=== PATIENT | female | born 1990 | race Caucasian/White ===

== ENCOUNTER 2021-08-13 14:04 | Outpatient (REF) | payer OTHER, SELFPAY ==
[2021-08-13 16:34] LABS: MANUAL DIFF FLAG NO
[2021-08-13 16:41] LABS: Basophils Percent Auto 0.2 % (0-2); Eosinophils Absolute Auto 0.1 X10*3/uL (0.0-0.4); Eosinophils Percent Auto 0.5 % (0-4); Hematocrit 41.7 % (37.0-47.0); Hemoglobin 13.4 g/dl (12.0-16.0); Imm Gran Abs Auto 0.04 X10*3/uL (0.00-0.03); Imm Gran Pct Auto 0.4 % (0.0-0.4); Lymphocytes Absolute Auto 2.3 X10*3/uL (1.2-4.9); Lymphocytes Percent Auto 23.2 % (20-40); Mean Corpuscular HGB Conc 32.1 g/dl (31.0-35.0); Mean Corpuscular Hemoglobin 29.1 pg (27.0-33.0); Mean Corpuscular Volume 90.5 fL (80.0-98.0); Mean Platelet Volume 11.8 fL (9.4-12.3); Monocytes Absolute Auto 0.6 X10*3/uL (0.1-1.2); Monocytes Percent Auto 5.7 % (2-11); Platelet Count 355 X10*3/uL (160-400); Red Blood Count 4.61 X10*6/uL (4.20-5.50); Red Cell Distribution Width 13.1 % (11.0-16.0)
[2021-08-13 16:47] LABS: Alanine Aminotransferase 19 U/L (0-31); Albumin Level 4.4 g/dL (3.5-5.0); Alkaline Phosphatase 66 U/L (39-117); Anion Gap 12 (12-20); Aspartate Amino Transferase 14 U/L (5-31); Bilirubin Total 0.6 mg/dL (0.0-1.0); Blood Urea Nitrogen 12 mg/dL (9-16); Calcium 9.3 mg/dL (8.4-10.2); Carbon Dioxide 24 mmol/L (22-29); Chloride 104 mmol/L (96-108); Cholesterol 176 mg/dL; Estimated Glomerular Filt Rate > 60; Glucose Fasting 87 mg/dL (60-99); HDL Cholesterol 40 mg/dL; LDL Cholesterol Calculated 109 mg/dl; Potassium 4.2 mmol/L (3.3-5.1); Sodium 136 mmol/L (135-145); Total Protein 7.6 g/dL (6.5-8.0); Triglycerides 138 mg/dL
[2021-08-13 17:08] LABS: TSH reflex Free T4 1.29 uIU/mL (0.32-4.0)
== END 2021-08-13 14:05 | disposition home or self-care (01) ==
LOC: HO.HMGCLDS 14:04
PROVIDERS: Visit Provider Internal Medicine
DX: Z00.01 Encounter for general adult medical examination with abnormal findings (principal); E66.01 Morbid (severe) obesity due to excess calories; F33.9 Major depressive disorder, recurrent, unspecified; F41.1 Generalized anxiety disorder
CPT/HCPCS: 36415; 80053; 80061; 84443; 85025

== ENCOUNTER → 2022-10-15 15:24 | Outpatient (BNVA) | payer OTHER, SELFPAY | PROVIDERS: PCP Internal Medicine; Visit Provider Physician Assistant | DX: Z13.89 Encounter for screening for other disorder (principal) ==

== ENCOUNTER → 2022-10-20 08:04 | Outpatient (BNVA) | payer OTHER, SELFPAY | PROVIDERS: PCP Internal Medicine; Visit Provider Surgery ==

== ENCOUNTER 2022-10-28 12:27 | Outpatient (REF) | payer OTHER, SELFPAY ==
--- NOTE | ~2022-10-28 | XR_ITS ---
EXAMINATION: XR CHEST CLINICAL INFORMATION: Obesity COMPARISON: None available. TECHNIQUE: 2 views of the chest were obtained. FINDINGS: No significant abnormality is noted involving the heart, lungs, mediastinum, bony thorax or soft tissues. XR/XR chest 2V IMPRESSION: Unremarkable examination.
--- NOTE | 2022-10-28 12:32 | ECG_ITS ---
Test Reason : MORBID OBESITY Blood Pressure : / mmHG Vent. Rate : 081 BPM Atrial Rate : 081 BPM P-R Int : 168 ms QRS Dur : 096 ms QT Int : 390 ms P-R-T Axes : 056 022 029 degrees QTc Int : 453 ms Normal sinus rhythm Incomplete right bundle branch block Borderline ECG No previous ECGs available Referred By: Tanner Nicholson Electronically Signed By:Chato Silva
[2022-10-28 12:47] LABS: MANUAL DIFF FLAG NO
[2022-10-28 14:30] LABS: Basophils Percent Auto 0.6 % (0-2); Eosinophils Percent Auto 0.6 % (0-4); Hematocrit 41.7 % (37.0-47.0); Hemoglobin 13.7 g/dl (12.0-16.0); Imm Gran Abs Auto 0.01 X10*3/uL (0.00-0.03); Imm Gran Pct Auto 0.1 % (0.0-0.4); Lymphocytes Absolute Auto 1.6 X10*3/uL (1.2-4.9); Mean Corpuscular HGB Conc 32.9 g/dl (31.0-35.0); Mean Corpuscular Hemoglobin 29.3 pg (27.0-33.0); Mean Corpuscular Volume 89.1 fL (80.0-98.0); Mean Platelet Volume 11.4 fL (9.4-12.3); Monocytes Absolute Auto 0.5 X10*3/uL (0.1-1.2); Monocytes Percent Auto 6.8 % (2-11); Neutrophils Absolute Auto 4.9 x10*3/uL (2.0-8.3); Neutrophils Percent Auto 68.9 % (45-73); Platelet Count 353 X10*3/uL (160-400); Red Blood Count 4.68 X10*6/uL (4.20-5.50); Red Cell Distribution Width 12.4 % (11.0-16.0)
[2022-10-28 14:55] LABS: Estimated Average Glucose 85 mg/dL; Hemoglobin A1c % 4.6 %
[2022-10-28 16:28] LABS: Ferritin 56 ng/mL (10-122); Folate 15.5 ng/mL (> or = 4.0); Insulin 14 uU/mL (2-29); TSH reflex Free T4 1.78 uIU/mL (0.32-4.0); Vitamin B12 376 pg/mL (200-900); Vitamin D 25-OH Total 7.8 ng/mL (>30)
[2022-10-28 17:10] LABS: Alanine Aminotransferase 24 U/L (0-31); Albumin Level 4.5 g/dL (3.5-5.0); Alkaline Phosphatase 70 U/L (39-117); Anion Gap 15 (12-20); Aspartate Amino Transferase 18 U/L (5-31); Bilirubin Total 0.8 mg/dL (0.0-1.0); Blood Urea Nitrogen 9 mg/dL (9-16); C Reactive Protein 0.17 mg/dL (< or = 0.50); Calcium 9.6 mg/dL (8.4-10.2); Carbon Dioxide 23 mmol/L (22-29); Chloride 107 mmol/L (96-108); Cholesterol 169 mg/dL; Estimated Glomerular Filt Rate > 60; Glucose Random 82 mg/dL (60-115); HDL Cholesterol 39 mg/dL; Iron 60 mcg/dL (30-160); LDL Cholesterol Calculated 114 mg/dl; Percent Iron Saturation 21 % (15-50); Potassium 4.3 mmol/L (3.3-5.1); Sodium 142 mmol/L (135-145); Total Iron Binding Capacity 289 mcg/dL (228-428); Total Protein 7.3 g/dL (6.5-8.0); Triglycerides 84 mg/dL; Unsaturated Iron Binding 229 ug/dL
[2022-10-29 13:14] LABS: Calcium (PTHI) 9.6 mg/dL (8.6-10.2); PTHI 115 pg/mL (16-77)
[2022-11-02 16:08] LABS: Zinc 73 mcg/dL (60-130)
[2022-11-04 03:59] LABS: Vitamin A 36 mcg/dL (38-98)
[2022-11-04 05:19] LABS: Vitamin B1 7 nmol/L (8-30)
== END 2022-10-28 12:28 | disposition home or self-care (01) ==
LOC: HO.XRAY 12:27
PROVIDERS: PCP Internal Medicine; Visit Provider Surgery
DX: Z11.2 Encounter for screening for other bacterial diseases (principal); E66.01 Morbid (severe) obesity due to excess calories
CPT/HCPCS: 36415; 71046; 80053; 80061; 82306; 82607; 82728; 82746; 83036; 83525; 83540; 83970; 84425; 84443; 84590; 84630; 85025; 86140; 93005

== ENCOUNTER 2022-10-28 19:08 | Outpatient (REF) | payer OTHER, SELFPAY ==
[2022-10-30 14:54] LABS: H Pylori Breath Test Negative (Negative)
== END 2022-10-28 19:09 | disposition home or self-care (01) ==
LOC: HO.LNP 19:08
PROVIDERS: Visit Provider Surgery
DX: E66.01 Morbid (severe) obesity due to excess calories (principal)
CPT/HCPCS: 83013

== ENCOUNTER → 2022-11-07 16:00 | Outpatient (BNVA) | payer OTHER, SELFPAY | PROVIDERS: PCP Internal Medicine; Visit Provider Counselor Mental Health ==

== ENCOUNTER → 2022-11-19 08:08 | Outpatient (BNVA) | payer OTHER, SELFPAY | PROVIDERS: PCP Internal Medicine; Visit Provider Surgery ==

== ENCOUNTER → 2022-11-26 15:47 | Outpatient (BNVA) | payer OTHER, SELFPAY | PROVIDERS: PCP Internal Medicine; Visit Provider Dietitian, Registered | DX: E66.9 Obesity, unspecified (principal); Z71.3 Dietary counseling and surveillance | CPT/HCPCS: 97802 ==

== ENCOUNTER 2022-11-27 08:13 | Outpatient (REF) | payer OTHER, SELFPAY ==
--- NOTE | ~2022-11-27 | FL_ITS ---
EXAMINATION: XR FL UPPER GI WITH AIR CLINICAL INFORMATION: Morbid/severe obesity due to excess calories. COMPARISON: None available. TECHNIQUE: Routine upper GI air-contrast study was performed in upright and lying position. FINDINGS: Following oral administration of thick barium and effervescent granules, there is normal propagation of bolus from the oral cavity through the pharynx, esophagus into stomach without any evidence of obstruction, narrowing or stricture. The course, caliber and peristalsis of the stomach, duodenal bulb and the sweep is normal. The mucosal pattern of the stomach and the duodenum is normal. FLUOROSCOPY TIME: 1.3 minutes. DOSE AREA PRODUCT: 32.225 uGy-m2 (microgray-meter squared). FL/FL upper GI w air IMPRESSION: Unremarkable upper GI air-contrast study.
== END 2022-11-27 08:14 | disposition home or self-care (01) ==
LOC: HO.XRAY 08:13
PROVIDERS: PCP Internal Medicine; Visit Provider Surgery
DX: E66.01 Morbid (severe) obesity due to excess calories (principal)
CPT/HCPCS: 74246

== ENCOUNTER 2022-11-28 13:05 | Outpatient (REF) | payer OTHER, SELFPAY ==
--- NOTE | ~2022-11-28 | US_ITS ---
EXAMINATION: US COMPLETE ABDOMEN WITH LIVER ELASTOGRAPHY CLINICAL INFORMATION: Obesity COMPARISON: None available. TECHNIQUE: Real-time imaging of the abdominal viscera. Noninvasive ultrasound liver fibrosis assessment is performed using Laura ElastPQ point quantification shear wave elastography (2D-SWE) with a C5-2 MHz transducer. Multiple elastography samples are obtained. FINDINGS: PANCREAS: Not well visualized due to bowel gas. ABDOMINAL AORTA: The proximal, middle, and distal aortic segments are normal in caliber. INFERIOR VENA CAVA: Visualized portions are normal. LIVER: Liver echotexture is slightly increased. The liver is normal in size and contour.. No focal lesion or intrahepatic biliary duct dilatation. The right lobe measures 17 cm in length. The left lobe measures 10 cm in length. Portal flow is normal/hepatopedal Shear wave liver elastography median stiffness is 1.6 m/s (reference: normal median stiffness is 1.3 m/s or less). IQR/median stiffness to assess sampling precision is 0.06 (reference: good quality data set is IQR/median stiffness of 0.15 or less). GALLBLADDER: Normal. The gallbladder is physiologically distended without evidence of stones, sludge, polyps, wall thickening or pericholecystic fluid. COMMON BILE DUCT: Normal in caliber measuring 0.4 cm in diameter. RIGHT KIDNEY: 2 echogenic foci with twinkle artifact suggestive of stones measuring 9 x 4 x 7 mm and 5 x 4 x 5 mm in the midpole. No hydronephrosis. No focal parenchymal lesions. The kidney measures 10 cm in maximum dimension. LEFT KIDNEY: 1.3 x 1 x 1.1 cm cyst in the midpole. No imaging follow-up recommended. No hydronephrosis. No renal calculi or focal parenchymal lesions. The kidney measures 11.4 cm in maximum dimension. SPLEEN: Likely enlarged The spleen measures 14 cm in maximum dimension. FREE FLUID: None. US/US abdomen comp w elastography IMPRESSION: 1. Impression echogenic liver probably representing fatty infiltration. Right renal stones. Limited visualization of the pancreas. 2. Liver elastography: Adequate liver sampling. In the absence of other known clinical signs, rules out compensated advanced chronic liver disease. REFERENCE: Society of Radiologists in Ultrasound Liver Stiffness Thresholds (2020): LIVER STIFFNESS THRESHOLDS: *Liver Stiffness equal or less than 1.3 m/s: High probability of being normal. *Liver Stiffness less than 1.7 m/s: In the absence of other known clinical signs, rules out compensated advanced chronic liver disease. *Liver Stiffness 1.7-2.1 m/s: Suggestive of compensated advanced chronic liver disease but need further test for confirmation. *Liver Stiffness over 2.1 m/s: Rules in compensated advanced chronic liver disease. *Liver Stiffness over 2.4 m/s: Suggestive of clinically significant portal hypertension. QUALITY OF DATA SET: *IQR/Median value equal or less than 0.15 implies a quality data set. *IQR/Median value over 0.15 implies a poor quality data set. SIGNIFICANT CHANGE FROM PRIOR EXAM: Significant change if liver stiffness measurement is 10% or greater from prior exam. OTHER CONSIDERATIONS: The stage of liver fibrosis may be overestimated in the setting of acute hepatitis, liver inflammation, elevated liver function tests, hepatic vascular congestion, obstructive cholestasis, non-fasting state, and infiltrative diseases such as amyloidosis and lymphoma. In some patients with NAFLD, the liver stiffness thresholds for compensated advanced chronic liver disease may be lower. In causes other than viral hepatitis and NAFLD, liver stiffness thresholds are not well established.
== END 2022-11-28 13:06 | disposition home or self-care (01) ==
LOC: HO.US 13:05
PROVIDERS: PCP Internal Medicine; Visit Provider Surgery
DX: E66.01 Morbid (severe) obesity due to excess calories (principal)
CPT/HCPCS: 76705; 76981

== ENCOUNTER → 2022-12-03 14:36 | Outpatient (BNVA) | payer OTHER, SELFPAY | PROVIDERS: PCP Internal Medicine; Visit Provider Internal Medicine ==

== ENCOUNTER → 2022-12-04 10:51 | Outpatient (BNVA) | payer OTHER, SELFPAY | PROVIDERS: PCP Internal Medicine; Visit Provider Surgery ==

== ENCOUNTER 2022-12-05 08:55 | Inpatient (IN) | payer OTHER, SELFPAY ==
[2022-12-04 11:46] LABS: MANUAL DIFF FLAG NO
[2022-12-04 11:54] VITALS: BMI 39.5
[2022-12-04 12:00] LABS: Basophils Percent Auto 0.4 % (0-2); Eosinophils Percent Auto 0.6 % (0-4); Hematocrit 41.9 % (37.0-47.0); Hemoglobin 13.9 g/dl (12.0-16.0); Imm Gran Abs Auto 0.02 X10*3/uL (0.00-0.03); Imm Gran Pct Auto 0.3 % (0.0-0.4); Lymphocytes Absolute Auto 1.7 X10*3/uL (1.2-4.9); Lymphocytes Percent Auto 25.7 % (20-40); Mean Corpuscular HGB Conc 33.2 g/dl (31.0-35.0); Mean Corpuscular Volume 87.3 fL (80.0-98.0); Mean Platelet Volume 10.9 fL (9.4-12.3); Monocytes Absolute Auto 0.5 X10*3/uL (0.1-1.2); Monocytes Percent Auto 7.3 % (2-11); Neutrophils Absolute Auto 4.4 x10*3/uL (2.0-8.3); Neutrophils Percent Auto 65.7 % (45-73); Platelet Count 319 X10*3/uL (160-400); Red Cell Distribution Width 12.5 % (11.0-16.0); White Blood Count 6.7 X10*3/uL (4.8-10.8)
[2022-12-04 12:07] LABS: Prothrombin Time 11.8 SEC (10.0-13.1)
[2022-12-04 12:43] LABS: COVID-19 Test Negative (Negative); IDNOW Serial# BCCEAD1C
[2022-12-04 12:49] LABS: Alanine Aminotransferase 17 U/L (0-31); Albumin Level 4.5 g/dL (3.5-5.0); Alkaline Phosphatase 68 U/L (39-117); Anion Gap 10 (12-20); Aspartate Amino Transferase 15 U/L (5-31); Bilirubin Total 1.3 mg/dL (0.0-1.0); Blood Urea Nitrogen 15 mg/dL (9-16); C Reactive Protein 0.74 mg/dL (< or = 0.50); Calcium 9.1 mg/dL (8.4-10.2); Carbon Dioxide 24 mmol/L (22-29); Chloride 109 mmol/L (96-108); Cholesterol 167 mg/dL; Creatinine Clr Calc Pharmacy 119.7; Estimated Glomerular Filt Rate > 60; Glucose Random 83 mg/dL (60-115); HDL Cholesterol 35 mg/dL; Insulin 11 uU/mL (2-29); LDL Cholesterol Calculated 115 mg/dl; Sodium 139 mmol/L (135-145); TSH reflex Free T4 1.96 uIU/mL (0.32-4.0); Total Protein 8.1 g/dL (6.5-8.0); Triglycerides 88 mg/dL
[2022-12-04 13:06] LABS: Estimated Average Glucose 80 mg/dL; Hemoglobin A1c % 4.4 %
--- NOTE | 2022-12-04 18:05 | P.HPSUR_ITS ---
Pre-Procedural Eval Section A Date of Service: 12/04/22 The patient is an INPATIENT: Yes Changes since office visit: Yes Patient answered all questions The History & Physical has been completed within 30 days and I have reviewed it.: Yes Section B Chief Complaint: Obesity, unspecified Relevant Family History (Specify if Yes): No Relevant Social History: None Present Medications: None Medical History: No relevant PMH History of Previous Operations: No relevant previous surgery Allergies: Allergies Allergy/AdvReac Type Severity Reaction Status Date / Time No Known Allergies Allergy Verified 12/04/22 17:45 Review of Systems Sugical H&P ROS: Negative: Constitution, Cardiovascular, Respiratory, Neurological, Psychiatric, Hem-Onc, Allergic/Immunologic, Gastrointestinal, Genitourinary, Musculoskeletal, Integumentary, Endocrine and Eyes/Ears/Nose/Throat Exam Surgical H&P Exam: Normal: HEENT, Normal: Heart, Normal: Lungs, Normal: Ext remities, Normal: Abdomen, Normal: Skin and Normal: Neurological Plan Diagnosis/Plan: Unchanged I have reviewed the history and physical and performed a pertinent physical examination on my patient. No changes have occurred unless specified. Time Spent With Patient Time: Total time managing care of this patient today ____ minutes.
[2022-12-05] VITALS (9 sets, daily range): BP systolic 114–136; BP diastolic 59–88; PULSE 76–102; RESP 12–20; TEMP 36.4–36.9; O2SAT 95–99; BMI 38.5; BMI 42.0
[2022-12-05 09:11] LABS: UPreg QC Valid YES; Urine Pregnancy NEGATIVE (NEGATIVE)
--- NOTE | 2022-12-05 09:34 | PHA.MEDREC ---
Pharmacy Consult ? Medication Reconciliation Pharmacy has reviewed the medication reconciliation completed by nursing.
[2022-12-05] MEDS: Lactated Ringers 1,000 ML 999 ML IV ×2 (09:36→10:37)
[2022-12-05] MEDS: Aprepitant 32 MG/4.4 ML VIAL IVPUSH (09:36)
--- NOTE | 2022-12-05 10:41 | PC.NURSE ---
Correction of EMar. Administered 1000ml of LR at 0930 at 999ml and 2nd bag of LR 1000ml hung upon completion at kvo.
--- NOTE | 2022-12-05 11:33 | P.CONAN_ITS ---
[facility] Active Problems Active Problems: All Active Problems (Updated 12/04/22 @ 10:43 by Tanner Nicholson MD) Morbid obesity due to excess calories (Acute) Major depression, recurrent (Acute) Anxiety, generalized (Acute) Encounter for general adult medical examination with abnormal findings (Acute) Viral illness (Acute) Vitamin D deficiency (Acute) Vitamin B12 deficiency (Acute) Vitamin A deficiency (Acute) Vitamin B1 deficiency (Acute) Obesity (Acute) BMI 39.0-39.9,adult (Acute) BMI 38.0-38.9,adult (Acute) PTSD (post-traumatic stress disorder) (Acute) Past Medical History Medical History (Updated 12/04/22 @ 10:43 by Tanner Nicholson MD) History of kidney stones Manic depression PTSD (post-traumatic stress disorder) Family History Family History Sister Substance use disorder Mental health disorder Brother Substance use disorder Mental health disorder Mother Substance use disorder Mental health disorder Father Substance use disorder Mental health disorder Other Patient unsure of family history Family history of problems with anesthesia: No Surgical History Surgical History (Updated 12/04/22 @ 11:53 by Arianna Wilkes RN) History of lithotripsy History of Problems with Anesthesia: No Social History Social History Household Members Other:: Parents Housing: Apartment Are you a primary child care nurse to a significant other at home: No Do you presently have visiting nurse or other home services: No Patient Tobacco Use Status: Never used Tobacco e-Cigarette/Vaping Use: Currently Using (less than monthly ) Use of substances other than those prescribed or required for medical reasons: Yes Substance Use Type Other:: Medically Marijuana - PTSD Have you been hit, kicked, punched, or otherwise hurt by someone within the past year? If so, by whom?: No Are you DNR?: No Advance Directives: No Advance Directives Information Provided: No Advance Directives on File: No Recently lost weight without trying: No How much weight loss: 24-33 pounds Eating poorly because of decreased appetite: No Nutrition screen score: 3 Nutrition Risks: No Nutritional Risk Patient : No FDLMP: 11/12/22 : No Poor oral hygiene: No (intact) service: No Current occupational status: employed Cognitive needs: No Hearing needs: No Vision needs: No Meds Allergies Allergy/AdvReac Type Severity Reaction Status Date / Time No Known Allergies Allergy Verified 12/04/22 17:45 Exam Exam Date and Time: December 05, 2022 1133 Height,Weight and Vital Signs: Height 5 ft 3 in Weight 98.52 kg Last Vital Signs Temp 98.1 F 12/05/22 09:09 Pulse 76 12/05/22 09:09 Resp 18 12/05/22 09:09 BP 114/72 12/05/22 09:09 Pulse Ox 97 12/05/22 09:09 O2 Del Method Room Air 12/05/22 09:09 Pertinent Lab Results Pertinent Lab Results: Laboratory Tests 12/04/22 12/04/22 12/04/22 11:35 11:35 11:35 WBC 6.7 RBC 4.80 Hgb 13.9 Hct 41.9 MCV 87.3 MCH 29.0 MCHC 33.2 RDW 12.5 Plt Count 319 MPV 10.9 Immature Gran % (Auto) 0.3 Neut % (Auto) 65.7 Lymph % (Auto) 25.7 Hood % (Auto) 7.3 Eos % (Auto) 0.6 Baso % (Auto) 0.4 Lymph # (Auto) 1.7 Hood # (Auto) 0.5 Eos # (Auto) 0.0 Baso # (Auto) 0.0 Abs Immat Gran (auto) 0.02 Absolute Neuts (auto) 4.4 Absolute Nucleated RBC 0.000 Nucleated RBC % (auto) 0.0 PT 11.8 INR 1.0 APTT 32.0 Sodium 139 Potassium 4.0 Chloride 109 H Carbon Dioxide 24 Anion Gap 10 L BUN 15 Creatinine 0.78 Estim Creat Clear Calc 119.7 Estimated GFR > 60 Random Glucose 83 Estimat Average Glucose Hemoglobin A1c % Insulin Level 11 Calcium 9.1 Total Bilirubin 1.3 H AST 15 ALT 17 Alkaline Phosphatase 68 C-Reactive Protein 0.74 H Total Protein 8.1 H Albumin 4.5 Triglycerides 88 Cholesterol 167 LDL Cholesterol, Calc 115 HDL Cholesterol 35 TSH 1.96 Urine Test COVID-19 ([facility]) COVID-19 Clin Com Blood Type Antibody Screen 12/04/22 12/04/22 12/04/22 11:35 11:35 12:10 WBC RBC Hgb Hct MCV MCH MCHC RDW Plt Count MPV Immature Gran % (Auto) Neut % (Auto) Lymph % (Auto) Hood % (Auto) Eos % (Auto) Baso % (Auto) Lymph # (Auto) Hood # (Auto) Eos # (Auto) Baso # (Auto) Abs Immat Gran (auto) Absolute Neuts (auto) Absolute Nucleated RBC Nucleated RBC % (auto) PT INR APTT Sodium Potassium Chloride Carbon Dioxide Anion Gap BUN Creatinine Estim Creat Clear Calc Estimated GFR Random Glucose Estimat Average Glucose 80 Hemoglobin A1c % 4.4 Insulin Level Calcium Total Bilirubin AST ALT Alkaline Phosphatase C-Reactive Protein Total Protein Albumin Triglycerides Cholesterol LDL Cholesterol, Calc HDL Cholesterol TSH Urine Test COVID-19 ([facility]) Negative COVID-[employer] See Note Blood Type O Positive Antibody Screen NEGATIVE 12/05/22 08:58 WBC RBC Hgb Hct MCV MCH MCHC RDW Plt Count MPV Immature Gran % (Auto) Neut % (Auto) Lymph % (Auto) Hood % (Auto) Eos % (Auto) Baso % (Auto) Lymph # (Auto) Hood # (Auto) Eos # (Auto) Baso # (Auto) Abs Immat Gran (auto) Absolute Neuts (auto) Absolute Nucleated RBC Nucleated RBC % (auto) PT INR APTT Sodium Potassium Chloride Carbon Dioxide Anion Gap BUN Creatinine Estim Creat Clear Calc Estimated GFR Random Glucose Estimat Average Glucose Hemoglobin A1c % Insulin Level Calcium Total Bilirubin AST ALT Alkaline Phosphatase C-Reactive Protein Total Protein Albumin Triglycerides Cholesterol LDL Cholesterol, Calc HDL Cholesterol TSH Urine Test NEGATIVE COVID-19 ([facility]) [employer] Blood Type Antibody Screen Airway Mallampati Class: II TM Dist: >3cm Neck ROM: Full Heart: rrr Lungs: cta Assessment and Plan Assessment Anesthesia Assessment: Anesthesia Plan Discussed and Chart Reviewed Final Anesthetic Review Family History of Problems with Anesthesia: No History of Problems with Anesthesia: No NPO: Yes ASA Class: III Final Preanesthetic Review: No Changes in Pt Med Stat, Meds/Allgs Chart Reviewed and Consent Obtained/Reviewed Patient Risk: Intermediate Procedure Risk: Intermediate Anesthetic Plan Anesthetic Plan: GA Disposition: Standard PACU
--- NOTE | 2022-12-05 13:56 | PM.DS ---
DS: Providers Provider Date of Service: 12/06/22 Date of admission: 12/05/22 08:55 Primary care physician: Dorothy Batista MD DS: Summary Hospital Course Hospital Course: ADMITTING DIAGNOSIS: morbid obesity, anxiety, PTSD ? DISCHARGE DIAGNOSIS: same, s/p laparoscopic sleeve gastrectomy ? PAST SURGICAL HISTORY: lithotripsy ? PROCEDURE: upper endoscopy, laparoscopic sleeve gastrectomy ? DISCHARGE SUMMARY: ? History of Present Illness: ? The patient is a?32 year-old woman with a BMI of?42.2 kg/m2 and associated co-morbidities as described above. The patient had extensive work-up,lost?19.8 lbs preoperatively and was electively scheduled for laparoscopic, possible open sleeve gastrectomy and gastropexy. Risks and complications of the surgery were discussed with the patient in advance, particularly the possibility of , pulmonary embolism, anastomotic leak, bleeding, bowel injury, GERD, cardiac, renal or pulmonary complications. The patient understood all the risks and was in agreement with the surgical plan. ? Hospital Course: ? The patient underwent an uneventful laparoscopic sleeve gastrectomy with gastropexy on the day of admission. Postoperatively, the patient was transferred to the surgical floor. The patient received IV Acetaminophen and IV dilaudid for pain control. Patient was started on bariatric phase 1 diet POD #0. On postoperative day one, the patient was feeling well without nausea, vomiting, fevers, or tachycardia. The patient had some mild incisional pain and the abdomen was soft. ? On the morning of postoperative day one, the patient was continued on 1 ounce of water or ice every half hour. During the day, the patient did fairly well, having some incisional pain, but able to ambulate adequately and to tolerate liquids well. ? Since the patient is doing well, we decided that the patient was ready to be discharged. The patient was given instructions to follow-up with me next week and to call my office for any fever over 101, persistent abdominal pain, nausea, vomiting, GERD, symptoms of DVT such as calf tenderness, or leg swelling, or pulmonary embolism such as chest pain or shortness of breath. The patient was also instructed to drink 40-60 ounces of liquids per day using the 1-ounce cups. The patient had been given prescriptions for Tylenol for pain, Zofran prn for nausea, and pantoprazole and carafate previously. The patient was encouraged to ambulate and use the incentive spirometer. The patient was allowed to shower, but no baths, and encouraged to stay active at home. All of these instructions were given to the patient personally. All questions were answered and the patient understood all instructions, the instructions were also given to the patient in print. Time Spent with Patient Time attestation: Total time managing care of this patient today ____ minutes. Discharge coordination time: Less than 30 minutes Quality: Safe Use of Opioids Does Pt have an Active Cancer Diagnosis on the Problem List?: No Quality: Stroke Does the patient have a stroke diagnosis?: No Physical Exam Vital Signs: Vital Signs: Last Vital Signs Temp 98.1 F 12/05/22 09:09 Pulse 76 12/05/22 09:09 Resp 18 12/05/22 09:09 BP 114/72 12/05/22 09:09 Pulse Ox 97 12/05/22 09:09 O2 Del Method Room Air 12/05/22 09:09 BMI result Body Mass Index 38.5 DS: Data Data Completed and Pending Pending studies at discharge: Pending at discharge 12/05/22 13:11 Surgical [PTH] Routine Labs on day of discharge: Laboratory Results - last 24 hr 12/05/22 08:58 Urine Test NEGATIVE Discharge Plan Discharge Anticipated Discharge Date/Time: 12/06/22 13:58 Patient Disposition: Home, Self-Care Discharge Diagnosis: s/p laparoscopic sleeve gastrectomy Referrals: Dorothy Batista MD [Primary Care Provider] - 1 Week Discharge Medications: Continued pantoprazole 40 mg tablet,delayed release (DR/EC) 40 mg PO DAILY Qty: 90 2RF sucralfate 100 mg/mL suspension 10 ml PO BID Qty: 400 2RF ondansetron 4 mg tablet,disintegrating 4 mg PO Q12H Qty: 20 0RF Rx Instructions: ONLY use if you have nausea as needed Discontinued cholecalciferol (vitamin D3) 125 mcg (5,000 unit) capsule 125 mcg PO DAILY Qty: 30 2RF mecobalamin (vitamin B12) 1,000 mcg tablet,disintegrating 1,000 mcg sublingual DAILY Qty: 30 2RF Rx Instructions: place tablet under tongue and allow to dissolve for at least30 secs before swallowing polyethylene glycol 3350 [Miralax] 17 gram powder in packet 17 g PO DAILY Qty: 14 0RF Rx Instructions: Mix each packet with 8oz of water, Crystal light, or Gatorade zero, or Propel and do 14 packets today vitamin A palmitate 3,000 mcg (10,000 unit) capsule 10,000 unit PO DAILY Qty: 30 1RF thiamine HCl (vitamin B1) 100 mg tablet 100 mg PO DAILY Qty: 30 2RF Discharge Orders: Discharge Order (Routine); Ordered 12/06/22 Ordered By: Sincere Landa Activity on Discharge: No heavy lifting Stand Alone Forms: Patient Portal Discharge page Care Plan Goals: weight loss Health Concerns: obesity Plan of Treatment: No tub baths, sex or returning to work until discussed at first post op appointment. No exercise, alcohol, tobacco or illegal drug use. Continue to use incentive spirometer hourly while awake. Walk in home for 5- 10 minutes every 2 hours during the first week. Follow all instructions in the bariatric handbook and call with any questions.Discharge Instructions 1. Please call your doctor or come back to the emergency room should any new symptoms arise. 2. You will receive a courtesy call from [facility] 24-48 hours after discharge. 3. Activity: abstain from alcohol, practice limited stair climbing, no bending, no driving, no exercise, no illicit substances, no lifting, no sex, no tub bath, no work. 4. Diet: continue as discussed with Dr. Nicholson. 5. Dressing Change/Wound Care: Your incision is covered by clear bandages and guaze underneath. If the area is tender, you may apply an ice pack for short intervals (no more than 20 minutes on, followed by at least 20 minutes off). Do not apply heat. Do not use creams, lotions, or topical antibiotics unless instructed to do so by your surgeon. These can cause infection or allergic reaction. 6. Call your doctor if: - Your temperature exceeds 101.5 F - You experience excessive pain or swelling - You have an unexpected reaction to medication - You have excessive bleeding - You experience continued vomiting/nausea - Your incision begins to separate - Your incision shows signs of infection such as increased redness, swelling, excessive pain, heat, or drainage (light blood or clear fluid is normal) 7. General instructions: No lifting greater than 5 lbs for the next 4 weeks[address] within 24 hours of taking narcotic pain medications. If you do not move your bowels in the next 2 days, please take milk of magnesia over the counter. Please follow the post op diet and do not advance your diet until you are seen in the office in about 2 weeks. Please walk around your home every hour or two to prevent blood clots from forming in your legs. You do not need to wake from sleeping to walk. Please sleep in a bed or couch to prevent kinking at the hips and knees. Please take your incentive spirometer (your lung marine mammal trainer) home with you and use it for the next few days to prevent pneumonias. You may shower, no hot tubs, baths or swimming pools. Please call the office with any questions or concerns such as increasing abdominal pain, fever, chills, shortness of breath, chest pain, leg pain or swelling, or redness or drainage from your incisions. Please stay on stage 3 diet which includes sugar free clear liquids such as ice pops and jello and broth and crystal light. Avoid all carbonation. Please drink 3 protein shakes with at least 25-30 grams of protein daily or 3 of the Celebrate 4:1 shakes which can be purchased in our office. The Celebrate shakes have all of the bariatric vitamins you need if you consume these shakes. If you are drinking other protein shakes, you will need to purchase the Celebrate multivitamins and calcium that we provide in the office (they will provide all the vitamins you need). Please make sure you are consuming at least 40-60 ounces of water in addition to your 3 protein shakes daily. Do not hesitate to contact the office with any questions at . The patient's medical history has been reviewed and they are considered low risk for post op DVT and therefore DVT prophylaxis is not considered necessary. Travel after surgery was reviewed. The patient has not disclosed any travel plans during the first 30 days after surgery and they have been advised that within the first 30 days after surgery any bus, plane, train or car travel over 2 hours in duration is contraindicated due to the possibility of developing blood clots from immobility. Any travel, needs to include periods of ambulation of 10 minutes in duration every 2 hours.? The patient was instructed to discuss any plans for travel during this period with their bariatric surgeon. Assessment: stable s/p laparoscopic sleeve gastrectomy
[2022-12-05 14:24] LABS: Hematocrit 40.2 % (37.0-47.0); Hemoglobin 13.4 g/dl (12.0-16.0)
[2022-12-05 14:42] LABS: Anion Gap 13 (12-20); Blood Urea Nitrogen 10 mg/dL (9-16); Calcium 9.1 mg/dL (8.4-10.2); Carbon Dioxide 21 mmol/L (22-29); Chloride 107 mmol/L (96-108); Creatinine Clr Calc Pharmacy 124.3; Estimated Glomerular Filt Rate > 60; Glucose Random 92 mg/dL (60-115); Potassium 4.2 mmol/L (3.3-5.1); Sodium 137 mmol/L (135-145)
[2022-12-05] MEDS: Lactated Ringers 1,000 ML 100 ML IVCONT (14:48)
[2022-12-05] MEDS: ceFAZolin Sodium/Dextrose,Iso 2 GM/50 ML PIGGYBACK IV (17:44)
[2022-12-05] MEDS: Famotidine/PF 20 MG/2 ML VIAL IVPUSH (20:51)
[2022-12-05] MEDS: Acetaminophen 1,000 MG/100 ML PIGGYBACK 400 MG IV (23:00)
--- NOTE | 2022-12-05 23:48 | P.BOP_ITS ---
Brief Operative Note Date of Service: 12/05/22 Pre-op diagnosis: Severe obesity with comorbidities (see below) Post-op diagnosis: same Procedure: INITIAL PATIENT BMI ON PRESENTATION AT OUR OFFICE: 42.2 kg/m2 LAST BMI BEFORE SURGERY: 38.7 kg/m2 COMORBIDITIES: Depression, anxiety, nephrolithiasis, liver steatosis, liver fibrosis ?The patient presented to the Weight Management Program with significant obesity that was negatively impacting the patient's comorbidities as listed above.? The program is a phased program with a special focus on preoperative medical weight management to promote substantial weight loss and prepare the patients for the second phase of the program: bariatric surgery. The patient participated in an intensive weekly lifestyle ?intervention and exercise program during which the patient ?has lost between the initial office visit and the last preoperative visit 19.8lbs, or 8.32% of initial actual body weight. It was deemed appropriate for the patient to now have bariatric surgery. In light of the current Covid-19 pandemic and the well documented strong association of obesity and increased risk of worse outcomes if infected with Covid-19 (REFERENCES: https://pubmed.ncbi.nlm.nih.gov/17869415/ ,? https://pubmed.ncbi.nlm.nih.gov/37925968/ ), any delay in undergoing bariatric surgery may lead to the patient's worsening health condition and increased?risk of more severe Covid-19 disease if infected. In addition a recent?study from [facility] published in [facility] on 06/10/2021 ([email or web address]) found that, among patients with obesity, substantial weight loss achieved with surgery was associated with improved outcomes of COVID-19 infection. The findings suggest that obesity can be a modifiable risk factor for the severity of COVID-19 infection. In addition, the patient met the BMI-criteria for bariatric surgery based on the BMI on initial presentation. The patient should not be penalized for achieving such weight loss because ?it is not sustainable long-term without surgical intervention and it was achieved in preparation for bariatric surgery ?under my direction and based on my published research ([email or web address]).[email or web address] and? https://www.soard.org/article/[email or web address])46483-X/pdf ) ?that a 10% preopera tive weight loss improves long-term weight loss after surgery and reduces perioperative complications.? Insurance carriers such as [facility] have endorsed my recommendations ?and have included in their policies criteria to include a 10% preoperative weight loss requirement. PROCEDURE: Esophago-gastroscopy, laparoscopic repair of incarcerated diaphragmatic hernia, laparoscopic lysis of adhesions, laparoscopic sleeve gastrectomy and laparoscopic gastropexy INDICATIONS: This is a 53 year-old female who was electively scheduled for laparoscopic, possibly open sleeve gastrectomy. The risks and complications of the procedure were discussed with the patient in advance, particularly the possibility of ; pulmonary embolism; staple line leak; bleeding; GERD; cardiac, pulmonary, or renal complications; as well as long-term problems such as insufficient weight loss, vitamin deficiency, strictures, or ulcers. The patient understood all the risks, and was in agreement to proceed with surgery. DESCRIPTION OF PROCEDURE: After informed consent was obtained from the patient, the patient was given preoperative antibiotics, and was transferred to the operating room. After successful induction of general anesthesia, pneumatic compression devices were placed on both lower extremities. An upper endoscopy was performed next. The oropharynx and esophagus appeared to be within normal limits. There was no diaphragmatic hernia present consistent with the findings of the preoperative upper GI. The stomach was entered. Then after all fluid and air were suctioned and the stomach was fully decompressed, the scope was withdrawn and secured in the mid esophagus. The patient was then prepped and draped in the usual sterile manner, and abdominal access was established at the right upper quadrant with the Chris technique. A 12 mm blunt port was inserted, and the abdomen was insufflated with CO2 to a pressure of 15 mmHg. Under direct visualization, additional ports were placed, specifically two 5 mm Versi-step ports to the left upper quadrant, and a 5 mm Versi-Step port to the right upper quadrant. 1% lidocaine plain was used to infiltrate all port sites as well as all fascia defects. Following that, the patient was placed in a steep reverse Trendelenburg position. An additional 5 mm port was placed to the right flank for the Mediflex retractor that was used to retract the left lobe of the liver. The gastro-esophageal fat pad was opened with the ultrasonic device (Thunderbeat, Olympus) and the anterior esophagus and hiatus were exposed. The angle of His was opened with the ultrasonic device the fundus of the stomach from any diaphragmatic and splenic attachments. I then opened the gastrocolic ligament between the transverse colon and the greater curvature of the stomach with the ultrasonic device to enter the lesser sac and facilitate the ligation of the short gastric vessels. I started at a mid-point along the greater curvature and using the Thunderbeat, all short gastric vessels were divided all the way to the angle of His until the left fina was completely dissected at its entirety. I then divided the gastro-colic ligament distally to a distance of about 3-4 cm proximal to the pylorus. The stomach was then divided transversely with one Endo CINDY-45 purple and four CINDY-60 articulating purple loads using the Therio stapler and loads. Every effort was made that the gastric sleeve had a tubular shape and an even caliber throughout. Once the sleeve resection was completed, the staple line of the gastric sleeve was reinforced with Hemoclips. The resected stomach was retrieved without difficulty from the Chris port. A gastropexy was then performed in order to prevent postoperative GERD and partial gastric volvulus. Several interrupted 2.0 Surgidac sutures were placed between the sleeve's staple line and the previously divided greater omentum and gastro-colic ligament using the Endo-Stitch device. ?An upper endoscopy was performed. There was no narrowing at the GE junction. The scope was easily advanced all the way to the pylorus which was clearly visualized. There was no narrowing anywhere and the sleeve's caliber was even throughout. The sleeve's staple line was inspected and there was no evidence of ischemia, bleeding or dehiscence. At that point the gastroscope was withdrawn from the patient?s mouth while we were decompressing the bowel and the stomach from any remaining air. I looked into the lesser sac to see how the sleeve was situating and it was situating well. There was no bleeding from the staple line, spleen, or short gas tric vessels. The Mediflex retractor was removed, and the undersurface of the liver was inspected and there was no bleeding. The patient was placed in supine position. I closed the fascial defect of the 12 mm port site with a figure of eight #1 Polysorb suture. Then 30 cc Ropivacaine plain with 10 mg of Dexamethasone were used to infiltrate the fascial closure as well as all skin incisions. At this point, the abdomen was deflated, all ports were removed under direct vision, and no bleeding was noted from any of the port sites. The skin incisions were irrigated with saline and were closed with 4-0 absorbable monofilament sutures. Steri-Strips and OpSites were used to cover all incisions. The patient was extubated and was transferred in stable condition to the recovery room for further care. I was present and performed all lima parts of the procedure. Mr Landa was the first breaker feeder. There were no residents to assist with this case. Dioni Nicholson MD, PhD, FACS Surgeon: Tanner Nicholson MD Anesthesia: GETA, local and other (TAP block) Was an Manager Cancer used for this Procedure?: Yes Manager Cancer: Sincere Landa Estimated blood loss (mL): 10 IV fluids (mL): 2,600 Urine output (mL): 0 (No Gary to record output) Pathology: other (Stomach) Condition: stable Disposition: PACU
[2022-12-06] MEDS: Lactated Ringers 1,000 ML 100 ML IVCONT (00:47)
[2022-12-06 03:03] VITALS: BP 132/75; PULSE 73; RESP 18; TEMP 36.2; O2SAT 97
[2022-12-06] MEDS: HYDROmorphone HCl 0.5 MG/0.5 ML SYRINGE 0.25 MG IVPUSH (03:26)
[2022-12-06 06:15] LABS: MANUAL DIFF FLAG NO
[2022-12-06 06:19] LABS: Basophils Percent Auto 0.2 % (0-2); Hematocrit 37.1 % (37.0-47.0); Hemoglobin 12.6 g/dl (12.0-16.0); Imm Gran Abs Auto 0.03 X10*3/uL (0.00-0.03); Imm Gran Pct Auto 0.3 % (0.0-0.4); Lymphocytes Percent Auto 10.4 % (20-40); Mean Corpuscular Hemoglobin 29.9 pg (27.0-33.0); Mean Corpuscular Volume 87.9 fL (80.0-98.0); Mean Platelet Volume 11.8 fL (9.4-12.3); Monocytes Absolute Auto 0.5 X10*3/uL (0.1-1.2); Monocytes Percent Auto 5.2 % (2-11); Neutrophils Absolute Auto 7.7 x10*3/uL (2.0-8.3); Neutrophils Percent Auto 83.9 % (45-73); Platelet Count 300 X10*3/uL (160-400); Red Blood Count 4.22 X10*6/uL (4.20-5.50); Red Cell Distribution Width 12.5 % (11.0-16.0); White Blood Count 9.2 X10*3/uL (4.8-10.8)
[2022-12-06 06:32] LABS: Anion Gap 14 (12-20); Blood Urea Nitrogen 8 mg/dL (9-16); Calcium 9.2 mg/dL (8.4-10.2); Carbon Dioxide 20 mmol/L (22-29); Chloride 106 mmol/L (96-108); Creatinine Clr Calc Pharmacy 146.5; Estimated Glomerular Filt Rate > 60; Glucose Random 108 mg/dL (60-115); Potassium 4.3 mmol/L (3.3-5.1); Sodium 136 mmol/L (135-145)
[2022-12-06 08:00] VITALS: BP 122/67; PULSE 72; RESP 18; TEMP 36.6; O2SAT 96
[2022-12-06] MEDS: Acetaminophen 1,000 MG/100 ML PIGGYBACK 400 MG IV (08:56)
[2022-12-06] MEDS: Famotidine/PF 20 MG/2 ML VIAL IVPUSH (08:56)
--- NOTE | 2022-12-06 13:45 | HO.POSTANES ---
Post Anesthesia Evaluation Post Anesthesia Evaluation Date of Service: 12/06/22 Vital Signs: Vital Signs Temp Pulse Resp BP Pulse Ox O2 Del Method 12/06/22 08:00 97.9 F 72 18 122/67 96 Room Air 12/06/22 03:03 97.2 F 73 18 132/75 97 Room Air Anesthesia: General Endotracheal-GETA Mental Status: Awake Pain Control: Satisfactory Nausea/Vomiting: None Hydration: Adequate Anesthesia-Related Issues: No Anes. Related Issues
== END 2022-12-06 12:20 | disposition home or self-care (01) | DRG 621 ==
LOC: HO.SSSA 13:58 → HO.S3 14:03
PROVIDERS: Nurse Practitioner; Physician Assistant Surgical; Admitting Provider Surgery; PCP Internal Medicine; Visit Provider Surgery
PROC: 0DB64Z3 Excision of Stomach, Percutaneous Endoscopic Approach, Vertical (ICD-10-PCS; CPT 43845; principal; 2022-12-05 11:00)
DX: E66.01 Morbid (severe) obesity due to excess calories (principal); K76.0 Fatty (change of) liver, not elsewhere classified; K74.00 Hepatic fibrosis, unspecified; Z20.822 Contact with and (suspected) exposure to COVID-19; Z68.38 Body mass index [BMI] 38.0-38.9, adult; Z87.442 Personal history of urinary calculi; Z79.899 Other long term (current) drug therapy
CPT/HCPCS: 36415; 80048; 80053; 80061; 81025; 83036; 83525; 84443; 85014; 85018; 85025; 85610; 85730; 86140; 86850; 86900; 86901; 87635; 88304; 88305; 88307; 88342; A4649; C9088; C9145; J0131; J0690; J1100; J1170; J2250; J2405; J2795; J3010

== ENCOUNTER → 2022-12-11 13:31 | Outpatient (BNVA) | payer OTHER, SELFPAY | PROVIDERS: PCP Internal Medicine; Visit Provider Physician Assistant Surgical ==

== ENCOUNTER → 2022-12-17 09:26 | Outpatient (BNVA) | payer OTHER, SELFPAY | PROVIDERS: PCP Internal Medicine; Visit Provider Physician Assistant Surgical ==

== ENCOUNTER 2022-12-30 09:53 | Outpatient (AMB) | payer OTHER, SELFPAY ==
--- NOTE | 2022-12-30 09:57 | A.OFFVIS_ITS ---
Intake VS Expanded 12/30/22 10:00 Height 5 ft 3 in Weight 199 lb 3.2 oz BMI 35.3 BP 117/55 L Blood Pressure Location Rt brachial Blood Pressure Position Sitting Pulse 93 Pulse Source Pulse Oximeter Temp 97.8 F Temperature Source Temporal Artery Scan Pulse Oximetry 97 Oxygen Delivery Method Room Air Body Fat 90.6 Body Fat Percentage 45.5 Free Fat Mass 108.4 Muscle Mass 103.0 Visceral Mass 9.0 Water Mass 78.0 BMR 1,563 Intake Visit Reasons: (OV) PO LSG 12/05/22 Variety Saw Operator Required: No Allergies No Known Allergies Allergy (Verified 12/30/22 09:59) Medication List - Last Reconciled 12/30/22 by J CARLOS Elkins pantoprazole 40 mg PO DAILY sucralfate 10 mL PO BID HPI HPI Comments History of Present Illness Details This?a?32?yo female who is s/p LSG without hiatal hernia repair on?12/02/22. Presents for 1 month post op visit. Weight today is 199.2 pounds, with a BMI of 35.3. There has been a 38.8 pound weight loss,(initial weight 238 pounds) since starting the program on 10/20/22 reflecting a 16.3% total body weight loss and a weight loss of 17.5 pounds since surgery (operative weight 216.7 pounds) reflecting a 8% TBWL since surgery. Complaints of nausea and vomiting with MVI that she was taking on an empty stomach. Reports infrequent but normal bowel movements every 1-2 days and uses stool softeners regularly. She developed a post op rash from the abdominal binder requiring a visit to [facility] and topical benadryl with resolution. She states she could no longer tolerate Celebrate shakes and was changed to Orgain which she is tolerating better, taking celebrate MVI Present meal plan includes: Orgain shakes 8-1030 2 scoops 1140-2 2 scoops ZP bar 4-7, 7-10 Drinking 24 oz water daily ? Exercise routine includes: walking daily, 30 min 200 calories per her watch, [facility] Medical History BMI 38.0-38.9,adult BMI 39.0-39.9,adult Encounter for general adult medical examination with abnormal findings History of kidney stones Manic depression Morbid obesity due to excess calories PTSD (post-traumatic stress disorder) Viral illness Surgical History History of lithotripsy S/P laparoscopic sleeve gastrectomy Family History Sister Substance use disorder Mental health disorder Brother Substance use disorder Mental health disorder Mother Substance use disorder Mental health disorder Father Substance use disorder Mental health disorder Other Patient unsure of family history Social History Household Members: None Household Members Other:: Parents Housing: Apartment Are you a primary congregational care pastor to a significant other at home: No Do you presently have visiting nurse or other home services: No Patient Tobacco Use Status: Never used Tobacco e-Cigarette/Vaping Use: Currently Using (less than monthly ) Substance Use Type: Marijuana service: No Current occupational status: employed Cognitive needs: No Hearing needs: No Vision needs: No Physical Exam Vital Signs: Last Vital Signs Temp 97.8 F 12/30/22 10:00 Pulse 93 12/30/22 10:00 BP 117/55 L 12/30/22 10:00 Pulse Ox 97 12/30/22 10:00 Oxygen Delivery Method Room Air 12/30/22 10:00 BMI result Body Mass Index 35.3 GI Inspection: Yes incision (c/d/i) Skin Other: rtesolved dermatitis Assessment & Plan Assessment & Plan (1) S/P laparoscopic sleeve gastrectomy: Code(s): Z98.84 - Bariatric surgery status Plan: Continue shakes/bars Try to increase free water MVI w shake or sprinkled into shake rtc 1 month increase exercise Coding Level of Care Code Global (53510) Diagnoses S/P laparoscopic sleeve gastrectomy Z98.84
[2022-12-30 10:00] VITALS: BP 117/55; PULSE 93; TEMP 36.6; O2SAT 97; BMI 35.3
== END 2022-12-30 10:35 | disposition home or self-care (01) ==
PROVIDERS: PCP Internal Medicine; Visit Provider Physician Assistant Surgical
DX: Z98.84 Bariatric surgery status (principal)
CPT/HCPCS: 99024

== ENCOUNTER → 2022-12-30 09:53 | Outpatient (BNVA) | payer OTHER, SELFPAY | PROVIDERS: PCP Internal Medicine; Visit Provider Physician Assistant Surgical ==

== ENCOUNTER 2023-01-28 09:59 | Outpatient (AMB) | payer OTHER, SELFPAY ==
[2023-01-28 10:04] VITALS: BP 120/62; PULSE 90; O2SAT 99; BMI 33.9
--- NOTE | 2023-01-28 10:04 | A.OFFPC_ITS ---
Vital Signs 01/28/23 10:04 Height 5 ft 3 in Weight 191 lb 4 oz BMI 33.9 BP 120/62 Blood Pressure Location Rt brachial Position Sitting Pulse 90 Pulse Source Pulse Oximeter Pulse Oximetry (%) 99 Oxygen Delivery Method Room Air Intake Visit Reasons: f/u after weight loss surgery Allergies No Known Allergies Allergy (Verified 01/28/23 10:05) Tobacco use date assessed: 01/28/23 Dental Screening Dental Screen Date: 01/28/23 Did you have a dental visit in the last 12 months?: Yes Did you have a dental problem in the last 6 months where you did not have access to dental care?: No Was dental information given to patient?: No HPI f/u after weight loss surgery HPI Details Patient had bariatric surgery few weeks ago she has already losing weight her weight was 199 last month and it is 191 now She is doing well has tolerated surgery Has no complications so far. Patient was complaining of sleep point of sutures taking out of 1 of her incisions Side Even though incision sites are healed well. With the help of forceps and scissor small piece of suture was removed that was taking out. Without any complications or bleeding [facility] Medical History BMI 38.0-38.9,adult BMI 39.0-39.9,adult Encounter for general adult medical examination with abnormal findings History of kidney stones Manic depression Morbid obesity due to excess calories PTSD (post-traumatic stress disorder) Viral illness Surgical History History of lithotripsy S/P laparoscopic sleeve gastrectomy Family History Sister Substance use disorder Mental health disorder Brother Substance use disorder Mental health disorder Mother Substance use disorder Mental health disorder Father Substance use disorder Mental health disorder Other Patient unsure of family history Social History Household Members: None Household Members Other:: Parents Housing: Apartment Are you a primary healthcare applications analyst to a significant other at home: No Do you presently have visiting nurse or other home services: No Patient Tobacco Use Status: Never used Tobacco e-Cigarette/Vaping Use: Currently Using (less than monthly ) Substance Use Type: Marijuana service: No Current occupational status: employed Cognitive needs: No Hearing needs: No Vision needs: Yes Questionnaire PHQ-9 Over the last 2 weeks, how often have you been bothered by any of the following problems? 1. Little interest or pleasure in doing things: not at all 2. Feeling down, depressed, or hopeless: several days 3. Trouble falling or staying asleep, or sleeping too much: several days 4. Feeling tired or having little energy: several days 5. Poor appetite or overeating: not at all 6. Feeling bad about yourself - or that you are a failure or have let yourself or your family down: not at all 7. Trouble concentrating on things, such as reading the newspaper or watching television: not at all 8. Moving or speaking so slowly that other people could have noticed. Or the opposite - being so fidgety or restless that you have been moving around a lot more than usual: not at all 9. Thoughts that you would be better off or of hurting yourself in some way: not at all Total score: 3 Depression Screening Interpretation: Negative 80547 - PHQ-9 Billing: Yes Source: Developed by Drs. Nilesh Lea, Miladis Vazquez, Junior Garcia and colleagues, with an educational roderick from [employer]. Thrive Questionnaire Date Thrive assessed: 01/28/23 I am a: Patient What is your living situation today?: I have a steady place to live Within the past 12 months, did the food you bought not last and you didn't have the money to get more?: Never true Within the past 12 months, did you worry whether your food would run out before you got money to buy more?: Never true Do you have trouble paying for medicines?: No Do you have trouble getting transportation to medical appointments?: No Do you have trouble paying your heating and electricity bill?: Yes Do you have trouble taking care of your child, family member or friend?: No Do you have trouble with day-to-day activities such as bathing, preparing meals, shopping, managing finances, etc.?: No Are you currently unemployed and looking for a job?: No Are you interested in more education?: No AUDIT C Alcohol Use Questionnaire (AUDIT-C) 1. How often do you have a drink containing alcohol?: Never 3. How often do you have six or more drinks on one occasion?: Never Total Score: 0 Score Reviewed/Action Taken: Yes MARCY-7 AMB Questionnaire MARCY-7 Date MARCY - 7 assessed: 01/28/23 Feeling nervous, anxious, or on edge: 2 = More than half the days Not being able to stop or control worryin = More than half the days Worrying too much about different things: 2 = More than half the days Trouble relaxin = More than half the days Being so restless that it is hard to sit still: 1 = Several days Becoming easily annoyed or irritable: 1 = Several days Feeling afraid as if something awful might happen: 2 = More than half the days Total MARCY-7 score (0-4 normal; 5-9 mild; 10-14 moderate; 15-21 severe): 12 Source: Developed by Drs. Nilesh Lea, Miladis Vazquez, Junior Garcia and colleagues, with an educational roderick from [employer]. MARCY-7 Assessment Billing MARCY-7 Assessment Tool: MARCY-7 Assessment 02640 Review of Systems Const Denies chills and Denies fever(s) ENT Denies epistaxis and Denies nasal discharge Card Denies chest pain Resp Denies chest congestion, Denies cough and Denies hemoptysis GI Denies diarrhea and Denies nausea Skin/Breast Denies rash Neuro Reports no additional complaints Psych Reports no additional complaints Endo Reports no additional complaints Physical exam (Primary Care) Vital Signs: Last Vital Signs Pulse 90 01/28/23 10:04 BP 120/62 01/28/23 10:04 Pulse Ox 99 01/28/23 10:04 Oxygen Delivery Method Room Air 01/28/23 10:04 BMI result Body Mass Index 33.9 Tobacco/Smoking Status: Tobacco use Status Tobacco use date assessed 01/28/23 01/28/23 10:06 Patient Tobacco Use Status Never used Tobacco 01/28/23 10:06 e-Cigarette/Vaping Use Currently Using (less than 01/28/23 10:06 monthly ) PHQ-9: PHQ-9 Score PHQ-9: Total score 3 01/28/23 10:21 Depression Screening Interpretation: Negative Thrive Assessment: Date of Thrive Assessment Date Thrive assessed 01/28/23 01/28/23 10:21 Const General: cooperative, comfortable and no acute distress Orientation/consciousness: patient oriented x3 HENMT Head: Yes normocephalic Eyes General: appearance normal, both eyes and all related structures Neck Neck: Yes supple Resp Effort & Inspection: normal respiratory effort, no cough and no stridor Cardio Rhythm: regular rhythm Heart sounds: S1 normal heart sound present and S2 normal heart sound present GI Abdomen image: 1. Healed incision site 2. Small amount of suture and removed Skin General skin exam: turgor normal Neuro General: patient oriented x3, tone normal and moves all extremities Extrem Right lower extremity: no edema Left lower extremity: no edema Assessment and Plan Assessment & Plan (1) S/P laparoscopic sleeve gastrectomy: Code(s): Z98.84 - Bariatric surgery status (2) Encounter for removal of sutures: Code(s): Z48.02 - Encounter for removal of sutures Plan Patient had bariatric surgery few weeks ago she has already losing weight her weight was 199 last month and it is 191 now She is doing well has tolerated surgery Has no complications so far. Patient was complaining of sleep point of sutures taking out of 1 of her incisions Side Even though incision sites are healed well. With the help of forceps and scissor small piece of suture was removed that was taking out. Without any complications or bleeding Coding Level of Care Code Est Pt Level 3 (87565) Diagnoses S/P laparoscopic sleeve gastrectomy Z98.84 Encounter for removal of sutures Z48.02 Additional Codes MARCY-7 Assessment Billing - MARCY-7 Assessment Tool: MARCY-7 Assessment [id number] ([id number])
== END 2023-01-28 10:19 | disposition home or self-care (01) ==
PROVIDERS: PCP Internal Medicine; Visit Provider Internal Medicine
DX: Z98.84 Bariatric surgery status (principal); Z48.02 Encounter for removal of sutures
CPT/HCPCS: 99213

== ENCOUNTER 2023-02-03 08:58 | Outpatient (AMB) | payer OTHER, SELFPAY ==
--- NOTE | 2023-02-03 09:03 | A.OFFVIS_ITS ---
Intake VS Expanded 02/03/23 09:06 Height 5 ft 3 in Weight 185 lb 6.4 oz BMI 32.8 BP 113/59 L Blood Pressure Location Rt brachial Blood Pressure Position Sitting Pulse 74 Pulse Source Pulse Oximeter Temp 98.7 F Temperature Source Temporal Artery Scan Pulse Oximetry 95 Oxygen Delivery Method Room Air Body Fat 79.2 Body Fat Percentage 42.7 Free Fat Mass 106.0 Muscle Mass 100.8 Visceral Mass 8.0 Water Mass 76.2 BMR 1,514 Intake Visit Reasons: (OV) PO LSG 12/05/22 [employer] Tube Bender Required: No Allergies No Known Allergies Allergy (Verified 02/03/23 09:05) Medication List - Last Reconciled 02/03/23 by J CARLOS Elkins [celebrate MVI PO DAILY] pantoprazole 40 mg PO DAILY sucralfate 10 mL PO BID HPI HPI Comments History of Present Illness Details This?a?32?yo female who is s/p LSG without hiatal hernia repair on?12/02/22. Presents for 2 month post op visit. Weight today is 185.4 pounds, with a BMI of 32.8.? There has been a 52.6 pound weight loss,(initial weight 238 pounds) since starting the program on 10/20/22 reflecting a 22.1% total body weight loss and a weight loss of 31.3 pounds since surgery (operative weight 216.7 pounds) reflecting a 14.4% TBWL since surgery.? Complaints of nausea and vomiting with MVI that she was taking on an empty stomach. Reports infrequent but normal bowel movements every 1-2 days and uses stool softeners regularly.? She states she is doing very well and tolerating Orgain shakes, taking celebrate MVI. Overall satisfied with meal plan Present meal plan includes: Orgain shakes 8-1030 1 scoop 630 pm meal 4 forks protein 4 forks veg ZP bar 10-12, 130-330 Drinking 40 oz water daily ? Exercise routine includes: walking daily, 1 hour, 2 miles, 250 calories, then gym 1/2 hour treadmill speed 3 incline 10, 425-450 dulce 3 days per week. yoga 2-3 times per week PFSH Medical History BMI 38.0-38.9,adult BMI 39.0-39.9,adult Encounter for general adult medical examination with abnormal findings History of kidney stones Manic depression Morbid obesity due to excess calories PTSD (post-traumatic stress disorder) Viral illness Surgical History History of lithotripsy S/P laparoscopic sleeve gastrectomy Family History Sister Substance use disorder Mental health disorder Brother Substance use disorder Mental health disorder Mother Substance use disorder Mental health disorder Father Substance use disorder Mental health disorder Other Patient unsure of family history Social History Household Members: None Household Members Other:: Parents Housing: Apartment Are you a primary palliative care specialist to a significant other at home: No Do you presently have visiting nurse or other home services: No Patient Tobacco Use Status: Never used Tobacco e-Cigarette/Vaping Use: Currently Using (less than monthly ) Substance Use Type: Marijuana service: No Current occupational status: employed Cognitive needs: No Hearing needs: No Vision needs: Yes Physical Exam Vital Signs: Last Vital Signs Temp 98.7 F 02/03/23 09:06 Pulse 74 02/03/23 09:06 BP 113/59 L 02/03/23 09:06 Pulse Ox 95 02/03/23 09:06 Oxygen Delivery Method Room Air 02/03/23 09:06 BMI result Body Mass Index 32.8 Const General: healthy appearing and no acute distress Resp Effort & Inspection: normal respiratory effort Auscultation: clear to auscultation bilaterally Cardio Rate: regular rate Rhythm: regular rhythm GI Auscultation: normal bowel sounds Extrem General: Yes normal to inspection Assessment & Plan Assessment & Plan (1) Obesity: Code(s): E66.9 - Obesity, unspecified Plan: Making great progress and doesn't want to change anything at this time. Continue to track calories Try to increase water to 48 oz daily Continue MVI and rtc month Coding Level of Care Code Global (58217) Diagnoses Obesity E66.9
[2023-02-03 09:06] VITALS: BP 113/59; PULSE 74; TEMP 37.1; O2SAT 95; BMI 32.8
== END 2023-02-03 09:31 | disposition home or self-care (01) ==
PROVIDERS: PCP Internal Medicine; Visit Provider Physician Assistant Surgical
DX: E66.9 Obesity, unspecified (principal)
CPT/HCPCS: 99024

== ENCOUNTER → 2023-02-03 08:58 | Outpatient (BNVA) | payer OTHER, SELFPAY | PROVIDERS: PCP Internal Medicine; Visit Provider Physician Assistant Surgical ==

== ENCOUNTER 2023-03-09 09:24 | Outpatient (AMB) | payer OTHER, SELFPAY ==
--- NOTE | 2023-03-09 09:34 | MHC.OFFVISWM ---
Intake VS Expanded 03/09/23 09:37 Height 5 ft 3 in Weight 172 lb 12.8 oz BMI 30.6 BP 111/61 Blood Pressure Location Rt brachial Blood Pressure Position Sitting Pulse 74 Pulse Source Pulse Oximeter Temp 97.8 F Temperature Source Temporal Artery Scan Pulse Oximetry 97 Oxygen Delivery Method Room Air Body Fat 69.0 Body Fat Percentage 40.0 Free Fat Mass 103.6 Muscle Mass 98.4 Visceral Mass 7.0 Water Mass 74.6 BMR 1,468 Intake Visit Reasons: (OV) PO LSG 12/05/22 Allergies No Known Allergies Allergy (Verified 03/09/23 09:40) HPI HPI Comments History of Present Illness Details This?a?32?yo female who is s/p LSG without hiatal hernia repair on?12/02/22. Presents for 3 month post op visit. Weight today is 172.8 pounds, with a BMI of 30.6.? There has been a 65.2 pound weight loss,(initial weight 238 pounds) since starting the program on 10/20/22 reflecting a 27.3% total body weight loss and a weight loss of 43.9 pounds since surgery (operative weight 216.7 pounds) reflecting a 20.2% TBWL since surgery.? Reports infrequent but normal bowel movements every 1-2 days and uses stool softeners regularly.? She states she is doing very well and tolerating Orgain shakes, taking celebrate MVI and dulce + D. MVI at night. Reports easy bruisability and feeling cold. Requests labs Present meal plan includes: Orgain shakes 8-1030 1 scoop 630 pm meal 4 forks protein 4 forks veg ZP bar 10-12, 130-330 protein chips Drinking 40 oz water daily ? Exercise routine includes: walking daily, 1 hour, 2 miles, 250 calories, then gym 1/2 hour treadmill speed 3 incline 10, 425-450 dulce 3 days per week. yoga 2-3 times per week [facility] Medical History BMI 38.0-38.9,adult BMI 39.0-39.9,adult Viral illness Encounter for general adult medical examination with abnormal findings Morbid obesity due to excess calories PTSD (post-traumatic stress disorder) Manic depression History of kidney stones Surgical History S/P laparoscopic sleeve gastrectomy History of lithotripsy Family History Sister Substance use disorder Mental health disorder Brother Substance use disorder Mental health disorder Mother Substance use disorder Mental health disorder Father Substance use disorder Mental health disorder Other Patient unsure of family history Social History Household Members: None Household Members Other:: Parents Housing: Apartment Are you a primary long term care administrator to a significant other at home: No Do you presently have visiting nurse or other home services: No Patient Tobacco Use Status: Never used Tobacco e-Cigarette/Vaping Use: Currently Using (less than monthly ) Substance Use Type: Marijuana service: No Current occupational status: employed Cognitive needs: No Hearing needs: No Vision needs: Yes Physical Exam Const General: healthy appearing and no acute distress Resp Effort & Inspection: normal respiratory effort Auscultation: clear to auscultation bilaterally Cardio Rate: regular rate Rhythm: regular rhythm GI Auscultation: normal bowel sounds Extrem General: Yes normal to inspection Assessment & Plan Assessment & Plan (1) Obesity: Code(s): E66.9 - Obesity, unspecified Qualifiers: Obesity classification: adult class 1 (BMI 30 - 34.9) Serious obesity comorbidity presence: without serious comorbidity Body mass index: BMI 30.0-30.9 Plan: wants to possibly incorporate ghost whey protein powder (25 gm/2 scoops). October sub 1 scoop in AM Continue other aspects of meal plan Continue exercise, making great progress rtc 6 weeks (2) Easy bruisability: Code(s): R23.3 - Spontaneous ecchymoses Plan: check cbc, vitamin levels and iron Orders: Orders Complete Blood Count Auto Diff Today E50.9 - Vitamin A deficiency, unspecified, E51.9 - Thiamine deficiency, unspecified, E53.8 - Deficiency of other specified B group vitamins, E55.9 - Vitamin D deficiency, unspecified, E66.9 - Obesity, unspecified, Z98.84 - Bariatric surgery status Zinc Today E50.9 - Vitamin A deficiency, unspecified, E51.9 - Thiamine deficiency, unspecified, E53.8 - Deficiency of other specified B group vitamins, E55.9 - Vitamin D deficiency, unspecified, E66.9 - Obesity, unspecified, Z98.84 - Bariatric surgery status Vitamin B1 Today E50.9 - Vitamin A deficiency, unspecified, E51.9 - Thiamine deficiency, unspecified, E53.8 - Deficiency of other specified B group vitamins, E55.9 - Vitamin D deficiency, unspecified, E66.9 - Obesity, unspecified, Z98.84 - Bariatric surgery status PTHI Today E50.9 - Vitamin A deficiency, unspecified, E51.9 - Thiamine deficiency, unspecified, E53.8 - Deficiency of other specified B group vitamins, E55.9 - Vitamin D deficiency, unspecified, E66.9 - Obesity, unspecified, Z98.84 - Bariatric surgery status TSH reflex Free T4 Today E50.9 - Vitamin A deficiency, unspecified, E51.9 - Thiamine deficiency, unspecified, E53.8 - Deficiency of other specified B group vitamins, E55.9 - Vitamin D deficiency, unspecified, E66.9 - Obesity, unspecified, Z98.84 - Bariatric surgery status IRON PROFILE Today E50.9 - Vitamin A deficiency, unspecified, E51.9 - Thiamine deficiency, unspecified, E53.8 - Deficiency of other specified B group vitamins, E55.9 - Vitamin D deficiency, unspecified, E66.9 - Obesity, unspecified, Z98.84 - Bariatric surgery status Vitamin B12 and Folate Today E50.9 - Vitamin A deficiency, unspecified, E51.9 - Thiamine deficiency, unspecified, E53.8 - Deficiency of other specified B group vitamins, E55.9 - Vitamin D deficiency, unspecified, E66.9 - Obesity, unspecified, Z98.84 - Bariatric surgery status Vitamin A Today E50.9 - Vitamin A deficiency, unspecified, E51.9 - Thiamine deficiency, unspecified, E53.8 - Deficiency of other specified B group vitamins, E55.9 - Vitamin D deficiency, unspecified, E66.9 - Obesity, unspecified, Z98.84 - Bariatric surgery status Ferritin Today E50.9 - Vitamin A deficiency, unspecified, E51.9 - Thiamine deficiency, unspecified, E53.8 - Deficiency of other specified B group vitamins, E55.9 - Vitamin D deficiency, unspecified, E66.9 - Obesity, unspecified, Z98.84 - Bariatric surgery status Vitamin D 25-OH Total Today E50.9 - Vitamin A deficiency, unspecified, E51.9 - Thiamine deficiency, unspecified, E53.8 - Deficiency of other specified B group vitamins, E55.9 - Vitamin D deficiency, unspecified, E66.9 - Obesity, unspecified, Z98.84 - Bariatric surgery status Basic Metabolic Panel Today E50.9 - Vitamin A deficiency, unspecified, E51.9 - Thiamine deficiency, unspecified, E53.8 - Deficiency of other specified B group vitamins, E55.9 - Vitamin D deficiency, unspecified, E66.9 - Obesity, unspecified, Z98.84 - Bariatric surgery status Coding Level of Care Code Est Pt Level 4 (15038) Diagnoses Obesity E66.9 Obesity classification: adult class 1 (BMI 30 - 34.9) Serious obesity comorbidity presence: without serious comorbidity Body mass index: BMI 30.0-30.9 Easy bruisability R23.3 Time Spent (min) 40
[2023-03-09 09:37] VITALS: BP 111/61; PULSE 74; TEMP 36.6; O2SAT 97; BMI 30.6
== END 2023-03-09 10:07 | disposition home or self-care (01) ==
PROVIDERS: PCP Internal Medicine; Visit Provider Physician Assistant Surgical
DX: E66.9 Obesity, unspecified (principal); R23.3 Spontaneous ecchymoses
CPT/HCPCS: 99214

== ENCOUNTER 2023-03-09 09:24 | Outpatient (REF) | payer OTHER, SELFPAY ==
[2023-03-09 10:35] LABS: MANUAL DIFF FLAG NO
[2023-03-09 11:07] LABS: Basophils Percent Auto 0.4 % (0-2); Eosinophils Absolute Auto 0.1 X10*3/uL (0.0-0.4); Eosinophils Percent Auto 1.1 % (0-4); Hematocrit 40.3 % (37.0-47.0); Hemoglobin 12.9 g/dl (12.0-16.0); Imm Gran Abs Auto 0.01 X10*3/uL (0.00-0.03); Imm Gran Pct Auto 0.2 % (0.0-0.4); Lymphocytes Absolute Auto 1.3 X10*3/uL (1.2-4.9); Mean Corpuscular Hemoglobin 29.6 pg (27.0-33.0); Mean Corpuscular Volume 92.4 fL (80.0-98.0); Mean Platelet Volume 12.5 fL (9.4-12.3); Monocytes Absolute Auto 0.4 X10*3/uL (0.1-1.2); Monocytes Percent Auto 7.5 % (2-11); Neutrophils Absolute Auto 3.7 x10*3/uL (2.0-8.3); Neutrophils Percent Auto 66.8 % (45-73); Platelet Count 275 X10*3/uL (160-400); Red Blood Count 4.36 X10*6/uL (4.20-5.50); White Blood Count 5.5 X10*3/uL (4.8-10.8)
[2023-03-09 11:36] LABS: Anion Gap 17 (12-20); Blood Urea Nitrogen 12 mg/dL (9-16); Calcium 9.8 mg/dL (8.4-10.2); Carbon Dioxide 23 mmol/L (22-29); Chloride 106 mmol/L (96-108); Estimated Glomerular Filt Rate > 60; Glucose Random 82 mg/dL (60-115); Iron 47 mcg/dL (30-160); Percent Iron Saturation 21 % (15-50); Sodium 142 mmol/L (135-145); Total Iron Binding Capacity 226 mcg/dL (228-428); Unsaturated Iron Binding 179 ug/dL
[2023-03-09 11:55] LABS: Ferritin 135 ng/mL (10-122); TSH reflex Free T4 1.32 uIU/mL (0.32-4.0)
[2023-03-09 12:03] LABS: Folate 16.7 ng/mL (> or = 4.0); Vitamin B12 1333 pg/mL (200-900)
[2023-03-10 15:18] LABS: Calcium (PTHI) 9.7 mg/dL (8.6-10.2); PTHI 34 pg/mL (16-77)
[2023-03-12 22:22] LABS: Zinc 81 mcg/dL (60-130)
[2023-03-13 17:23] LABS: Vitamin B1 14 nmol/L (8-30)
[2023-03-14 17:38] LABS: Vitamin A 26 mcg/dL (38-98)
== END 2023-03-09 09:25 | disposition home or self-care (01) ==
LOC: HO.LAB 09:24
PROVIDERS: PCP Internal Medicine; Visit Provider Physician Assistant Surgical
DX: Z98.84 Bariatric surgery status (principal); E66.9 Obesity, unspecified; E51.9 Thiamine deficiency, unspecified; E50.9 Vitamin A deficiency, unspecified; E53.8 Deficiency of other specified B group vitamins; E55.9 Vitamin D deficiency, unspecified
CPT/HCPCS: 36415; 80048; 82306; 82607; 82728; 82746; 83540; 83970; 84425; 84443; 84590; 84630; 85025

== ENCOUNTER 2023-07-20 08:54 | Outpatient (AMB) | payer OTHER, SELFPAY ==
--- NOTE | 2023-07-20 09:00 | MHC.OFFVISWM ---
Intake VS Expanded 07/20/23 09:10 BP 115/72 Blood Pressure Location Rt brachial Blood Pressure Position Sitting Pulse 61 Pulse Source Pulse Oximeter Temp 96.3 F L Temperature Source Temporal Artery Scan Pulse Oximetry 98 Oxygen Delivery Method Room Air Height 5 ft 3 in Weight 136 lb 12.8 oz BMI 24.2 Body Fat % 27.6 Body Fat Mass 37.6 Fat Free Mass 99.0 Visceral Fat Rating 3.0 Body Water % 51.9 Body Water Mass 71.0 Muscle Mass/Score 94.0 Basal Metabolic Rate/Score 1,360 Intake Visit Reasons: (OV) PO LSG 12/05/22 Program Architect Required: No Allergies No Known Allergies Allergy (Verified 07/20/23 09:13) Medication List - Last Reconciled 07/20/23 by J CARLOS Elkins [celebrate MVI PO DAILY] HPI HPI Comments History of Present Illness Details This?a?32?yo femal e who is s/p LSG w ithout hiatal soledad ia repair on?. Presents for 7 month post op vis it. Weight today i s 136.8 pounds, wi th a BMI of 24.2.? There has been a 101.2 pound weight loss,(initial maribell ght 238 pounds) si nce starting the p rogram on 10/20/22 r eflecting a 42.5% total body weight loss and a weight loss of 79.9 pound s since surgery (o perative weight 21 6.7 pounds) reflec ting a 36.8% TBWL since surgery.? Re ports infrequent b ut normal bowel mo vements every 1-2 days and uses stoo l softeners regula rly.? She states she is doing very well and toleratin g Orgain shakes, t aking celebrate MV I and dulce + D. MV I at night. Repor ts continued inter mittent easy bruis ability. She is f requently cold and denies any trauma or change in her menstrual cycle, n o fam hx of bruisi ng. She also repo rts a significant breast asymmetry. Since surgery, sh e has lost 101.2 l b and has since no ticed a significan t breast asymmetry with the right br east being a cup s ize or more differ ent than the left. The left is sign ificantly smaller than the right sushant ast. She states t hat prior to her s ignificant weight loss, her breasts were symmetrical. Present meal p kostas includes: Org ain shakes 8-1030 1 scoop ZP bar 10 -12, 130-330 630 pm meal 4 forks pr otein 4 forks veg protein chips Dri nking 64 oz water daily ? Exercise routine includes: walking daily, 1 hour, 2 miles, 250 calories, then gy m 1/2 hour treadmi ll speed 3 incline 10, 425-450 dulce 2 days per week. yoga 2-3 times per week Any pos t op complications : none ROME: never DM: never HTN: nev er Hyperlipidemia: never GERD:?0-5 scale ??0 = no symptoms ??1 = symptoms noticea ble but not bother some 2 =symptoms bothersome but not daily ? 3 = sympt oms bothersome and daily 4 = symp toms affect daily activities 5 = sy mptoms are incapac itating, unable to do daily activiti es ? How bad is the heartburn: 0 ? Heartburn while l elsie down: 0 ? Hea rtburn when standi ng up: 0 ? Heartbu rn after meals: 0 ? Does heartburn c hange your diet: 0 ? Does heartburn wake you up from s leep: 0 ? Do you h ave difficulty swa llowin ? Do yo u have pain with s wallowin ? If you take medicine for your reflux, d oes this affect yo ur daily life: 0 Satisfaction with present condition - satisfied or not satisfied: carlie waddell [facility] Medical History BMI 38.0-38.9,adult BMI 39.0-39.9,adult Viral illness Encounter for general adult medical examination with abnormal findings Morbid obesity due to excess calories PTSD (post-traumatic stress disorder) Manic depression History of kidney stones Surgical History S/P laparoscopic sleeve gastrectomy History of lithotripsy Family History Sister Substance use disorder Mental health disorder Brother Substance use disorder Mental health disorder Mother Substance use disorder Mental health disorder Father Substance use disorder Mental health disorder Other Patient unsure of family history Social History Household Members: None Household Members Other:: Parents Housing: Apartment Are you a primary pharmacy care coordinator to a significant other at home: No Do you presently have visiting nurse or other home services: No Patient Tobacco Use Status: Never used Tobacco e-Cigarette/Vaping Use: Currently Using (less than monthly ) Substance Use Type: Marijuana service: No Current occupational status: employed Cognitive needs: No Hearing needs: No Vision needs: Yes Physical Exam Chest Other: Breast/axilla inspection: abnormal inspection of the breast (Significant asymmetry, right larger than left by almost 2.) and Other Assessment & Plan Assessment & Plan (1) S/P laparoscopic sleeve gastrectomy: Code(s): Z98.84 - Bariatric surgery status Plan: Check six-month labs. Continue current meal plan per her request. Continue exercise routine. Regarding the easy bruisability, unclear etiology. TSH, CBC and standard six-month postop labs will be ordered. She may need a referral to hematology. (2) Breast asymmetry: Code(s): N64.89 - Other specified disorders of breast Plan: Will discuss with Dr. Nicholson regarding possible breast surgery. It was discussed with the patient that if he is unable to provide this service, we will refer her to another area surgeon. Pictures were taken for medical documentation. Orders: Orders Insulin Today E50.9 - Vitamin A deficiency, unspecified, E51.9 - Thiamine deficiency, unspecified, E53.8 - Deficiency of other specified B group vitamins, E55.9 - Vitamin D deficiency, unspecified, R23.3 - Spontaneous ecchymoses, Z98.84 - Bariatric surgery status Hemoglobin A1c Today E50.9 - Vitamin A deficiency, unspecified, E51.9 - Thiamine deficiency, unspecified, E53.8 - Deficiency of other specified B group vitamins, E55.9 - Vitamin D deficiency, unspecified, R23.3 - Spontaneous ecchymoses, Z98.84 - Bariatric surgery status Complete Blood Count Auto Diff Today E50.9 - Vitamin A deficiency, unspecified, E51.9 - Thiamine deficiency, unspecified, E53.8 - Deficiency of other specified B group vitamins, E55.9 - Vitamin D deficiency, unspecified, R23.3 - Spontaneous ecchymoses, Z98.84 - Bariatric surgery status Lipid Panel Today E50.9 - Vitamin A deficiency, unspecified, E51.9 - Thiamine deficiency, unspecified, E53.8 - Deficiency of other specified B group vitamins, E55.9 - Vitamin D deficiency, unspecified, R23.3 - Spontaneous ecchymoses, Z98.84 - Bariatric surgery status IRON PROFILE Today E50.9 - Vitamin A deficiency, unspecified, E51.9 - Thiamine deficiency, unspecified, E53.8 - Deficiency of other specified B group vitamins, E55.9 - Vitamin D deficiency, unspecified, R23.3 - Spontaneous ecchymoses, Z98.84 - Bariatric surgery status Zinc Today E50.9 - Vitamin A deficiency, unspecified, E51.9 - Thiamine deficiency, unspecified, E53.8 - Deficiency of other specified B group vitamins, E55.9 - Vitamin D deficiency, unspecified, R23.3 - Spontaneous ecchymoses, Z98.84 - Bariatric surgery status TSH reflex Free T4 Today E50.9 - Vitamin A deficiency, unspecified, E51.9 - Thiamine deficiency, unspecified, E53.8 - Deficiency of other specified B group vitamins, E55.9 - Vitamin D deficiency, unspecified, R23.3 - Spontaneous ecchymoses, Z98.84 - Bariatric surgery status Basic Metabolic Panel Today E50.9 - Vitamin A deficiency, unspecified, E51.9 - Thiamine deficiency, unspecified, E53.8 - Deficiency of other specified B group vitamins, E55.9 - Vitamin D deficiency, unspecified, R23.3 - Spontaneous ecchymoses, Z98.84 - Bariatric surgery status Vitamin B12 and Folate Today E50.9 - Vitamin A deficiency, unspecified, E51.9 - Thiamine deficiency, unspecified, E53.8 - Deficiency of other specified B group vitamins, E55.9 - Vitamin D deficiency, unspecified, R23.3 - Spontaneous ecchymoses, Z98.84 - Bariatric surgery status C Reactive Protein Today E50.9 - Vitamin A deficiency, unspecified, E51.9 - Thiamine deficiency, unspecified, E53.8 - Deficiency of other specified B group vitamins, E55.9 - Vitamin D deficiency, unspecified, R23.3 - Spontaneous ecchymoses, Z98.84 - Bariatric surgery status Vitamin B1 Today E50.9 - Vitamin A deficiency, unspecified, E51.9 - Thiamine deficiency, unspecified, E53.8 - Deficiency of other specified B group vitamins, E55.9 - Vitamin D deficiency, unspecified, R23.3 - Spontaneous ecchymoses, Z98.84 - Bariatric surgery status Vitamin A Today E50.9 - Vitamin A deficiency, unspecified, E51.9 - Thiamine deficiency, unspecified, E53.8 - Deficiency of other specified B group vitamins, E55.9 - Vitamin D deficiency, unspecified, R23.3 - Spontaneous ecchymoses, Z98.84 - Bariatric surgery status Ferritin Today E50.9 - Vitamin A deficiency, unspecified, E51.9 - Thiamine deficiency, unspecified, E53.8 - Deficiency of other specified B group vitamins, E55.9 - Vitamin D deficiency, unspecified, R23.3 - Spontaneous ecchymoses, Z98.84 - Bariatric surgery status Vitamin D 25-OH Total Today E50.9 - Vitamin A deficiency, unspecified, E51.9 - Thiamine deficiency, unspecified, E53.8 - Deficiency of other specified B group vitamins, E55.9 - Vitamin D deficiency, unspecified, R23.3 - Spontaneous ecchymoses, Z98.84 - Bariatric surgery status Coding Level of Care Code Est Pt Level 4 (91254) Diagnoses S/P laparoscopic sleeve gastrectomy Z98.84 Breast asymmetry N64.89 Time Spent (min) 45
[2023-07-20 09:10] VITALS: BP 115/72; PULSE 61; TEMP 35.7; O2SAT 98; BMI 24.2
== END 2023-07-20 09:47 | disposition home or self-care (01) ==
PROVIDERS: PCP Internal Medicine; Visit Provider Physician Assistant Surgical
DX: Z71.3 Dietary counseling and surveillance (principal); Z98.84 Bariatric surgery status; Z90.3 Acquired absence of stomach [part of]; N64.89 Other specified disorders of breast
CPT/HCPCS: 99214

== ENCOUNTER → 2023-07-20 08:54 | Outpatient (BNVA) | payer OTHER, SELFPAY | PROVIDERS: PCP Internal Medicine; Visit Provider Physician Assistant Surgical ==

== ENCOUNTER 2024-01-13 11:17 | Outpatient (AMB) | payer OTHER, SELFPAY ==
--- NOTE | 2024-01-13 11:26 | MHC.OFFVISWM ---
VS Expanded 01/13/24 11:31 BP 108/62 Blood Pressure Location Rt brachial Blood Pressure Position Sitting Pulse 68 Pulse Source Pulse Oximeter Temp 97.3 F Temperature Source Temporal Artery Scan Pulse Oximetry 97 Oxygen Delivery Method Room Air Height 5 ft 3 in Weight 135 lb BMI 23.9 Body Fat % 24.8 Body Fat Mass 33.6 Fat Free Mass 101.4 Visceral Fat Rating 2.0 Body Water % 53.9 Body Water Mass 72.8 Muscle Mass/Score 96.4 Basal Metabolic Rate/Score 1,379 Intake Visit Reasons: (OV) LSG 12/05/22 *See Comments* Allergies No Known Allergies Allergy (Verified 01/13/24 11:34) Medication List - Last Reconciled 01/13/24 by J CARLOS Beasley clotrimazole 1% 1 appl topical BID HPI Comments Details: This?is a?33?yo female who is s/p LSG 12/05/2022. Weight at last visit on 07/20/2023 was 136.8 pounds with a BMI of 24.2, weight today is 135 pounds, representing a 1.8 pound weight loss with a BMI today of 23.9.? TBWL 43.2%, has lost 103lbs. No complaints of nausea, emesis, abdominal pain or reflux, or constipation. Present meal plan includes: Orgain shakes 8-1030 1 scoop ZP bar 10-12, 130-330 630 pm meal 4 forks protein 4 forks veg protein chips Pt reports she is doing one Zone protein bar per day, does not have protein shakes often, pea crisps (8g protein), 1 meal a day (meat/veg in small portions) taking MVI Drinking 64 oz water daily Exercise routine includes: walking daily, 1 hour, 2 miles, 250 calories, then gym 1/2 hour treadmill speed 3 incline 10, 425-450 dulce 2 days per week. yoga 2-3 times per week Pt is having issues of excess skin of abdomen. Gets painful itchy rashes of skin folds and notices moisture collecting in the area which has unpleasant odor. Has to wash frequently and keep very dry. The heaviness of the excess skin is very uncomfortable, notices it when she bends over or is more active. The skin moves around and she experiences discomfort during walking and other activites of daily living. She has to wear compressive waistband or compressive undergarments to hold skin in place to prevent it from moving around. [facility] Medical History BMI 38.0-38.9,adult BMI 39.0-39.9,adult Viral illness Encounter for general adult medical examination with abnormal findings Morbid obesity due to excess calories PTSD (post-traumatic stress disorder) Manic depression History of kidney stones Surgical History S/P laparoscopic sleeve gastrectomy History of lithotripsy Family History Sister Substance use disorder Mental health disorder Brother Substance use disorder Mental health disorder Mother Substance use disorder Mental health disorder Father Substance use disorder Mental health disorder Other Patient unsure of family history Social History Household Members: None Household Members Other:: Parents Housing: Apartment Are you a primary point of care specialist to a significant other at home: No Do you presently have visiting nurse or other home services: No Patient Tobacco Use Status: Never used Tobacco e-Cigarette/Vaping Use: Currently Using (less than monthly ) Substance Use Type: Marijuana service: No Current occupational status: employed Cognitive needs: No Hearing needs: No Vision needs: Yes Physical Exam Const General: cooperative, comfortable and no acute distress Orientation/consciousness: patient oriented x3 GI Other: soft, nontender, nondistended, incisions well healed, no hernia, no masses Grade II pannus Neuro General: patient oriented x3 Assessment & Plan Assessment & Plan (1) S/P laparoscopic sleeve gastrectomy: Code(s): Z98.84 - Bariatric surgery status Category: Surgical (2) Excess skin: Code(s): L98.7 - Excessive and redundant skin and subcutaneous tissue Category: Medical Plan Pt is doing well maintaining a healthy BMI. Discussed that she appears low in overall protein intake, could incorporate an additional protein bar to get closer to goal. Continues to exercise adequately. She would like a referral to a plastic surgeon to evaluate ongoing issues with her breast asymmetry/painful rashes. Will place a referral to Dr. Serrano. Pt is also experiencing frequent painful rashes of excess skin of abdomen as well as limitation of activities of daily living due to discomfort from excess skin. Clotrimazole ointment ordered. Labs ordered. RTC 3 months to monitor ongoing issues of excess skin. Medications: New clotrimazole 1% 1 appl topical BID 45 grams 3RF
[2024-01-13 11:31] VITALS: BP 108/62; PULSE 68; TEMP 36.3; O2SAT 97; BMI 23.9
== END 2024-01-13 12:00 | disposition home or self-care (01) ==
PROVIDERS: PCP Internal Medicine; Visit Provider Physician Assistant Surgical
DX: L98.7 Excessive and redundant skin and subcutaneous tissue (principal); Z98.84 Bariatric surgery status
CPT/HCPCS: 99214

== ENCOUNTER → 2024-01-13 11:17 | Outpatient (BNVA) | payer OTHER, SELFPAY | PROVIDERS: PCP Internal Medicine; Visit Provider Physician Assistant Surgical ==

== ENCOUNTER 2024-09-08 08:50 | Outpatient (AMB) | payer OTHER, SELFPAY ==
--- NOTE | 2024-09-08 08:54 | A.OFFVIS_ITS ---
VS Expanded 09/08/24 09:00 BP 108/57 L Blood Pressure Location Lt brachial Blood Pressure Position Sitting Pulse 80 Height 5 ft 3 in Weight 127 lb 12.8 oz BMI 22.6 Body Fat % 25.9 Body Fat Mass 0 Fat Free Mass 94.6 Visceral Fat Rating 2.0 Body Water % 53.2 Body Water Mass 8.0 Muscle Mass/Score 89.8 Basal Metabolic Rate/Score 1,298 Intake Visit Reasons: (OV) PO LSG 12/05/22 *See Comment* Corrections Caseworker Required: No Allergies No Known Allergies Allergy (Verified 09/08/24 08:59) Medication List - Last Reconciled 09/08/24 by J CARLOS Beasley No Known Home Meds HPI Comments Details: This?is a?33?yo female who is s/p LSG 12/05/2022. Weight at last visit on 07/20/2023 was 135 pounds with a BMI of 23.9, weight today is 127.8 pounds, representing a 7.2 pound weight loss with a BMI today of 22.6.? TBWL 43.2%, has lost 103lbs. No complaints of nausea, emesis, abdominal pain or reflux, or constipation. Present meal plan includes: Orgain shakes 8-1030 1 scoop ZP bar 10-12, 130-330 meal 4 forks protein 4 forks veg protein chips or pea crisps taking MVI Drinking 64 oz water daily Exercise routine includes: walking daily, 1 hour, 2 miles, 250 calories, then gym 1/2 hour treadmill speed 3 incline 10, 425-450 dulce 2 days per week. yoga 2-3 times per week Pt is having issues of excess skin of abdomen. Gets painful itchy rashes of skin folds and notices moisture collecting in the area which has unpleasant odor. Has to wash frequently and keep very dry, however showering sometimes will actually make the skin more itchy. The heaviness of the excess skin is very uncomfortable, notices it when she bends over or is more active. She also notices it during sleep; when she sleeps on her side, the skin pulls on her sides and causes discomfort/pinching. She has previously tried clotrimazole ointment without resolution of these issues. The skin moves around and she experiences discomfort during walking and other activites of daily living. She has to wear compressive waistband or compressive undergarments to hold skin in place to prevent it from moving around. [facility] Medical History BMI 38.0-38.9,adult BMI 39.0-39.9,adult Viral illness Encounter for general adult medical examination with abnormal findings Morbid obesity due to excess calories PTSD (post-traumatic stress disorder) Manic depression History of kidney stones Surgical History S/P laparoscopic sleeve gastrectomy History of lithotripsy Family History Sister Substance use disorder Mental health disorder Brother Substance use disorder Mental health disorder Mother Substance use disorder Mental health disorder Father Substance use disorder Mental health disorder Other Patient unsure of family history Social History Household Members: None Household Members Other:: Parents Housing: Apartment Are you a primary emergency care attendant to a significant other at home: No Do you presently have visiting nurse or other home services: No Patient Tobacco Use Status: Never used Tobacco e-Cigarette/Vaping Use: Currently Using (less than monthly ) Substance Use Type: Marijuana service: No Current occupational status: employed Cognitive needs: No Hearing needs: No Vision needs: Yes Physical Exam Vital Signs: Last Vital Signs Pulse 80 09/08/24 09:00 BP 108/57 L 09/08/24 09:00 BMI result Body Mass Index 22.6 Const General: cooperative, comfortable and no acute distress Orientation/consciousness: patient oriented x3 GI Other: soft, nontender, nondistended, incisions well healed Grade II pannus Neuro General: patient oriented x3 Assessment & Plan Assessment & Plan (1) Excess skin: Code(s): L98.7 - Excessive and redundant skin and subcutaneous tissue Category: Medical (2) S/P laparoscopic sleeve gastrectomy: Code(s): Z98.84 - Bariatric surgery status Category: Surgical Plan Pt has done very well maintaining a healthy weight 21 months s/p LSG. She has achieved weight stability for more than 1 month as evidenced by measurements on her home scale that she texted to me (Jun 17 2024- 128.4, Jul 12 2024- 127.2) She is experiencing issues of excess skin of abdomen resulting in frequent painful, itchy, malodorous rashes which are unrelieved by topical antifungals. In addition she is experiencing limitations/discomfort in activities of daily living, including walking, bending, and even sleeping. She requires the use of special clothing at all times to try to prevent discomfort but her issues have not been completely relieved by conservative measures. She would benefit from definitive treatment of panniculectomy. Photos taken today, can submit to insurance. Orders: Orders Hemoglobin A1c Today Z98.84 - Bariatric surgery status Lipid Panel Today Z98.84 - Bariatric surgery status IRON PROFILE Today Z98.84 - Bariatric surgery status Comprehensive Met. Panel Today Z98.84 - Bariatric surgery status Vitamin B12 and Folate Today Z98.84 - Bariatric surgery status C Reactive Protein Today Z98.84 - Bariatric surgery status Vitamin B1 Today Z98.84 - Bariatric surgery status Insulin Today Z98.84 - Bariatric surgery status Complete Blood Count Auto Diff Today Z98.84 - Bariatric surgery status Zinc Today Z98.84 - Bariatric surgery status Vitamin A Today Z98.84 - Bariatric surgery status TSH reflex Free T4 Today Z98.84 - Bariatric surgery status Ferritin Today Z98.84 - Bariatric surgery status Vitamin D 25-OH Total Today Z98.84 - Bariatric surgery status Medications: New clotrimazole 1% 1 appl topical BID 45 grams 3RF
[2024-09-08 09:00] VITALS: BP 108/57; PULSE 80; BMI 22.6
--- OUTSIDE RECORDS SUMMARY | 2024-09-08 09:42 | XMS_ITS | Data Portability ---
Author Organization [place] - [facility], [facility] Address [address] [place] [id number] Assessment Encounter Date Assessment Date Assessment LastModified by Organization Details LastModified Time 10/10/2009 10/10/2009 SAMLL GANGLION CYST [id number] Not available 01/13/2011 02:10:01 02/24/2011 02/24/2011 20 yo female with CP assoc with URI/fever - suboptimal exam of lungs due to pt discomfort, CXR ordered - Mom to go to [facility] and await call from me with results, if neg would have pt seen in ED to determine cause, if + pneumonia will Rx with abx kcamera Not available 02/24/2011 17:56:50 Plan of Treatment Reminders Order Date Submit Date Provider Last Modified By Organization Details Last Modified Time Details Appointments None recorded. Lab pulse oximetry lab 2010 011 [facility], [address] [place] [address], [id number], 3 03:09:40 Referral None recorded. Procedures None recorded. Surgeries None recorded. Imaging x-ray, chest - CP with deep inspiration - rule out pneumonia or other pathology 2010 011 [facility] Not available 3 03:09:40 Medication Orders None recorded. Patient TargetsNo targets recorded. Patient Instructions Encounter Date Encounter Id Patient Instructions Last Modified By Organization Details Last Modified Time 10/10/2009 [id number] Rx: NONE AT PRESENT --- WILL CALL AREA BECOMES TENDER OR LARGER IN SIZE -> THEN TO HAND SURGEON [email or web address] Not available 01/13/2011 02:08:16 10/31/2009 [id number] cont diet and exercise; weight goal for next year 160's; gardasil info given [id number] Not available 01/13/2011 02:08:55 Reason for Referral None Reported. Results Created Date Observation Date Name Description Value Unit Range Abnormal Flag Note LastModifiedBy Organization Detail LastModifiedTime 02/25/20 11 02/24/2011 pulse oxime try lab O2 Saturation 98 Not Available [facility] [address] [place] [address], [phone], 02/24/2011 17:32:10 02/25/20 11 02/24/2011 x-ray , chest No observ ation record ed. [address] [place], [place], [id number], 01/07/2013 03:09:40 Result Notes None recorded. Problems Name Problem SNOMED Code Status Onset Date Resolution Date Notes Provider Name and Address Organization Details Recorded Time Acute conjunctivi tis 17440640 Active 2008 Not Available [facility] 3 03:01:06 Abnormal weight gain 768742284 Active 2006 Not Available [facility] 3 03:01:06 Parent-chil d problem 69993118 Active adopted Not Available [facility] 3 03:01:06 Open wound 591420169 Active 2008 Not Available [facility] 3 03:01:06 Ganglion cyst of tendon sheath 87060483 Active Not Available [facility] 3 03:01:06 Chest pain 17017401 Active Not Available [facility] 3 03:01:06 Problem Notes None recorded. Procedures Surgical History Date Name Laterality Status Provider Name and Address Organization Details Recorded Time 06/15/2011 Urologic completed Jonathon Bradley MA - [facility] 07/28/2011 14:24:27 Imaging Results Imaging Date Name Status LastModified by Organiz ation Details LastModified Time 02/24/2011 x-ray, chest completed [address] [place], [place], [id number], 01/07/2013 03:09:40 Procedure Notes None recorded. Medical Equipment None Reported. Allergies No known drug allergies Medications Name Sig Start Date Stop Date Status Note LastModified by Organization Details LastModified Time Kariva (28) 0.15 mg-0.02 mg (21)/0.01 mg (5) tablet active Not Available Not Available Not Available Vitals Date Recorded Body height Body weight Body mass index (BMI) Systolic blood pressure Diastolic blood pressure Provider Name and Address Organization Details Last Updated DateTime 10/31/2009 162.56 cm 71541.81 134 g 31.2 kg/m2 114 mm[Hg] 62 mm[Hg] Mariely ware M.A. [facility] 0 14:17:59 Social History Question Answer Notes LastModified by Organizat ion Details LastModified Time Parent's Marital Status Information not available 04/19/2011 Home Situation Adoptive Parents Information not available 04/19/2011 Siblings Benjamin12/08/98, Rodney 10/14/05 Information not available 04/19/2011 Parent's Name Abi Information not available 04/19/2011 Parent's Name Camilo Information not available 04/19/2011 Sex: Unknown Functional Status None recorded. Mental Status None recorded. Family History Nothing Reported. Medical History Condition Response CARDIAC PROBLEMS N ALLERGIC AND IMMUNOLOGIC PROBLEMS Y DEVELOPMENTAL/ BEHAVIORAL PROBLEMS N MUSCLE/ JOINT/ BONE PROBLEMS N DERMATOLOGIC PROBLEMS/ECZEMA N HOSPITALIZATIONS N ENT PROBLEMS/OTITIS MEDIA/ CHRONIC N RENAL PROBLEMS Y HEMATOLOGIC /ONCOLOGIC PROBLEMS N ACCIDENTS INJURIES N NEUROLOGIC/ SEIZURES OR CONVULSIONS N ADHD N ENDOCRINE PROBLEMS/DIABETES N HEADACHES/MIGRAINES/DIZZINESS N GI PROBLEMS/CONSTIPATION N CONGENITAL AND GENETIC PROBLEMS N ORTHOPEDIC PROBLEMS N CHICKEN POX / VARICELLA HISTORY or POSIT NELDA TITER N PUMONARY PROBLEMS/ ASTHMA N PSYCH PROBLEMS Y Gynecological HistoryNo gynecological history recorded. Obstetrics History GPAL:G 0 P 0 0 0 0 Immunizations Vaccine Type Date Status Note Provider Nam e and Address Organization Details Recorded Time Influenza, split virus, trivalent, preservative 1 completed Not Available [facility] 07/02/2019 02:35:17 Novel [id number], nasal 9 completed Not Available [facility] 07/02/2019 02:34:48 varicella 11/04/200 8 completed Not Available [facility] 04/19/2011 03:16:44 influenza, unspecified formulation 8 completed Not Available [facility] 04/19/2011 03:19:09 Influenza, split virus, trivalent, preservative 0 completed Not Available [facility] 07/02/2019 02:34:45 Tdap 0 completed Not Available [facility] 07/02/2019 02:33:40 meningococcal ACWY, unspecified formulation 6 completed Not Available [facility] 04/19/2011 03:17:38 varicella 6 completed Not Available [facility] 04/19/2011 03:17:38 Td(adult) unspecified formulation 4 completed Not Available [facility] 04/19/2011 03:19:09 Influenza, split virus, trivalent, preservative 0 completed Not Available [facility] 07/02/2019 02:35:07 Past Encounters Encounter ID Performer Location Encounter Start Date Encounter Closed Date Diagnosis/Indication Diagnosis SNOMED-CT Code Diagnosis ICD10 Code Diagnosis Note [id number] [facility] [address] [place] [address] [place] [id number] 12/30/2006 16:17:00 12/30/2006 16:51:47 [id number] [facility] [address] [place] [address] [place] [id number] 03/03/2007 15:38:38 03/03/2007 16:25:03 [id number] [facility] [address] [place] [address] [place] [id number] 04/18/2008 11:05:40 04/18/2008 11:51:40 [id number] [facility] [address] [place] [address] [place] [id number] 06/12/2008 14:43:53 06/12/2008 15:00:56 [id number] [facility] [address] [place] [address] [place] [id number] 07/07/2008 13:56:01 07/07/2008 14:19:32 [id number] [facility] [address] [place] [address] [place] [id number] 08/13/2008 11:22:10 08/13/2008 12:03:42 [id number] [facility] [address] [place] [id number] 08/15/2008 16:52:40 02/22/2009 01:23:50 [id number] [facility] [address] [place] [id number] 10/10/2009 15:30:20 10/10/2009 16:29:57 [id number] [facility] [address] [place], [place] [id number] 10/31/2009 14:12:30 10/31/2009 16:01:33 [id number] [facility] [address] [place] [id number] 02/24/2011 16:59:51 02/24/2011 17:43:05 Health Concerns Section Related Observation LastModified by Organization Detai ls LastModified Time None Recorded Concern Status LastModified by Organization Details LastModified Time None Recorded Advance Directives Directive None Recorded Payers Encounter Date Sequence Insurance Name Policy Number Policy Jackman Covered Member ID Jackman Member ID Guarantor Name 08/13/2008 1 *SELF PAY* Sarahy Schwartz 08/15/2008 1 *SELF PAY* Sarahy Schwartz 10/10/2009 1 [employer] [id number] Abi Walkerel [id number] Abi Walkerel 10/31/2009 1 [employer] [id number] Abi Walkerel [id number] Abi Schwartz 02/24/2011 1 [employer] [id number] Abi Gilboa [id number] Abi Schwartz Notes Date Note Type Note Provider Name and Address Organization Details Recorded Time 10/31/2009 text/html ROS neg; LMP 1 month ago, regular, pos cramps (midol); neg VSD Jonathon flores MA - [facility] 10/31/2009 15:46:05 OBGyn Episode No OBEpisode recorded.
== END 2024-09-08 10:13 | disposition home or self-care (01) ==
LOC: HO.HBS 08:51
PROVIDERS: PCP Internal Medicine; Visit Provider Physician Assistant Surgical
DX: L98.7 Excessive and redundant skin and subcutaneous tissue (principal); Z98.84 Bariatric surgery status
CPT/HCPCS: 99214; G2211

== ENCOUNTER 2024-09-23 08:45 | Outpatient (AMB) | payer OTHER, SELFPAY ==
[2024-09-23 08:52] VITALS: BP 100/72; PULSE 68; O2SAT 100; BMI 23.9
--- NOTE | 2024-09-23 08:52 | A.OFFPC_ITS ---
Vital Signs 09/23/24 08:52 Height 5 ft 3 in Weight 135 lb 2 oz BMI 23.9 BP 100/72 Blood Pressure Location Rt brachial Position Sitting Pulse 68 Pulse Source Pulse Oximeter Pulse Oximetry (%) 100 Intake Visit Reasons: PE Allergies No Known Allergies Allergy (Verified 09/23/24 08:54) Medication List - Last Reconciled 09/23/24 by Dorothy Batista MD No Known Home Meds Tobacco use date assessed: 09/23/24 Dental Screening Dental Screen Date: 09/23/24 Did you have a dental visit in the last 12 months?: Yes Did you have a dental problem in the last 6 months where you did not have access to dental care?: No Was dental information given to patient?: Patient has dentist HPI PE HPI Details History of Present Illness - The patient is a 33-year-old female pr esenting for physical exam and follow- up. - The patient has a history of significa nt weight loss following bariatric surgery, leading to skin redundancy that requires surgical intervention. - followsup with an OBGYN, and she is d ue for a Pap smear. - Labs were conducted several months lola or, with new tests necessary for upcoming surgery prep. - No abdominal discomfort or issues rela rhoda to past surgical interventions are reported. Health Maintenance - Tdap (Tetanus, diphtheria, and pertuss is) vaccination administered. - Routine Pap smear scheduled in two mon ths. 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 - Not engaged in a daytime job as per pr evious work arrangements. Patient Instructions - Conduct preoperative lab tests for ski n removal surgery. - Return for Pap smear as scheduled. - Follow up in one year for routine exam . Review of Systems - General: No fever no chills - Neurological: No headaches no dizzin ess - Ear nose throat: No sore throat no hearing difficulty no ear pain - Cardiovascular: No syncope, no chest pain, no palpitations - Gastrointestinal: No nausea vomiting or diarrhea - Endocrine: No polyuria polydipsia no heat intolerance - Genitourinary: No dysuria - Skin: No new complaints Physical Exam General: Cooperative, healthy appearing, comfortable, no acute distress Orientation: Patient oriented x3 Limitations: none Head: Normal to inspection Ears: Within normal limit visually Nose: Normal external nose present Face and sinus: Normal facial exam Eyes: Appearance normal, extraocular movement intact pupils reactive Neck: Normal visual inspection and supple Respiratory: Normal respiratory effort and able to speak in complete sentences. Clear to auscultation, no stridor Cardiovascular: S1 and S2 RRR Breast exam thru Obgyn GI: Normal to inspection. Soft to palpation and nontender Skin: Turgor normal, excessuve abd skin noted Neuro: Patient oriented x3, motor sensory intact, balance intact, tandem pass Extremities: Normal to inspection [facility] Medical History BMI 38.0-38.9,adult BMI 39.0-39.9,adult Viral illness Encounter for general adult medical examination with abnormal findings Morbid obesity due to excess calories PTSD (post-traumatic stress disorder) Manic depression History of kidney stones Surgical History S/P laparoscopic sleeve gastrectomy History of lithotripsy Family History Sister Substance use disorder Mental health disorder Brother Substance use disorder Mental health disorder Mother Substance use disorder Mental health disorder Father Substance use disorder Mental health disorder Other Patient unsure of family history Social History Household Members: None Household Members Other:: Parents Housing: Apartment Are you a primary child care attendant to a significant other at home: No Do you presently have visiting nurse or other home services: No Patient Tobacco Use Status: Never used Tobacco e-Cigarette/Vaping Use: Currently Using Substance Use Type: Marijuana service: No Current occupational status: employed Cognitive needs: No Hearing needs: No Vision needs: Yes Questionnaire PHQ-9 Over the last 2 weeks, how often have you been bothered by any of the following problems? 1. Little interest or pleasure in doing things: several days 2. Feeling down, depressed, or hopeless: several days 3. Trouble falling or staying asleep, or sleeping too much: more than half the days 4. Feeling tired or having little energy: several days 5. Poor appetite or overeating: not at all 6. Feeling bad about yourself - or that you are a failure or have let yourself or your family down: not at all 7. Trouble concentrating on things, such as reading the newspaper or watching television: several days 8. Moving or speaking so slowly that other people could have noticed. Or the opposite - being so fidgety or restless that you have been moving around a lot more than usual: not at all 9. Thoughts that you would be better off or of hurting yourself in some way: not at all Total score: 6 Depression Screening Interpretation: Negative Depression Screening Done: Yes 65755 - PHQ-9 Billing: Yes Source: Developed by Drs. Nilesh Lea, Miladis Vazquez, Junior Garcia and colleagues, with an educational roderick from [employer]. Thrive Questionnaire Date Thrive assessed: 09/23/24 I am a: Patient What is your living situation today?: I have a steady place to live Within the past 12 months, did the food you bought not last and you didn't have the money to get more?: I choose not to answer this question Within the past 12 months, did you worry whether your food would run out before you got money to buy more?: I choose not to answer this question Do you have trouble paying for medicines?: I choose not to answer this question Do you have trouble getting transportation to medical appointments?: No Do you have trouble paying your heating and electricity bill?: I choose not to answer this question Do you have trouble taking care of your child, family member or friend?: No Do you have trouble with day-to-day activities such as bathing, preparing meals, shopping, managing finances, etc.?: No Are you currently unemployed and looking for a job?: Yes Are you interested in more education?: No Please select the resources that you would like help with: None Currently or been in a relationship where the following occur: No concerns reported THRIVE Score: 0 AUDIT C Alcohol Use Questionnaire (AUDIT-C) 1. How often do you have a drink containing alcohol?: Monthly or less 2. How many drinks containing alcohol do you have on a typical day when you are drinking?: 1 or 2 3. How often do you have six or more drinks on one occasion?: Never Total Score: 1 Score Reviewed/Action Taken: Yes MARCY-7 AMB Questionnaire MARCY-7 Date MARCY - 7 assessed: 09/23/24 Feeling nervous, anxious, or on edge: 2 = More than half the days Not being able to stop or control worryin = More than half the days Worrying too much about different things: 2 = More than half the days Trouble relaxin = More than half the days Being so restless that it is hard to sit still: 2 = More than half the days Becoming easily annoyed or irritable: 2 = More than half the days Feeling afraid as if something awful might happen: 2 = More than half the days Total MARCY-7 score (0-4 normal; 5-9 mild; 10-14 moderate; 15-21 severe): 14 Source: Developed by Drs. Nilesh Lea, Miladis Vazquez, Junior Garcia and colleagues, with an educational roderick from [employer]. MARCY-7 Assessment Billing MARCY-7 Assessment Tool: MARCY-7 Assessment 84712 Physical exam (Primary Care) Vital Signs: Last Vital Signs Pulse 68 09/23/24 08:52 BP 100/72 09/23/24 08:52 Pulse Ox 100 09/23/24 08:52 BMI result Body Mass Index 23.9 Tobacco/Smoking Status: Tobacco use Status Tobacco use date assessed 09/23/24 09/23/24 08:55 Patient Tobacco Use Status Never used Tobacco 09/23/24 08:55 e-Cigarette/Vaping Use Currently Using 09/23/24 08:55 PHQ-9: PHQ-9 Score PHQ-9: Total score 6 09/23/24 09:33 Depression Screening Interpretation: Negative Thrive Assessment: Date of Thrive Assessment Date Thrive assessed 09/23/24 09/23/24 08:55 Currently or been in a relationship where the following occur: No concerns reported Immunizations Boostrix Tdap 2.5 Lf unit-8 mcg-5 Lf/0.5 mL intramuscular syringe Performing Provider: Dorothy Batista MD Performing Location: [facility] Administered by: Myrtle Schaffer RN on 09/23/24 09:33 Dose Route Admin Location Dispensed Lot Number Expiration Date [facility] Screen [employer] Operator 0.5 mL IM Right Deltoid 0.5 mL [id number] 10/01/26 16905-908-68 [employer] VIS Given Date VIS Provided VIS Publication Date 09/23/24 Single Vaccine 24 Eligibility Eligibility Date Funding Source Not [facility] Eligible 04/11/25 Private Coding Level of Care Code Est Pt Prev Care 18-39y(40542) Diagnoses Adult wellness visit Z00.00 Additional Codes MARCY-7 Assessment Billing - MARCY-7 Assessment Tool: MARCY-7 Assessment 80960 ([id number]) PHQ-9 - 38560 - PHQ-9 Billing: Yes ([id number]) Assessment & Plan Assessment & Plan (1) Adult wellness visit: Code(s): Z00.00 - Encounter for general adult medical examination without abnormal findings Category: Medical Plan History of Present Illness - The patient is a 33-year-old female presenting for physical exam and follow- up. - The patient has a history of significant weight loss following bariatric surgery, leading to skin redundancy that requires surgical intervention. - followsup with an OBGYN, and she is due for a Pap smear. - Labs were conducted several months prior, with new tests necessary for upcoming surgery prep. - No abdominal discomfort or issues related to past surgical interventions are reported. Health Maintenance - Tdap (Tetanus, diphtheria, and pertussis) vaccination administered. - Routine Pap smear scheduled in two months. 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 Patient Instructions - Conduct preoperative lab tests for skin removal surgery. - Return for Pap smear as scheduled. - Follow up in one year for routine exam. Orders: Orders TDaP Immunization Today Z23 - Encounter for immunization
--- OUTSIDE RECORDS SUMMARY | 2024-09-23 08:55 | XMS_ITS | Data Portability ---
Author Organization [place] - [facility] Address [address] [place] [address] Assessment Encounter Date Assessment Date Assessment LastModified by Organization Details LastModified Time 10/10/2009 10/10/2009 SAMLL GANGLION CYST DBA_PATCH_ [id number] Not available 01/13/2011 02:10:01 02/24/2011 02/24/2011 20 yo female with CP assoc with URI/fever - suboptimal exam of lungs due to pt discomfort, CXR ordered - Mom to go to [facility] and await call from me with results, if neg would have pt seen in ED to determine cause, if + pneumonia will Rx with abx kcamera Not available 02/24/2011 17:56:50 Plan of Treatment Reminders Order Date Submit Date Provider Last Modified By Organization Details Last Modified Time Details Appointments None recorded. Lab pulse oximetry lab 2010 011 [facility], [address] [place] [address], [phone], 3 03:09:40 Referral None recorded. Procedures None recorded. Surgeries None recorded. Imaging x-ray, chest - CP with deep inspiration - rule out pneumonia or other pathology 2010 011 [facility] Not available 3 03:09:40 Medication Orders None recorded. Patient TargetsNo targets recorded. Patient Instructions Encounter Date Encounter Id Patient Instructions Last Modified By Organization Details Last Modified Time 10/10/2009 [id number] Rx: NONE AT PRESENT --- WILL CALL AREA BECOMES TENDER OR LARGER IN SIZE -> THEN TO HAND SURGEON DBA_PATCH_ Not available 01/13/2011 02:08:16 10/31/2009 [id number] cont diet and exercise; weight goal for next year 160's; gardasil info given [id number] Not available 01/13/2011 02:08:55 Reason for Referral None Reported. Results Created Date Observation Date Name Description Value Unit Range Abnormal Flag Note LastModifiedBy Organization Detail LastModifiedTime 02/25/20 11 02/24/2011 pulse oxime try lab O2 Saturation 98 Not Available [facility] [address] [place] [address], [phone], 02/24/2011 17:32:10 02/25/20 11 02/24/2011 x-ray , chest No observ ation record ed. [address] [place], [place], [address], 01/07/2013 03:09:40 Result Notes None recorded. Problems Name Problem SNOMED Code Status Onset Date Resolution Date Notes Provider Name and Address Organization Details Recorded Time Acute conjunctivi tis 01187320 Active 2008 Not Available [facility] 3 03:01:06 Abnormal weight gain 939801404 Active 2006 Not Available [facility] 3 03:01:06 Parent-chil d problem 83794911 Active adopted Not Available [facility] 3 03:01:06 Open wound 311663626 Active 2008 Not Available [facility] 3 03:01:06 Ganglion cyst of tendon sheath 33435906 Active Not Available [facility] 3 03:01:06 Chest pain 87527059 Active Not Available [facility] 3 03:01:06 Problem Notes None recorded. Procedures Surgical History Date Name Laterality Status Provider Name and Address Organization Details Recorded Time 06/15/2011 Urologic completed Jonathon Bradley [place] - [facility] 07/28/2011 14:24:27 Imaging Results Imaging Date Name Status LastModified by Organiz ation Details LastModified Time 02/24/2011 x-ray, chest completed [address] [place], [place], [address], 01/07/2013 03:09:40 Procedure Notes None recorded. Medical [...] Details Last Updated DateTime 10/31/2009 162.56 cm 07164.81 134 g 31.2 kg/m2 114 mm[Hg] 62 mm[Hg] Mariely ware M.A. [facility] 0 14:17:59 Social History Question [...] virus, trivalent, preservative 1 completed Not Available [facility] 07/02/2019 02:35:17 Novel Oelnmniqa-X7A4-90, nasal 9 completed Not Available [facility] 07/02/2019 02:34:48 varicella 11/04/200 8 completed Not Available [facility] 04/19/2011 03:16:44 influenza, unspecified formulation 8 completed Not Available [facility] 04/19/2011 03:19:09 Influenza, split virus, trivalent, preservative 0 completed Not Available [facility] 07/02/2019 02:34:45 Tdap 0 completed Not Available [facility] 07/02/2019 02:33:40 meningococcal ACWY, unspecified formulation 6 completed Not Available [facility] 04/19/2011 03:17:38 varicella 6 completed Not Available [facility] 04/19/2011 03:17:38 Td(adult) unspecified formulation 4 completed Not Available [facility] 04/19/2011 03:19:09 Influenza, split virus, trivalent, preservative 0 completed Not Available [facility] 07/02/2019 02:35:07 Past Encounters Encounter ID Performer Location Encounter Start Date Encounter Closed Date Diagnosis/Indication Diagnosis SNOMED-CT Code Diagnosis ICD10 Code Diagnosis Note [id number] [facility] [address] [place] [address] [place] [address] 12/30/2006 16:17:00 12/30/2006 16:51:47 [id number] [facility] [address] [place] [address] [place] [address] 03/03/2007 15:38:38 03/03/2007 16:25:03 [id number] [facility] [address] [place] [address] [place] [address] 04/18/2008 11:05:40 04/18/2008 11:51:40 [id number] [facility] [address] [place] [address] [place] [address] 06/12/2008 14:43:53 06/12/2008 15:00:56 [id number] [facility] [address] [place] [address] [place] [address] 07/07/2008 13:56:01 07/07/2008 14:19:32 [id number] [facility] [address] [place] [address] [place] [address] 08/13/2008 11:22:10 08/13/2008 12:03:42 [id number] [facility] [address] [place] [address] 08/15/2008 16:52:40 02/22/2009 01:23:50 [id number] [facility] [address] [place] [address] 10/10/2009 15:30:20 10/10/2009 16:29:57 [id number] [facility] [address] [place], [place] [address] 10/31/2009 14:12:30 10/31/2009 16:01:33 [id number] [facility] [address] [place] [address] 02/24/2011 16:59:51 02/24/2011 17:43:05 Health Concerns [...] *SELF PAY* Sarahy Schwartz 10/10/2009 1 [employer] [id number] Abi Walkerel [id number] Abi Walkerel 10/31/2009 1 [employer] [id number] Abi Walkerel [id number] Abi Schwartz 02/24/2011 1 [employer] [id number] Abi Philo [id number] Abi Schwartz Notes Date Note Type Note Provider Name and Address Organization Details Recorded Time 10/31/2009 text/html ROS neg; LMP 1 month ago, regular, pos cramps (midol); neg VSD Jonathon flores MA - [facility] 10/31/2009 15:46:05 OBGyn Episode No OBEpisode recorded.
--- OUTSIDE RECORDS SUMMARY | 2024-09-23 08:55 | XMS_ITS ---
Author Organization [facility] Address [address] [place] [address] [address] [place] [address] Care Team Providers Care Cdl Program Coordinator Name Role Phone SHERRILL JAMISON Primary Care Provider Cher Velasquez Unavailable [phone] REASON FOR VISIT Urine Order Encounters Encounter Location Date Provider Diagnosis [facility] [employer] [address] [address] 06/02/2024 Cher Anderson Urgency of urination R39.15 Assessments Encounter Date Diagnosis (ICD Code) Assessment Notes Treatment Notes Treatment Clinical Notes Section Notes 06/02/2024 Urgency of urination (ICD-10 - R39.15) Plan Of Treatment Pending Test Test Name Order Date Urinalysis, Complete-[id number] 06/02/2024 Urine Culture, Routine-[id number] 06/02/2024 Next Appt Details Provider Name:Cher pascual, 03/06/2025 09:00:00 AM, [address] [place] [address], [address], [place], [address], Progress Notes * EILEEN PILLAIDOB:1990 (33 yo F)Acc No.[id number]:06/02/2024 Patient:?ROSASCLIVEYN :1990???Age:33 Y???Sex:Female Phone: Address:[address] [place] [address], [address] Subjective: * Chief Complaints: * ???Urine Order * Medical History:? * Surgical History:? * Hospitalization/Major Diagno stic Procedure:? * Medications:? Objective: * Vitals:? * Physical Examination:? Assessment: * Assessment: 1.?Urgency of urination - R3 9.15??? Plan: * Treatment: * Procedure Codes:? * true * Date:? Generated for Miguel jordan/Sergey/Gayle on:?09/23/2024 08:55 AM EDT
--- OUTSIDE RECORDS SUMMARY | 2024-09-23 08:55 | XMS_ITS ---
Author Organization [facility] Address [address] [place] [address] Care Team Providers Care Collar Closer Lockstitch Name Role Phone SHERRILL JAMISON Primary Care Provider Cher Velasquez [phone] Medications Medication SIG (Take, Route, Fr equency, Duration) Notes Start Date End Date Status Augmentin 500-125 MG 1 tablet Orally Twi ce a day for 7 days 05/11/2024 Active Encounters Encounter Location Date Provider Diagnosis [facility] [address] [address] 05/11/2024 Cher Anderson Plan Of Treatment Medication Medication Name Sig Start Date Stop Date Notes Augmentin 500-125 MG 1 tablet Orally Twi ce a day for 7 days 05/11/2024 Next Appt Details Provider Name:Cher pascual, 03/06/2025 09:00:00 AM, [address] [place] [address], [address], [place], [address], Progress Notes * ROSAS EILEENDOB:1990 (33 yo F)Acc No.[id number]:05/11/2024 Patient:?EILEEN PILLAI :1990???Age:33 Y???Sex:Female Address:[address] [place] [address], [place], [address] * Refills? Start Augmentin Tablet, 500-125 MG, Orally, 14 Tablet, 1 tablet, Twice a day, 7 days, Refills=0 * true * Date:? Generated for Miguel jordan/Sergey/Gayle on:?09/23/2024 08:55 AM EDT
--- OUTSIDE RECORDS SUMMARY | 2024-09-23 08:55 | XMS_ITS | Patient Health Record ---
Author Organization [facility] Address [address] [facility] [address] [place] [address] Care Team Providers Care Refrigerating Engineer Head Name Role Phone SHAHEEN ROSHNIHafsa Primary Care Provider UnavailCher Jarrett Unavailable [phone] Allergies No Known Allergies Results Component Value Reference Range Notes Urinalysis, Complete-[id number] Reviewed date:06/02/2024 08:03:26 AM Interpretation: Performing Lab:[facility], [address] [facility], Phone - [phone], Director - Amos Notes/Report: Clinical Information:LEONARDO UTI SRC:UC Clinical Information:LEONARDO UTI SRC:UC Specific [place] 1.020 1.005-1.030 pH 6.5 5.0-7.5 Urine-Color Yellow Yellow Appearance Clear Clear WBC Esterase Negative Negative Protein Negative Negative/Trace Glucose Negative Negative Ketones Negative Negative Occult Blood Negative Negative Bilirubin Negative Negative Urobilinogen,Semi-Qn 1.0 0.2-1.0 mg/dL Nitrite, Urine Positive Negative Microscopic Examination See below: Micr oscopic was indicated and was performed. WBC 6-10 0 - 5 /hpf RBC 0-2 0 - 2 /hpf Epithelial Cells (non renal) >10 0 - 10 /hpf Casts None seen None seen /lpf Crystals Present N/A Crystal Type Calcium Oxalate N/A Bacteria Many None seen/Few Urine Culture, Routine-[id number] Reviewed date:06/02/2024 02:20:45 PM Interpretation: Performing Lab:[facility] [place], [address] [facility], [place], Phone - [phone], Director - Amos Notes/Report: Clinical Information:LEONARDO UTI SRC:UC Clinical Information:LEONARDO UTI SRC:UC Urine Culture, Routine Final report Result 1 Mixed urogenital karyna 50,000-100,000 colony forming units per mL PDF Report Reviewed date:06/02/2024 08:01:52 AM Interpretation: Performing Lab:[facility], [facility] [place], Phone - [phone], Director - Amos Notes/Report: Clinical Information:LEONARDO UTI SRC:UC PDF Report Reviewed date:05/10/2024 08:02:58 AM Interpretation: Performing Lab:[facility], [address] [place] [address], Phone - [phone], Director - Alexander Notes/Report: PDF Report Reviewed date:05/10/2024 08:02:50 AM Interpretation: Performing Lab:[facility], [facility], [place], Phone - [phone], Director - Amos Notes/Report: PDF Report Reviewed date:05/11/2024 12:33:09 PM Interpretation: Performing Lab:[facility] [place], [facility], Phone - [phone], Director - Amos Notes/Report: Urine Culture, Routine-[id number] Reviewed date:05/11/2024 12:38:46 PM Interpretation: Performing Lab:[facility] Boswell, [facility], Phone - [phone], Director - Amos Notes/Report: Urine Culture, Routine Final report Result 1 Escherichia coli Greater than 100,000 colony forming units per mL Cefazolin <=4 ug/mL Cefazolin with an JOSE <=16 predicts susceptibility to the oral agents cefaclor, cefdinir, cefpodoxime, cefprozil, cefuroxime, cephalexin, and loracarbef when used for therapy of uncomplicated urinary tract infections due to E. coli, Klebsiella pneumoniae, and Proteus mirabilis. Antimicrobial Susceptibility S = Susceptible; I = Intermediate; R = Resistant P = Positive; N = Negative MICS are expressed in micrograms per mL Antibiotic RSLT#1 RSLT#2 RSLT#3 RSLT#4 Amoxicillin/Clavulanic Acid S Ampicillin R Cefepime S Ceftriaxone S Cefuroxime S Ciprofloxacin S Ertapenem S Gentamicin S Imipenem S Levofloxacin S Meropenem S Nitrofurantoin S Piperacillin/Tazobactam S Tetracycline S Tobramycin S Trimethoprim/Sulfa R CBC With Differential/Platel et-[id number] Reviewed date:05/10/2024 08:03:15 AM Interpretation: Performing Lab:[facility] Boswell, [address] [place] [address], Phone - [phone], Director - Amos Notes/Report: WBC 9.2 3.4-10.8 x10E3/uL Effective May 16, 2024 profile [id number] WBC will be made non-orderable as a stand-alone order code. RBC 4.43 3.77-5.28 x10E6/uL Hemoglobin 14.3 11.1-15.9 g/dL Hematocrit 42.5 34.0-46.6 % MCV 96 79-97 fL MCH 32.3 26.6-33.0 pg MCHC 33.6 31.5-35.7 g/dL RDW 12.0 11.7-15.4 % Platelets 246 150-450 x10E3/uL Neutrophils 79 Not Estab. % Lymphs 10 Not Estab. % Monocytes 10 Not Estab. % Eos 0 Not Estab. % Basos 0 Not Estab. % Neutrophils (Absolute) 7.3 1.4-7.0 x10E3/uL Lymphs (Absolute) 1.0 0.7-3.1 x10E3/uL Monocytes(Absolute) 0.9 0.1-0.9 x10E3/uL Eos (Absolute) 0.0 0.0-0.4 x10E3/uL Baso (Absolute) 0.0 0.0-0.2 x10E3/uL Immature Granulocytes 1 Not Estab. % Immature Grans (Abs) 0.1 0.0-0.1 x10E3/uL hCG,Beta Subunit, Qnt-[id number] Reviewed date:05/10/2024 08:10:04 AM Interpretation: Performing Lab:[facility], [address] [place] [address], Phone - [phone], Director - [facility] Notes/Report: hCG,Beta Subunit,Qnt,Serum <1 <5 MIU/ML Males and non- females: <5 mIU/mL Female (weeks of gestation): 4 weeks 5-100 mIU/mL 5 weeks 200-3000 mIU/mL 6 weeks 10,000-80,000 mIU/mL 7-14 weeks 90,000-500,000 mIU/mL 15-26 weeks 5,000-80,000 mIU/mL Peak: Late 1st Trimester 300,000 mIU/mL Interpretation: hCG levels increase exponentially during very early , after reaching a plateau during the late first trimester. hCG levels steadily decline until a steady state which is seen throughout the second and third trimesters. Although the main clinical utility of hCG levels lies within early , these findings underline the importance of hCG throughout gestational physiology and suggest that variations in hCG levels may be associated with adverse clinical outcomes such as loss, preeclampsia, delivery and growth restriction. Urinalysis, Complete-[id number] Reviewed date:05/11/2024 12:39:20 PM Interpretation: Performing Lab:Co[facility] Boswell, [address] [place] [address], Phone - [phone], Director - Amos Notes/Report: Specific [place] 1.020 1.005-1.030 pH 6.0 5.0-7.5 Urine-Color Yellow Yellow Appearance Cloudy Clear WBC Esterase 2+ Negative Protein 1+ Negative/Trace Glucose Negative Negative Ketones 1+ Negative Occult Blood 1+ Negative Bilirubin Negative Negative Urobilinogen,Semi-Qn 1.0 0.2-1.0 mg/dL Nitrite, Urine Positive Negative Microscopic Examination See below: Micr oscopic was indicated and was performed. WBC >30 0 - 5 /hpf RBC 0-2 0 - 2 /hpf Epithelial Cells (non renal) 0-10 0 - 10 /hpf Casts None seen None seen /lpf Bacteria Many None seen/Few Urinalysis Reviewed date:05/09/2024 12:05:02 PM Interpretation: Performing Lab: Notes/Report: NITRITE Positive PH 5.0 PROTEIN Moderate S.G 1.015 WBC Large GLUCOSE Neg KETONES Moderate UROBILINOGEN Moderate BILIRUBIN Moderate BLOOD Moderate Test, Urine Reviewed date:05/09/2024 12:04:52 PM Interpretation: Performing Lab: Notes/Report: Test, Urine Negative PDF Report Reviewed date:03/08/2024 07:53:52 AM Interpretation: Performing Lab:Colette Mcneal, [address], [address], [place], Phone - [phone], [facility]/Report: Clinical Information:[id number] LMP / Prev Treat...ZXG=[id number] Dates / Results....11/28/20 NIL No. of containers..01 ThinPrep Vial [id number] IGP, CtNg Culture 30 Plus Reviewed date:03/08/2024 07:54:10 AM Interpretation: Performing Lab:[facility] [place], [address], [address], [place], Phone - [phone], Director - [facility] Notes/Report: Clinical Information:[id number] LMP / Prev Treat...BAQ=[id number] Dates / Results....11/28/20 NIL No. of containers..01 ThinPrep Vial DIAGNOSIS: NEGATIVE FOR INTRAEPITHELIAL LESION OR MALIGNANCY. Specimen adequacy: Satisfactory for evaluation. Endocervical and/or squamous metaplastic cells (endocervical component) are present. Clinician provided ICD10: Z01.419 Z72.51 Performed by: Evelyne hodges, Director Of Procurement (ASCP) . . Note: The Pap smear is a screening test designed to aid in the detection of premalignant and malignant conditions of the uterine cervix. It is not a diagnostic procedure and should not be used as the sole means of detecting cervical cancer. Both false-positive and false-negative reports do occur. . Test Methodology: This liquid based ThinPrep(R) pap test was screened with the use of an image guided system. HPV Aptima Negative Negative This nucleic acid amplification test detects fourteen high-risk HPV types (16,18,31,33,35,39,45,51, 52,56,58,59,66,68) without differentiation. HPV Genotype Reflex Criteria not met, HPV Genotype not performed. Chlamydia, Nuc. Acid Amp Negative Negative Gonococcus, Nuc. Acid Amp Negative Negative Urinalysis Reviewed date:03/02/2024 01:03:49 PM Interpretation: Performing Lab: Notes/Report: PH 5.0 PROTEIN Neg GLUCOSE Neg BLOOD Neg Test, Urine Reviewed date:10/05/2023 11:42:20 AM Interpretation: Performing Lab: Notes/Report: Test, Urine Negative Reason For Referral No Information Medications Medication SIG (Take, Route, Frequency, Duration) Notes Start Date End Date Status Norethindrone Acetate 5 MG 1 tablet Oral ly EVERY 6 HRS D1, Q 6 HRS D2, TWICE DAILY FOR 14 DAYS for 30 days 05/09/2024 Active Bactrim DS 800-160 MG 1 tablet Orally TW ICE A DAY for 7 days 05/09/2024 Active Augmentin 500-125 MG 1 tablet Orally Twi ce a day for 7 days 05/11/2024 Active Multi-Vitamin - 1 tablet Orally Once a day for 30 day(s) Active miSOPROStol 200 MCG 2 Orally night befor e procedure for 1 days 05/10/2024 Active Immunizations Vaccine Route Administration Date Status Comme nts HPV (human papillomavirus), quadrivalent, 3 dose schedule Intramuscular 12/24/2013 Pending HPV (human papillomavirus), quadrivalent, 3 dose schedule Intramuscular 02/24/2014 Pending HPV (human papillomavirus), quadrivalent, 3 dose schedule Intramuscular 06/26/2014 Pending Social History Tobacco Use: Social History Observation Description Date Details (start date - stop date) Never Smoker NA - NA AUDIT-C (Standard) Question Answer Notes Did you have a drink contain ing alcohol in the past year? Yes How often did you have six o r more drinks on one occasion in the past year? Never (0 point) How many drinks did you have on a typical day when you were drinking in the past year? 1 or 2 drinks (0 point) How often did you have a dri nk containing alcohol in the past year? Monthly or less (1 point) Points 1 Interpretation Negative Tobacco Control (Standard) Question Answer Notes Tobacco use: Nonsmoker Problems Problem Type SNOMED Code ICD Code Onset Dates Problem Status W/U Status Risk Notes Problem Contraception care education (037562561) Encounter for other general counseling and advice on contraception (Z30.09) Active confirmed Problem Morbid obesity (disorder) (009115114) Morbid (severe) obesity due to excess calories (E66.01) Active confirmed Problem Amenorrhea (46940975) Amenorrhea, unspecified (N91.2) Active confirmed Problem Irregular Menstruation (22965360) Other specified irregular menstruation (N92.5) Active confirmed Problem Abnormal vaginal bleeding (404063891) Other specified abnormal uterine and vaginal bleeding (N93.8) Active confirmed Problem Calculus of kidney (34288874) Calculus of kidney (592.0) Active confirmed Major Problem Gynecological examination normal (343439665940074) Routine gynecological examination (V72.31) Active confirmed Major Vital Signs Temperature 98.1 degrees Fahrenheit 05/09/2024 Blood pressure diastolic 68 mm Hg 05/09/2024 Height 63.5 in 05/09/2024 Blood pressure systolic 108 mm Hg 05/09/2024 Weight 132 lbs 05/09/2024 BMI 23.01 kg/m2 05/09/2024 Encounters Encounter Location Date Provider Diagnosis [facility] [address] [facility] [address] [place] [address] 10/05/2023 Cher Anderson Encounter for insertion of intrauterine contraceptive device Z30.430 [facility] [address] [facility] [address] [place] [address] 03/02/2024 Cher Anderson Encounter for gynecological examination (general) (routine) without abnormal findings Z01.419 ; High risk heterosexual behavior Z72.51 ; Encounter for surveillance of contraceptives, unspecified Z30.40 and Other specified counseling Z71.89 [facility] [place] [address] [place] [address] 05/09/2024 Cher Anderson Other specified abnormal uterine and vaginal bleeding N93.8 and Urinary tract infection, site not specified N39.0 [facility] [address] [address] [place] [address] 05/10/2024 [facility] [address] [facility] [address] [place] [address] 10/05/2023 Cher Emanuelva [facility] [address] [place] [address] 03/02/2024 Cher Gonzalezueva [facility] [address] [place] [address] 05/09/2024 Cher Gonzalezueva [facility] [address] [facility] [address] [place] [address] 05/11/2024 Cher Anderson [facility] [address] [facility] [address] [place] [address] 05/30/2024 Cheremani Anderson Urinary tract infection, site not specified N39.[address] [place] [address] 06/02/2024 Cher Anderson Urgency of urination R39.15 Assessments Encounter Date Diagnosis (ICD Code) Assessment Notes Treatment Notes Treatment Clinical Notes Section Notes 10/05/2023 Encounter for insertion of intrauterine contraceptive device (ICD-10 - Z30.430) DISCUSSED DIFFICULTY IN INSERTING CERVICAL DILATORS INTO THE ENDOMETRIAL CAVITY. THE INTERNAL CERVICAL OS WAS STENOTIC. ADVISED PAT TO HAVE IUD INSERTION DONE UNDER ANESTHESIA IN THE DAY STAY UNIT. THIS WILL BE A LOT SAFER AND LESS PAINFUL AND TRAUMATIC. WILL REFER HER TO DR KELLEY. 03/02/2024 Encounter for gynecological examination (general) (routine) without abnormal findings (ICD-10 - Z01.419) PAP TEST WITH HPV TYPING WAS OBTAINED. 05/09/2024 Other specified abnormal uterine and vaginal bleeding (ICD-10 - N93.8) DISCUSSED COMMON CAUSES OF PROLONGED MENSTRUAL BLEEDING INCLUDING CHRONIC ANOVULATION. SERUM PREG TEST WAS ORDERED. IF NEGATIVE, START AYGESTIN TAPER AND DETAILED INSTRUCTIONS WERE GIVEN. WARNED HER ABOUT HEAVY BLEEDING AFTER STOPPING THE MEDICATION START OC'S THE THURSDAY AFTER SHE STARTS TO BLEED. DETAILED INSTRUCTIONS WERE GIVEN PAT WILL CALL US WITH THE OCP SHE WANTS TO TRY. 05/30/2024 Urinary tract infection, site not specified (ICD-10 - N39.0) 06/02/2024 Urgency of urination (ICD-10 - R39.15) 03/02/2024 High risk heterosexual behavior (ICD-10 - Z72.51) GC & CHLAMYDIA TESTS WITH PAP SMEAR. OFFERED SERUM STD TESTS, PAT REFUSED. 05/09/2024 Urinary tract infection, site not specified (ICD-10 - N39.0) OFFICIAL UA AND URINE C/S INCREASE FLUID INTAKE. RX AND INSTRUCTIONS FOR BACTRIM DS WERE GIVEN. 03/02/2024 Encounter for surveillance of contraceptives, unspecified (ICD-10 - Z30.40) DISCUSSED NEED FOR EFFICIENT CONTRACEPTION. DISCUSSED NEXPLANON. 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 ADVISED THE PAT TO SHOW THEM THE NEXPLANON BOOKLET SHE WAS GIVEN. THE DOSE OF PROGESTIN IS VERY SMALL AND PAT SHOULD NOT GAIN WEIGHT WITH THIS CONTRACEPTIVE OPTION. IF THIS IS APPROVED, PAT WILL CALL US AND WE WILL SCHEDULE A CONSULTATION APPT WITH DR SALMON. 03/02/2024 Other specified counseling (ICD-10 - Z71.89) SAFE SEX AND CAREFUL PARTNER SELECTION WERE DISCUSSED. Plan Of Treatment Pending Test Test Name Order Date Urinalysis 12/31/2017 Urinalysis 02/26/2022 Ultrasound : Pelvic 10/13/2016 THIN PREP,HPV IF ASCUS, CT/GC (21-29YR) 12/31/2017 Urinalysis, Complete-[id number] 06/02/2024 Urine Culture, Routine-[id number] 06/02/2024 Next Appt Details Provider Name:Cher Gonzalez michellelinwood, 03/06/2025 09:00:00 AM, [address] [facility], [address], [place], [address], Insurance Providers Payer Name Payer Address Payer Phone Subscriber Number Group Number Insured Name Patient Relationship to Insured Coverage Start Date Coverage End Date [facility] [address] [place] [address] [id number] EILEEN PILLAI Self - patient is the insured Medical (General) History Medical History History ICD Code Calculus of kidney N20.0 Amenorrhea, unspecified N91.2 Other specified irregular menstruation N 92.5 Morbid (severe) obesity due to excess ca lories E66.01 Superficial mycosis, unspecified B36.9 Abscess of the breast and nipple N61.1 Surgical History Surgery Date(Month/Year) Kidney Stone Extraction LT Breast Abcess 10/2017 Bariatric Surgery 12/2022 Hospitalization History Reason Date(Month/Year) See Surgical Hx
--- OUTSIDE RECORDS SUMMARY | 2024-09-23 08:55 | XMS_ITS | Clinical Summary ---
Author Organization [employer] Address [address] [place] [address] Care Team Providers Care Spanish Speaking Babysitter Name Role Phone Unavailable Primary Care Provider Unavailabl e Immunizations Name Administration Dates Next Due Influenza, Quad Single Dose PF 0.5mL 6+Mo 2021 Social History Tobacco Use Types Packs/Day Years Used Date Smoking Tobacco: Never Assessed Comments Unknown Sex and Gender Information Value Date Recorded Sex Assigned at Not on file Legal Sex Female 3:37 AM MST Gender Identity Not on file Sexual Orientation Not on file Plan of Treatment Health Maintenance Due Date Last Done Comments Hepatitis C Screening 1992 PHQ-9 Depression Screen 2004 Annual Preventive Exam 2010 MARCY-7 Anxiety Screen 2010 DTaP,Tdap,and Td Vaccines (1 - Tdap) 10/28/2011 Cervical Cancer Screening (Pap/HPV) 2013 COVID-19 Vaccine ( season) 2024 Influenza Vaccine (Season Ended) 2025 03/31/20 RSV Vaccine (SCDM) (1 - 1-dose 75+ series) 10/28/[address] [place] [id number] [employer]
--- OUTSIDE RECORDS SUMMARY | 2024-09-23 08:55 | XMS_ITS ---
Author Organization [facility] Address [address] [facility] [address] [place] [address] Care Team Providers Care Head Of Research & Insights Name Role Phone SHERRILL JAMISON Primary Care Provider UnavailCher Jarrett Unavailable [phone] Results Component Value Reference Range Notes Urinalysis, Complete-[id number] Reviewed date:06/02/2024 08:03:26 AM Interpretation: Performing Lab:[facility] [place], [facility], Phone - [phone], Director - Amos Notes/Report: Clinical Information:LEONARDO UTI SRC:UC Clinical Information:LEONARDO UTI SRC:UC Specific [place] 1.020 1.005-1.030 pH 6.5 5.0-7.5 Urine-Color Yellow [...] N/A Bacteria Many None seen/Few Urine Culture, Routine-[id number] Reviewed date:06/02/2024 02:20:45 PM Interpretation: Performing Lab:[facility], [address] [facility], [place], Phone - [phone], Director - Amos Notes/Report: Clinical Information:LEONARDO UTI SRC:UC Clinical Information:LEONARDO UTI SRC:UC Urine Culture, Routine Final report Result 1 Mixed urogenital karyna 50,000-100,000 colony forming units per mL PDF Report Reviewed date:06/02/2024 08:01:52 AM Interpretation: Performing Lab:Co[facility] Boswell, [address] [facility], [place], Phone - [phone], Director - Amos Notes/Report: Clinical Information:LEONARDO UTI SRC:UC REASON FOR VISIT STILL FEELS LIKE UTI Encounters Encounter Location Date Provider Diagnosis [facility] [employer] [facility] [address] [place] [address] 05/30/2024 Cher Anderson Urinary tract infection, site not specified N39.0 Assessments Encounter Date Diagnosis (ICD Code) Assessment Notes Treatment Notes Treatment Clinical Notes Section Notes 05/30/2024 Urinary tract infection, site not specified (ICD-10 - N39.0) Plan Of Treatment Next Appt Details Provider Name:Cher Gonzalez michellelinwood, 03/06/2025 09:00:00 AM, [address], [address], [place], [address], Progress Notes * EILEEN PILLAIDOB:1990 (33 yo F)Acc No.[id number]:05/30/2024 Patient:?EILEEN PILLAI :1990???Age:33 Y???Sex:Female Address:[address] [place] [address], [place], [address] Subjective: * Chief Complaints: * ???STILL FEELS LIKE UTI * Medical History:? * Surgical History:? * Hospitalization/Major Diagno stic Procedure:? * Medications:? Objective: * Vitals:? * Physical Examination:? Assessment: * Assessment: 1.?Urinary tract infection, site not specified - N39.0??? Plan: * Treatment: ? Value Reference Range ?Specific [place] 1.020 1.005- 1.030 - * ?pH 6.5 5.0-7.5 - * ?Urine-Color Yellow Yellow - * ?Appearance Clear Clear - * ?WBC Esterase Negative Negative - * ?Protein Negative Negative/Trace - * ?Glucose Negative Negative - * ?Ketones Negative Negative - * ?Occult Blood Negative Negative - * ?Bilirubin Negative Negative - * ?Urobilinogen,Semi-Qn 1.0 0. 2-1.0 - mg/dL * ?Nitrite, Urine Positive A Negative - * ?Microscopic Examination See below: - * ?WBC 6-10 A 0 - 5 - /hpf * ?RBC 0-2 0 - 2 - /hpf * ?Epithelial Cells (non renal) >10 A 0 - 10 - /hpf * ?Casts None seen None seen - /lp f * ?Crystals Present A N/A - * ?Crystal Type Calcium Oxalate N/A - * ?Bacteria Many A None seen/Few - * LEONARDO UTI ?LAB: Urine Culture, Routine-[id number] (Collection Date & Time - 05/31/2024 11:08 AM)* ? Value Reference Range ?Urine Culture, Routine Final report - * LEONARDO UTIJustinCher 1 08/03/2023 08:02:38 AM EST >PLS INFORM PAT THAT LEONARDO IS CONTAMINATED. REPEAT URINE C/S. PLS INSTRUCT PAT ON HOW TO COLLECT CLEAN CATCH. CLEAN WELL, GET MIDPORTION OF URINE FLOW. LOREN RODAS 06/02/2024 02:20:04 PM EST > Patient advised. Instructions given. She will repeat urine later on today. Order sent. Patient has a hx of kidney issues. * Labs:? * ?Lab: PDF Report (Colle tion Date & Time - 05/31/2024 11:08 AM) * Procedure Codes:? * true * Date:? Generated for Printi ng/Faradhag/eTransmitting on:?09/23/2024 08:55 AM EDT
== END 2024-09-23 10:38 | disposition home or self-care (01) ==
LOC: HO.HMCC 08:46
PROVIDERS: PCP Internal Medicine; Visit Provider Internal Medicine
DX: Z23 Encounter for immunization (principal); Z00.00 Encounter for general adult medical examination without abnormal findings

== ENCOUNTER → 2024-09-23 08:45 | Outpatient (BNVA) | payer OTHER, SELFPAY | PROVIDERS: PCP Internal Medicine; Visit Provider Internal Medicine | DX: Z00.00 Encounter for general adult medical examination without abnormal findings (principal); Z23 Encounter for immunization | CPT/HCPCS: 90471; 90715; 96127 ==

== ENCOUNTER 2024-10-05 08:03 | Outpatient (AMB) | payer OTHER, SELFPAY ==
--- OUTSIDE RECORDS SUMMARY | 2024-10-05 08:10 | XMS_ITS ---
Author Organization [facility] Address [address] [facility] [address] [place] [address] Care Team Providers Care Supervisor Garage Name Role Phone SHERRILL JAMISON Primary Care Provider UnavailCher Jarrett Unavailable [phone] Results Component Value Reference Range Notes Urinalysis, Complete-[id number] Reviewed date:06/02/2024 08:03:26 AM Interpretation: Performing Lab:[facility] [place], [facility], Phone - [phone], Director - Amos Notes/Report: Clinical Information:LEONARDO UTI SRC:UC Clinical Information:LEONARDO UTI SRC:UC Specific Ponce 1.020 1.005-1.030 pH 6.5 5.0-7.5 Urine-Color Yellow [...] N/A Bacteria Many None seen/Few Urine Culture, Routine-[id number] 7 Reviewed date:06/02/2024 02:20:45 PM Interpretation: Performing Lab:[facility] [place], [address] [facility], [place], Phone - [phone], Director - Amos Notes/Report: Clinical Information:LEONARDO UTI SRC:UC Clinical Information:LEONARDO UTI SRC:UC Urine Culture, Routine Final report Result 1 Mixed urogenital karyna 50,000-100,000 colony forming units per mL PDF Report Reviewed date:06/02/2024 08:01:52 AM Interpretation: Performing Lab:[facility], [address] [facility], [place], Phone - [phone], Director - Amos Notes/Report: Clinical Information:LEONARDO UTI SRC:UC REASON FOR VISIT STILL FEELS LIKE UTI Encounters Encounter Location Date Provider Diagnosis [facility] [address] [place] [address] 05/30/2024 Cher Anderson Urinary tract infection, site not specified N39.0 Assessments Encounter Date Diagnosis (ICD Code) Assessment Notes Treatment Notes Treatment Clinical Notes Section Notes 05/30/2024 Urinary tract infection, site not specified (ICD-10 - N39.0) Plan Of Treatment Next Appt Details Provider Name:Cher Gonzalez [place]hel[place], 03/06/2025 09:00:00 AM, [address], [address], [place], [address], Progress Notes * EILEEN PILLAIDOB:1990 (33 yo F)Acc No.[id number]:05/30/2024 Patient:?EILEEN PILLAI :1990???Age:33 Y???Sex:Female Address:[address] [place] [address], [place], [address] Subjective: * Chief Complaints: * ???STILL FEELS LIKE UTI * Medical History:? * Surgical History:? * Hospitalization/Major Diagno stic Procedure:? * Medications:? Objective: * Vitals:? * Physical Examination:? Assessment: * Assessment: 1.?Urinary tract infection, site not specified - N39.0??? Plan: * Treatment: ? Value Reference Range ?Specific Ponce 1.020 1.005- 1.030 - * ?pH 6.5 [...] - * LEONARDO UTI ?LAB: Urine Culture, Routine-[id number] (Collection Date & Time - 05/31/2024 11:08 [...] true * Date:? Generated for Printi ng/Faradhag/eTransmitting on:?10/05/2024 08:10 AM EDT
--- OUTSIDE RECORDS SUMMARY | 2024-10-05 08:10 | XMS_ITS ---
Author Organization [facility] Address [address] [place] [address] Care Team Providers Care Director Business Development Name Role Phone SHERRILL JAMISON Primary Care Provider Cher Velasquez [phone] Medications Medication SIG (Take, Route, Fr equency, Duration) Notes Start Date End Date Status Augmentin 500-125 MG 1 tablet Orally Twi ce a day for 7 days 05/11/2024 Active Encounters Encounter Location Date Provider Diagnosis [facility] [employer] [address] [address] 05/11/2024 Cher Anderson Plan Of Treatment Medication Medication Name Sig Start Date Stop Date Notes Augmentin 500-125 MG 1 tablet Orally Twi ce a day for 7 days 05/11/2024 Next Appt Details Provider Name:Cher pascual, 03/06/2025 09:00:00 AM, [address] [place] [address], [address], [place], [address], Progress Notes * ROSAS EILEENDOB:1990 (33 yo F)Acc No.[id number]:05/11/2024 Patient:?EILEEN PILLAI :1990???Age:33 Y???Sex:Female Address:[address] [place] [address], [place], [address] * Refills? Start Augmentin Tablet, 500-125 MG, Orally, 14 Tablet, 1 tablet, Twice a day, 7 days, Refills=0 * true * Date:? Generated for Miguel jordan/Sergey/Gayle on:?10/05/2024 08:10 AM EDT
--- OUTSIDE RECORDS SUMMARY | 2024-10-05 08:10 | XMS_ITS ---
Author Organization [facility] Address [address] [place] [address] [address] [place] [address] Care Team Providers Care Heater Helper Name Role Phone SHERRILL JAMISON Primary Care Provider Cher Velasquez Unavailable [phone] REASON FOR VISIT Urine Order Encounters Encounter Location Date Provider Diagnosis [facility] [place] Self Representation Document Preparation [address] [address] 06/02/2024 Cher Anderson Urgency of urination R39.15 Assessments Encounter Date Diagnosis (ICD Code) Assessment Notes Treatment Notes Treatment Clinical Notes Section Notes 06/02/2024 Urgency of urination (ICD-10 - R39.15) Plan Of Treatment Pending Test Test Name Order Date Urinalysis, Complete-[id number] 06/02/2024 Urine Culture, Routine-[id number] 06/02/2024 Next Appt Details Provider Name:Cher pascual, 03/06/2025 09:00:00 AM, [address] [place] [address], [address], [place], [address], Progress Notes * EILEEN PILLAIDOB:1990 (33 yo F)Acc No.[id number]:06/02/2024 Patient:?ROSASCLIVEYN :1990???Age:33 Y???Sex:Female Address:[address] [place] [address], [address] Subjective: * Chief Complaints: * ???Urine Order * Medical History:? * Surgical History:? * Hospitalization/Major Diagno stic Procedure:? * Medications:? Objective: * Vitals:? * Physical Examination:? Assessment: * Assessment: 1.?Urgency of urination - R3 9.15??? Plan: * Treatment: * Procedure Codes:? * true * Date:? Generated for Miguel jordan/Sergey/Gayle on:?10/05/2024 08:10 AM EDT
--- OUTSIDE RECORDS SUMMARY | 2024-10-05 08:10 | XMS_ITS | Clinical Summary ---
Author Organization [facility] Address [address] [place] [address] Care Team Providers Care Exhibitions Curator Name Role Phone Unavailable Primary Care Provider [...] Cancer Screening (Pap/HPV) 2013 COVID-19 Vaccine ( - 2023- season) 2024 Influenza Vaccine (Season Ended) 2025 03/31/20 RSV Vaccine (SCDM) (1 - 1-dose 75+ series) 10/28/2067 [place] [phone] [employer]
--- OUTSIDE RECORDS SUMMARY | 2024-10-05 08:10 | XMS_ITS | Patient Health Record ---
Author Organization [facility] Address [address] [facility] [address] [place] [address] Care Team Providers Care Rural Health Consultant Name Role Phone SHERRILL JAMISON Primary Care Provider UnavailCher Jarrett Unavailable [phone] Allergies No Known Allergies Results Component Value Reference Range Notes Urinalysis Reviewed date:03/02/2024 01:03:49 PM Interpretation: Performing Lab: Notes/Report: PH 5.0 PROTEIN Neg GLUCOSE Neg BLOOD Neg 277554-Kot IGP, CtNg Culture 30 Plus Reviewed date:03/08/2024 07:54:10 AM Interpretation: Performing Lab:[facility], [address], [address], [place], Phone - [phone], Director - [facility] Notes/Report: Clinical Information:[id number] LMP / Prev Treat...MFQ=[id number] Dates / Results....11/28/20 NIL No. of containers..01 ThinPrep Vial DIAGNOSIS: NEGATIVE FOR INTRAEPITHELIAL LESION OR MALIGNANCY. Specimen adequacy: Satisfactory for evaluation. Endocervical and/or squamous metaplastic cells (endocervical component) are present. Clinician provided ICD10: Z01.419 Z72.51 Performed by: Evelyne hodges, Box Shook Patcher (ASCP) . . Note: The Pap smear [...] 07:53:52 AM Interpretation: Performing Lab:[facility]neal, [address], [address], [place], Phone - [phone], Director - [place] Notes/Report: Clinical Information:[id number] LMP / Prev Treat...YXC=[id number] Dates / Results....11/28/20 NIL No. of containers..01 ThinPrep Vial PDF Report Reviewed date:05/10/2024 08:02:50 AM Interpretation: Performing Lab:[facility]well, [address] [facility], Phone - [phone], Director Baljit Trinidad Notes/Report: PDF Report Reviewed date:05/10/2024 08:02:58 AM Interpretation: Performing Lab:[facility], [address] [place] [address], Phone - [phone], - Alexander Notes/Report: PDF Report Reviewed date:05/11/2024 12:33:09 PM Interpretation: Performing Lab:[facility], [address] [place] [address], Phone - [phone], Director Baljit Trinidad Notes/Report: Urine Culture, Routine-[id number] Reviewed date:05/11/2024 12:38:46 PM Interpretation: Performing Lab:[facility] [place], [address] [facility], Phone - [phone], Director Baljit Trinidad Notes/Report: Urine Culture, Routine Final report Result [...] Tobramycin S Trimethoprim/Sulfa R CBC With Differential/Platel et-[id number] Reviewed date:05/10/2024 08:03:15 AM Interpretation: Performing Lab:[facility] [place], [address] [place] [address] Avenue, [place], Phone - [phone], Director - Amos Notes/Report: WBC 9.2 3.4-10.8 x10E3/uL Effective May 16, 2024 profile 413530 WBC will be made non-orderable as a [...] Grans (Abs) 0.1 0.0-0.1 x10E3/uL hCG,Beta Subunit, Qnt-[id number] Reviewed date:05/10/2024 08:10:04 AM Interpretation: Performing Lab:[facility], [address] [place] [address], Phone - [phone], Director - Alexander Notes/Report: hCG,Beta Subunit,Qnt,Serum <1 <5 MIU/ML Males [...] loss, preeclampsia, delivery and growth restriction. Urinalysis, Complete-[id number] Reviewed date:05/11/2024 12:39:20 PM Interpretation: Performing Lab:[facility], [address] [place] [address], [place], Phone - [phone], Director - Amos Notes/Report: Specific Wynona 1.020 1.005-1.030 pH 6.0 5.0-7.5 Urine-Color Yellow [...] Interpretation: Performing Lab: Notes/Report: Test, Urine Negative Urinalysis, Complete-[id number] Reviewed date:06/02/2024 08:03:26 AM Interpretation: Performing Lab:[facility] [place], [address] [place] [address], Phone - [phone], Director - Amos Notes/Report: Clinical Information:LEONARDO UTI SRC:UC Clinical Information:LEONARDO UTI SRC:UC Specific Wynona 1.020 1.005-1.030 pH 6.5 5.0-7.5 Urine-Color Yellow [...] N/A Bacteria Many None seen/Few Urine Culture, Routine-[id number] Reviewed date:06/02/2024 02:20:45 PM Interpretation: Performing Lab:[facility], [address] [place] [address], Phone - [phone], Director - Amos Notes/Report: Clinical Information:LEONARDO UTI SRC:UC Clinical Information:LEONARDO UTI SRC:UC Urine Culture, Routine Final report Result 1 Mixed urogenital karyna 50,000-100,000 colony forming units per mL PDF Report Reviewed date:06/02/2024 08:01:52 AM Interpretation: Performing Lab:[facility], [address] [place] [address], Phone - [phone], Director - Amos Notes/Report: Clinical Information:LEONARDO UTI SRC:UC Reason For Referral No Information Medications Medication [...] Status Risk Notes Problem Contraception care education (236230437) Encounter for other general counseling and advice on contraception (Z30.09) Active confirmed Problem Morbid obesity (disorder) (613281058) Morbid (severe) obesity due to excess calories (E66.01) Active confirmed Problem Amenorrhea (74507090) Amenorrhea, unspecified (N91.2) Active confirmed Problem Irregular Menstruation (26767387) Other specified irregular menstruation (N92.5) Active confirmed Problem Abnormal vaginal bleeding (900018171) Other specified abnormal uterine and vaginal bleeding (N93.8) Active confirmed Problem Calculus of kidney (68626162) Calculus of kidney (592.0) Active confirmed Major Problem Gynecological examination normal (565975913134774) Routine gynecological examination (V72.31) Active confirmed Major Vital Signs Temperature 98.1 degrees Fahrenheit 05/09/2024 Blood pressure diastolic 68 mm Hg 05/09/2024 Height 63.5 in 05/09/2024 Blood pressure systolic 108 mm Hg 05/09/2024 Weight 132 lbs 05/09/2024 BMI 23.01 kg/m2 05/09/2024 Encounters Encounter Location Date Provider Diagnosis [place] [address] [place] [address] 03/02/2024 Cher Emanuelva Encounter for gynecological examination (general) (routine) without abnormal findings Z01.419 ; High risk heterosexual behavior Z72.51 ; Encounter for surveillance of contraceptives, unspecified Z30.40 and Other specified counseling Z71.89 [facility] [address] [address] 05/09/2024 Cher Anderson Other specified abnormal uterine and vaginal bleeding N93.8 and Urinary tract infection, site not specified N39.[address] [facility] [address] [address] 05/10/2024 Cher Anderson Total [address] [facility] [address] [address] 03/02/2024 Cher Anderson Total [address] [address] 05/09/2024 Cher Anderson Total [address] [facility] [address] [address] 05/11/2024 Cher Anderson Total [address] [address] 05/30/2024 Cher Anderson Urinary tract infection, site not specified N39.0 [facility] [address] [facility] [address] [address] 06/02/2024 Cher Anderson Urgency of urination R39.15 Assessments Encounter Date Diagnosis (ICD Code) Assessment Notes Treatment Notes Treatment Clinical Notes Section Notes 06/02/2024 Urgency of urination (ICD-10 - R39.15) 03/02/2024 Encounter for gynecological examination (general) (routine) without abnormal findings (ICD-10 - Z01.419) PAP TEST WITH HPV TYPING WAS OBTAINED. 05/30/2024 Urinary tract infection, site not specified (ICD-10 - N39.0) 05/09/2024 Other specified abnormal uterine and vaginal [...] WITH THE OCP SHE WANTS TO TRY. 05/09/2024 Urinary tract infection, site not specified [...] PREP,HPV IF ASCUS, CT/GC (21-29YR) 12/31/2017 Urinalysis, Complete-[id number] 06/02/2024 Urine Culture, Routine-[id number] 06/02/2024 Next Appt Details Provider Name:Cher pascual, 03/06/2025 09:00:00 AM, [address], [address], [place], [address], Insurance Providers Payer Name Payer Address Payer Phone Subscriber Number Group Number Insured Name Patient Relationship to Insured Coverage Start Date Coverage End Date [facility] [address] [facility] [place] [id number] EILEEN PILLAI Self - patient is [...]
--- NOTE | 2024-10-05 08:41 | MHC.OFFVISWM ---
VS Expanded 10/05/24 08:42 Height 5 ft 3 in Weight 127 lb BMI 22.5 Intake Visit Reasons: TV Pre Op Panniculectomy 10/12/24 Allergies No Known Allergies Allergy (Verified 10/05/24 08:42) Medication List - Last Reconciled 10/05/24 by Tanner Nicholson MD cephalexin 500 mg PO Q12H docusate sodium (Colace) 100 mg PO DAILY ondansetron 4 mg PO Q12H HPI HPI TV Pre Op Panniculectomy 10/12/24: Details: Start time: 8.05am, End time: 9.01am ?I spent 21 minutes speaking with the patient on the phone plus an additional 5 minutes reviewing and updating records for a total of 26 minutes HPI Comments Details: Overall weight loss: 110.8lbs, or 46.6% TBWL Is doing eggs with meat for breakfast, lunch and dinner One Protein bar Exercise: is doing r PFSH Medical History (Updated 10/05/24 @ 08:40 by Tanner Nicholson MD) Postgastrectomy malabsorption BMI 38.0-38.9,adult BMI 39.0-39.9,adult Viral illness Encounter for general adult medical examination with abnormal findings Morbid obesity due to excess calories PTSD (post-traumatic stress disorder) Manic depression History of kidney stones Surgical History S/P laparoscopic sleeve gastrectomy History of lithotripsy Family History Sister Substance use disorder Mental health disorder Brother Substance use disorder Mental health disorder Mother Substance use disorder Mental health disorder Father Substance use disorder Mental health disorder Other Patient unsure of family history Social History Household Members: None Household Members Other:: Parents Housing: Apartment Are you a primary home health care worker to a significant other at home: No Do you presently have visiting nurse or other home services: No Patient Tobacco Use Status: Never used Tobacco e-Cigarette/Vaping Use: Currently Using Substance Use Type: Marijuana service: No Current occupational status: employed Cognitive needs: No Hearing needs: No Vision needs: Yes Telehealth Telehealth Telehealth Platform: Telephone Location of provider rendering services: practice address Location of patient: address on file Patient Identification confirmed using: Name, : Yes Telehealth method: voice only Patient verbally consented to treatment: Yes Patient verbally consented to billing insurance company: Yes Patient informed of any privacy concerns related to visit: Yes Minutes spent on Phone/Video with Pt.: 26 Assessment & Plan Assessment & Plan (1) Excess skin: Code(s): L98.7 - Excessive and redundant skin and subcutaneous tissue Category: Medical Plan: 1. Plan for panniculectomy. Risks of infection, bleeding, asymmetry, wound dehiscence and blood clots were discussed with the patient. 2. You will have a drain the abdomen that may stay a few weeks before it may be removed 3. You will need to be doing sponge baths the first 1-2 weeks. No showers. You need to have help at home to get you up and limit your activities as much as possible for at least the 4-6 weeks after surgery 4. We will arrange for a visiting nurse to come at home to help you with dressing changes and send me pictures of the procedures. We will send at your home supplies for the dressing changes. 5. Change nutritional plan to one Orgain shake (HALF scoop in 8oz almond milk) at 9am-11am, one Fit Crunch protein bar (buy at [employer] or [employer]) at 12pm-2pm, one Orgain shake (HALF scoop in 8oz almond milk at 3pm-5pm, one meal at 6pm (6 forks of protein and 6 forks of salad or vegetables). If needed, do another HALF bar at 8pm-9pm if you feel hungry. This will improve weight loss and healing after surgery. 6. Continue all vitamins 7. Start the stool softener Colace and take one per day, daily 8. Do blood work fasting on Thursday10/07/24 and cigar packer and picker the three prescriptions from your pharmacy 9. Risks and complications were discussed the possibility of bleeding that may require transfusion, loss of the umbilicus, wound dehiscence or infection, dog ears , flap asymmetry. We also discussed the importance of strict avoidance of weight lifting. 10. Avoid aspirin, motrin, ibuprofen, Aleve, Advil, Naproxyn. Only Tylenol is OK Orders: Orders Comprehensive Met. Panel Today K91.2 - Postsurgical malabsorption, not elsewhere classified, Z90.3 - Acquired absence of stomach [part of] TSH reflex Free T4 Today K91.2 - Postsurgical malabsorption, not elsewhere classified, Z90.3 - Acquired absence of stomach [part of] Vitamin A Today K91.2 - Postsurgical malabsorption, not elsewhere classified, Z90.3 - Acquired absence of stomach [part of] Hemoglobin A1c Today K91.2 - Postsurgical malabsorption, not elsewhere classified, Z90.3 - Acquired absence of stomach [part of] Lipid Panel Today K91.2 - Postsurgical malabsorption, not elsewhere classified, Z90.3 - Acquired absence of stomach [part of] C Reactive Protein Today K91.2 - Postsurgical malabsorption, not elsewhere classified, Z90.3 - Acquired absence of stomach [part of] Partial Thromboplastin Time Today K91.2 - Postsurgical malabsorption, not elsewhere classified, Z90.3 - Acquired absence of stomach [part of] Complete Blood Count Auto Diff Today K91.2 - Postsurgical malabsorption, not elsewhere classified, Z90.3 - Acquired absence of stomach [part of] Insulin Today K91.2 - Postsurgical malabsorption, not elsewhere classified, Z90.3 - Acquired absence of stomach [part of] Prothrombin Time INR Today K91.2 - Postsurgical malabsorption, not elsewhere classified, Z90.3 - Acquired absence of stomach [part of] Vitamin B1 Today K91.2 - Postsurgical malabsorption, not elsewhere classified, Z90.3 - Acquired absence of stomach [part of] Type and Screen Today K91.2 - Postsurgical malabsorption, not elsewhere classified, Z90.3 - Acquired absence of stomach [part of] Vitamin B12 Today K91.2 - Postsurgical malabsorption, not elsewhere classified, Z90.3 - Acquired absence of stomach [part of] Vitamin D 25-OH Total Today K91.2 - Postsurgical malabsorption, not elsewhere classified, Z90.3 - Acquired absence of stomach [part of] Ferritin Today K91.2 - Postsurgical malabsorption, not elsewhere classified, Z90.3 - Acquired absence of stomach [part of] Zinc Today K91.2 - Postsurgical malabsorption, not elsewhere classified, Z90.3 - Acquired absence of stomach [part of] IRON PROFILE Today K91.2 - Postsurgical malabsorption, not elsewhere classified, Z90.3 - Acquired absence of stomach [part of] Medications: New cephalexin 500 mg PO Q12H 60 caps 2RF M79.3 - Panniculitis, unspecified ondansetron 4 mg PO Q12H 20 tabs 0RF nausea and vomiting R11.0 - Nausea docusate sodium (Colace) 100 mg PO DAILY 90 caps 0RF K59.00 - Constipation, unspecified
[2024-10-05 08:42] VITALS: BMI 22.5
== END 2024-10-05 09:02 | disposition home or self-care (01) ==
LOC: HO.HBS 08:03
PROVIDERS: PCP Internal Medicine; Visit Provider Surgery
DX: L98.7 Excessive and redundant skin and subcutaneous tissue (principal)
CPT/HCPCS: 99499

== ENCOUNTER → 2024-10-05 08:03 | Outpatient (BNVA) | payer OTHER, SELFPAY | PROVIDERS: PCP Internal Medicine; Visit Provider Surgery ==

== ENCOUNTER 2024-10-07 06:57 | Outpatient (REF) | payer OTHER, SELFPAY ==
--- OUTSIDE RECORDS SUMMARY | 2024-10-07 07:00 | XMS_ITS ---
Author Organization [facility] Address [address] [place] [address] [address] [place] [address] Care Team Providers Care Assistant Research Scientist Name Role Phone SHERRILL JAMISON Primary Care Provider Cher Velasquez Unavailable [phone] REASON FOR VISIT Urine Order Encounters Encounter Location Date Provider Diagnosis [facility] [address] [address] 06/02/2024 Cher Anderson Urgency of urination R39.15 Assessments Encounter Date Diagnosis (ICD Code) Assessment Notes Treatment Notes Treatment Clinical Notes Section Notes 06/02/2024 Urgency of urination (ICD-10 - R39.15) Plan Of Treatment Pending Test Test Name Order Date Urinalysis, Complete-[id number] 06/02/2024 Urine Culture, Routine-[id number] 06/02/2024 Next Appt Details Provider Name:Cher pascual, 03/06/2025 09:00:00 AM, [address] [place] [address], [address], [place], [address], Progress Notes * EILEEN PILLAIDOB:1990 (33 yo F)Acc No.[id number]:06/02/2024 Patient:?ROSASCLIVEYN :1990???Age:33 Y???Sex:Female Address:[address] [place] [address], [address] Subjective: * Chief Complaints: * ???Urine Order * Medical History:? * Surgical History:? * Hospitalization/Major Diagno stic Procedure:? * Medications:? Objective: * Vitals:? * Physical Examination:? Assessment: * Assessment: 1.?Urgency of urination - R3 9.15??? Plan: * Treatment: * Procedure Codes:? * true * Date:? Generated for Miguel jordan/Sergey/Gayle on:?10/07/2024 07:00 AM EDT
--- OUTSIDE RECORDS SUMMARY | 2024-10-07 07:00 | XMS_ITS ---
Author Organization [facility] Address [address] [place] [address] Care Team Providers Care Naturopathic Physician Name Role Phone SHERRILL JAMISON Primary Care Provider Cher Velasquez [phone] Medications Medication SIG (Take, Route, Fr equency, Duration) Notes Start Date End Date Status Augmentin 500-125 MG 1 tablet Orally Twi ce a day for 7 days 05/11/2024 Active Encounters Encounter Location Date Provider Diagnosis [facility] [address] [address] 05/11/2024 Cher Anderson Plan Of Treatment Medication Medication Name Sig Start Date Stop Date Notes Augmentin 500-125 MG 1 tablet Orally Twi ce a day for 7 days 05/11/2024 Next Appt Details Provider Name:Cher pascual, 03/06/2025 09:00:00 AM, [address] [place] [address], [address], [place], [address], Progress Notes * ROSAS EILEENDOB:1990 (33 yo F)Acc No.[id number]:05/11/2024 Patient:?EILEEN PILLAI :1990???Age:33 Y???Sex:Female Address:[address] [place] [address], [place], [address] * Refills? Start Augmentin Tablet, 500-125 MG, Orally, 14 Tablet, 1 tablet, Twice a day, 7 days, Refills=0 * true * Date:? Generated for Miguel jordan/Sergey/Gayle on:?10/07/2024 07:00 AM EDT
--- OUTSIDE RECORDS SUMMARY | 2024-10-07 07:00 | XMS_ITS | Data Portability ---
Author Organization [place] - [facility], [facility] Address [address] [place] [address] Assessment Encounter Date Assessment Date Assessment LastModified by Organization Details LastModified Time 10/10/2009 10/10/2009 SAMLL GANGLION CYST DBA_PATCH_ 801 Not available 01/13/2011 02:10:01 02/24/2011 02/24/2011 20 yo female with CP assoc with URI/fever - suboptimal exam of lungs due to pt discomfort, CXR ordered - Mom to go to [facility] and await call from me with results, if neg would have pt seen in ED to determine cause, if + pneumonia will Rx with abx kcamera Not available 02/24/2011 17:56:50 Plan of Treatment Reminders Order Date Submit Date Provider Last Modified By Organization Details Last Modified Time Details Appointments None recorded. Lab pulse oximetry lab 2010 011 [facility], [address] [place] [address], [phone], 3 03:09:40 Referral None recorded. Procedures None recorded. Surgeries None recorded. Imaging x-ray, chest - CP with deep inspiration - rule out pneumonia or other pathology 2010 011 [facility] Not available 3 03:09:40 Medication Orders None recorded. Patient TargetsNo targets recorded. Patient Instructions Encounter Date Encounter Id Patient Instructions Last Modified By Organization Details Last Modified Time 10/10/2009 [id number] Rx: NONE AT PRESENT --- WILL CALL AREA BECOMES TENDER OR LARGER IN SIZE -> THEN TO HAND SURGEON DBA_PATCH_ Not available 01/13/2011 02:08:16 10/31/2009 [id number] cont diet and exercise; weight goal for next year 160's; gardasil info given [id number] Not available 01/13/2011 02:08:55 Reason for Referral None Reported. Results Created Date Observation Date Name Description Value Unit Range Abnormal Flag Note LastModifiedBy Organization Detail LastModifiedTime 02/25/20 11 02/24/2011 pulse oxime try lab O2 Saturation 98 Not Available [facility] [address] [place] [address], [phone], 02/24/2011 17:32:10 02/25/20 11 02/24/2011 x-ray , chest No observ ation record ed. [address] [place], [place], [id number], 01/07/2013 03:09:40 Result Notes None recorded. Problems Name Problem SNOMED Code Status Onset Date Resolution Date Notes Provider Name and Address Organization Details Recorded Time Acute conjunctivi tis 86646959 Active 2008 Not Available [facility] 3 03:01:06 Abnormal weight gain 873933721 Active 2006 Not Available [facility] 3 03:01:06 Parent-chil d problem 74809515 Active adopted Not Available [facility] 3 03:01:06 Open wound 650017157 Active 2008 Not Available [facility] 3 03:01:06 Ganglion cyst of tendon sheath 24102072 Active Not Available [facility] 3 03:01:06 Chest pain 08868264 Active Not Available [facility] 3 03:01:06 Problem Notes None recorded. Procedures Surgical History Date Name Laterality Status Provider Name and Address Organization Details Recorded Time 06/15/2011 Urologic completed Jonathon Bradley MA - [facility] 07/28/2011 14:24:27 Imaging Results Imaging Date Name Status LastModified by Organiz ation Details LastModified Time 02/24/2011 x-ray, chest completed [address] [place], [place], [address], 01/07/2013 03:09:40 Procedure Notes None recorded. Medical [...] Details Last Updated DateTime 10/31/2009 162.56 cm 89903.81 134 g 31.2 kg/m2 114 mm[Hg] 62 mm[Hg] Mariely ware M.A. [facility] [place] [facility] 0 14:17:59 Social History Question Answer [...] virus, trivalent, preservative 1 completed Not Available [facility] 07/02/2019 02:35:17 Novel [id number], nasal 9 completed Not Available [facility] 07/02/2019 02:34:48 varicella 11/04/200 8 completed Not Available [facility] 04/19/2011 03:16:44 influenza, unspecified formulation 8 completed Not Available [facility] 04/19/2011 03:19:09 Influenza, split virus, trivalent, preservative 0 completed Not Available [facility] 07/02/2019 02:34:45 Tdap 0 completed Not Available [facility] 07/02/2019 02:33:40 meningococcal ACWY, unspecified formulation 6 completed Not Available [facility] 04/19/2011 03:17:38 varicella 6 completed Not Available [facility] 04/19/2011 03:17:38 Td(adult) unspecified formulation 4 completed Not Available [facility] 04/19/2011 03:19:09 Influenza, split virus, trivalent, preservative 0 completed Not Available [facility] 07/02/2019 02:35:07 Past Encounters Encounter ID Performer Location Encounter Start Date Encounter Closed Date Diagnosis/Indication Diagnosis SNOMED-CT Code Diagnosis ICD10 Code Diagnosis Note [id number] [facility] [address] [place] [address] [place] [id number] 12/30/2006 16:17:00 12/30/2006 16:51:47 [id number] [facility] [address] [place] [address] [place] [id number] 03/03/2007 15:38:38 03/03/2007 16:25:03 [id number] [facility] [address] [place] [address] [place] [address] 04/18/2008 11:05:40 04/18/2008 11:51:40 [id number] [facility] [address] [place] [address] [place] [id number] 06/12/2008 14:43:53 06/12/2008 15:00:56 [id number] [facility] [address] [place] [address] [place] [id number] 07/07/2008 13:56:01 07/07/2008 14:19:32 [id number] [facility] [address] [place] [address] [place] [id number] 08/13/2008 11:22:10 08/13/2008 12:03:42 [id number] [facility] [address] [place] [address] 08/15/2008 16:52:40 02/22/2009 01:23:50 [id number] [facility] [address] [place] [address] 10/10/2009 15:30:20 10/10/2009 16:29:57 [id number] [facility] [address] [place] W, B[place] [address] 10/31/2009 14:12:30 10/31/2009 16:01:33 [id number] [facility] [address] [place] [address] 02/24/2011 16:59:51 02/24/2011 17:43:05 Health Concerns [...] *SELF PAY* Sarahy Schwartz 10/10/2009 1 [employer] [id number] Abi Walkerel [id number] Abi Walkerel 10/31/2009 1 [employer] [id number] Abi Walkerel [id number] Abi Schwartz 02/24/2011 1 [employer] [id number] Abi Lincoln [id number] Abi Schwartz Notes Date Note Type Note Provider Name and Address Organization Details Recorded Time 10/31/2009 text/html ROS neg; LMP 1 month ago, regular, pos cramps (midol); neg VSD Jonathon flores MA - [facility] 10/31/2009 15:46:05 OBGyn Episode No OBEpisode recorded.
--- OUTSIDE RECORDS SUMMARY | 2024-10-07 07:00 | XMS_ITS ---
Author Organization [facility] Address [address] [facility] [address] [place] [address] Care Team Providers Care Rheumatology Nurse Name Role Phone SHERRILL JAMISON Primary Care Provider UnavailCher Jarrett Unavailable [phone] Results Component Value Reference Range Notes Urinalysis, Complete-[id number] Reviewed date:06/02/2024 08:03:26 AM Interpretation: Performing Lab:[facility] [place], [facility], Phone - [phone], Director - Amos Notes/Report: Clinical Information:LEONARDO UTI SRC:UC Clinical Information:LEONARDO UTI SRC:UC Specific [place] 1.020 1.005-1.030 pH 6.5 5.0-7.5 Urine-Color Yellow [...] N/A Bacteria Many None seen/Few Urine Culture, Routine-09912 7 Reviewed date:06/02/2024 02:20:45 PM Interpretation: Performing Lab:[facility] [place], [address] [facility], [place], Phone - [phone], Director - Amos Notes/Report: Clinical Information:LEONARDO UTI SRC:UC Clinical Information:LEONARDO UTI SRC:UC Urine Culture, Routine Final report Result 1 Mixed urogenital karyna 50,000-100,000 colony forming units per mL PDF Report Reviewed date:06/02/2024 08:01:52 AM Interpretation: Performing Lab:[facility], [address] [facility], [place], Phone - [phone], Director - Amos Notes/Report: Clinical Information:LEONARDO UTI SRC:UC REASON FOR VISIT STILL FEELS LIKE UTI Encounters Encounter Location Date Provider Diagnosis [facility] [address] [place] [address] 05/30/2024 Cher Anderson Urinary tract infection, site not specified N39.0 Assessments Encounter Date Diagnosis (ICD Code) Assessment Notes Treatment Notes Treatment Clinical Notes Section Notes 05/30/2024 Urinary tract infection, site not specified (ICD-10 - N39.0) Plan Of Treatment Next Appt Details Provider Name:Cher Gonzalez [facility], 03/06/2025 09:00:00 AM, [address], [place], [address], Progress Notes * EILEEN PILLAIDOB:1990 (33 yo F)Acc No.[id number]:05/30/2024 Patient:?EILEEN PILLAI :1990???Age:33 Y???Sex:Female Address:[address] [place] [address], [place], [address] Subjective: * Chief Complaints: * ???STILL FEELS LIKE UTI * Medical History:? * Surgical History:? * Hospitalization/Major Diagno stic Procedure:? * Medications:? Objective: * Vitals:? * Physical Examination:? Assessment: * Assessment: 1.?Urinary tract infection, site not specified - N39.0??? Plan: * Treatment: ? Value Reference Range ?Specific [place] 1.020 1.005- 1.030 - * ?pH 6.5 [...] - * LEONARDO UTI ?LAB: Urine Culture, Routine-[id number] (Collection Date & Time - 05/31/2024 11:08 [...] * true * Date:? Generated for Printi ng/Teving/eTransmitting on:?10/07/2024 06:59 AM EDT
--- OUTSIDE RECORDS SUMMARY | 2024-10-07 07:00 | XMS_ITS | Patient Health Record ---
Author Organization [facility] Address [address] [facility] [address] [place] [address] Care Team Providers Care Ssds Mk 2 Advanced Operator Name Role Phone SHERRILL JAMISON Primary Care Provider UnavailCher Jarrett Unavailable [phone] Allergies No Known Allergies Results Component Value Reference Range Notes PDF Report Reviewed date:05/11/2024 12:33:09 PM Interpretation: Performing Lab:[facility] [place], [address] [facility], Phone - [phone], Director - Amos Notes/Report: Urinalysis Reviewed date:03/02/2024 01:03:49 PM Interpretation: Performing Lab: Notes/Report: PH 5.0 PROTEIN Neg GLUCOSE Neg BLOOD Neg [id number] IGP, CtNg Culture 30 Plus Reviewed date:03/08/2024 07:54:10 AM Interpretation: Performing Lab:[facility] [place], [address] [facility], [address], [place], Phone - [phone], Director - [facility] Notes/Report: Clinical Information:[id number] LMP / Prev Treat...ILF=[id number] Dates / Results....11/28/20 NIL No. of containers..01 ThinPrep Vial DIAGNOSIS: NEGATIVE FOR INTRAEPITHELIAL LESION OR MALIGNANCY. Specimen adequacy: Satisfactory for evaluation. Endocervical and/or squamous metaplastic cells (endocervical component) are present. Clinician provided ICD10: Z01.419 Z72.51 Performed by: Evelyne hodges, Territory Manager General Sales (ASCP) . . Note: The Pap smear [...] Report Reviewed date:03/08/2024 07:53:52 AM Interpretation: Performing Lab:[facility], [address], [address], [place], Phone - [phone], Director - [facility] Notes/Report: Clinical Information:[id number] LMP / Prev Treat...HCJ=[id number] Dates / Results....11/28/20 NIL No. of containers..01 ThinPrep Vial Test, Urine Reviewed date:05/09/2024 12:04:52 PM Interpretation: Performing Lab: Notes/Report: Test, Urine Negative Urinalysis Reviewed date:05/09/2024 12:05:02 PM Interpretation: Performing Lab: Notes/Report: NITRITE Positive PH 5.0 PROTEIN Moderate S.G 1.015 WBC Large GLUCOSE Neg KETONES Moderate UROBILINOGEN Moderate BILIRUBIN Moderate BLOOD Moderate Urinalysis, Complete-[id number] Reviewed date:05/11/2024 12:39:20 PM Interpretation: Performing Lab:[facility] [place], [address] [facility], [place], Phone - [phone], Director - Amos Notes/Report: Specific [place] 1.020 1.005-1.030 pH 6.0 5.0-7.5 Urine-Color Yellow [...] /lpf Bacteria Many None seen/Few hCG,Beta Subunit, Qnt-[id number] Reviewed date:05/10/2024 08:10:04 AM Interpretation: Performing Lab:[facility], [address] [place] [address], Phone - [phone], [facility] Notes/Report: hCG,Beta Subunit,Qnt,Serum <1 [...] delivery and growth restriction. CBC With Differential/Platel et-[id number] Reviewed date:05/10/2024 08:03:15 AM Interpretation: Performing Lab:[facility], [address] [place] [address], [place], Phone - [phone], Director - Amos Notes/Report: WBC 9.2 3.4-10.8 x10E3/uL Effective May 16, 2024 profile 371480 WBC will be made non-orderable as a [...] Grans (Abs) 0.1 0.0-0.1 x10E3/uL Urine Culture, Routine-91901 7 Reviewed date:05/11/2024 12:38:46 PM Interpretation: Performing Lab:[facility], [address] [place] [address], Phone - [phone], Director - Amos Notes/Report: Urine Culture, Routine [...] S Tetracycline S Tobramycin S Trimethoprim/Sulfa R PDF Report Reviewed date:05/10/2024 08:02:58 AM Interpretation: Performing Lab:[facility], [address] [place] [address], Phone - [phone], Director - Alexander Notes/Report: PDF Report Reviewed date:05/10/2024 08:02:50 AM Interpretation: Performing Lab:[facility] [place], [address] [place] [address], Phone - [phone], Director - Amos Notes/Report: Urinalysis, Complete-[id number] Reviewed date:06/02/2024 08:03:26 AM Interpretation: Performing Lab:[facility] [place], [address] [place] [address], Phone - [phone], Director - Amos Notes/Report: Clinical Information:LEONARDO UTI SRC:UC Clinical Information:LEONARDO UTI SRC:UC Specific [place] 1.020 1.005-1.030 pH 6.5 5.0-7.5 Urine-Color Yellow [...] N/A Bacteria Many None seen/Few Urine Culture, Routine-59765 7 Reviewed date:06/02/2024 02:20:45 PM Interpretation: Performing Lab:[facility] [place], [address] [place] [address], Phone - [phone], Director - Amos Notes/Report: Clinical Information:LEONARDO UTI SRC:UC Clinical Information:LEONARDO UTI SRC:UC Urine Culture, Routine Final report Result 1 Mixed urogenital karyna 50,000-100,000 colony forming units per mL PDF Report Reviewed date:06/02/2024 08:01:52 AM Interpretation: Performing Lab:[facility] [place], [facility], Phone - [phone], Director - Amos Notes/Report: Clinical Information:LEONARDO UTI [...] Status Risk Notes Problem Contraception care education (301400093) Encounter for other general counseling and advice on contraception (Z30.09) Active confirmed Problem Morbid obesity (disorder) (052312686) Morbid (severe) obesity due to excess calories (E66.01) Active confirmed Problem Amenorrhea (29401460) Amenorrhea, unspecified (N91.2) Active confirmed Problem Irregular Menstruation (79710506) Other specified irregular menstruation (N92.5) Active confirmed Problem Abnormal vaginal bleeding (619125788) Other specified abnormal uterine and vaginal bleeding (N93.8) Active confirmed Problem Calculus of kidney (25790611) Calculus of kidney (592.0) Active confirmed Major Problem Gynecological examination normal (584792599942194) Routine gynecological examination (V72.31) Active confirmed Major Vital Signs Temperature 98.1 degrees Fahrenheit 05/09/2024 Blood pressure diastolic 68 mm Hg 05/09/2024 Height 63.5 in 05/09/2024 Blood pressure systolic 108 mm Hg 05/09/2024 Weight 132 lbs 05/09/2024 BMI 23.01 kg/m2 05/09/2024 Encounters Encounter Location Date Provider Diagnosis [facility] [address] [place] [address] 03/02/2024 Cher Anderson Encounter for gynecological examination (general) (routine) without abnormal findings Z01.419 ; High risk heterosexual behavior Z72.51 ; Encounter for surveillance of contraceptives, unspecified Z30.40 and Other specified counseling Z71.89 [facility] [address] [address] 05/09/2024 Cheremani Anderson Other specified abnormal uterine and vaginal bleeding N93.8 and Urinary tract infection, site not specified N39.[address] [place] [address] [address] 05/10/2024 Cheremani GonzalezAnderson [facility] [address] [place] [address] [address] 03/02/2024 Cher Anderson [facility] [address] [address] 05/09/2024 Cher Anderson [facility] [address] [place] [address] [address] 05/11/2024 Cher Anderson [facility] [address] [address] 05/30/2024 Cher Anderson Urinary tract infection, site not specified N39.0 [facility] [address] [address] 06/02/2024 Cheremani Emanuelva Urgency of urination R39.15 Assessments Encounter Date Diagnosis (ICD Code) Assessment Notes Treatment Notes Treatment Clinical Notes Section Notes 03/02/2024 Encounter for gynecological examination (general) (routine) [...] PREP,HPV IF ASCUS, CT/GC (21-29YR) 12/31/2017 Urinalysis, Complete-[id number] 06/02/2024 Urine Culture, Routine-[id number] 06/02/2024 Next Appt Details Provider Name:Cher pascual, 03/06/2025 09:00:00 AM, [address], [place], [address], Insurance Providers Payer Name Payer Address Payer Phone Subscriber Number Group Number Insured Name Patient Relationship to Insured Coverage Start Date Coverage End Date [facility] [address] [facility] [place] [id number] [phone] [id number] EILEEN PILLAI Self - patient is [...]
--- OUTSIDE RECORDS SUMMARY | 2024-10-07 07:00 | XMS_ITS | Clinical Summary ---
Author Organization [facility] Address [address] [place] [address] Care Team Providers Care Medical Records Tech Name Role Phone Unavailable Primary Care Provider [...] 1-dose 75+ series) 10/28/2067 [place] [phone] [employer]
[2024-10-07 07:24] LABS: MANUAL DIFF FLAG NO
[2024-10-07 07:44] LABS: Estimated Average Glucose 85 mg/dL; Hemoglobin A1C 93.7246 umol/L; Hemoglobin A1c % 4.6 % (<6.0); Total Hemoglobin (HGBA1C) 3545.2905 umol/L
[2024-10-07 07:45] LABS: INTERNATIONAL NORM RATIO 1.1 (0.9-1.1); Prothrombin Time 12.3 SEC (10.9-12.4)
[2024-10-07 07:47] LABS: Partial Thromboplastin Time 30.9 SEC (26.0-36.8)
[2024-10-07 07:57] LABS: Basophils Percent Auto 0.4 % (0-2); Eosinophils Absolute Auto 0.1 X10*3/uL (0.0-0.4); Eosinophils Percent Auto 1.7 % (0-4); Hematocrit 39.1 % (37.0-47.0); Hemoglobin 13.1 g/dl (12.0-16.0); Imm Gran Abs Auto 0.01 X10*3/uL (0.00-0.03); Imm Gran Pct Auto 0.2 % (0.0-0.4); Lymphocytes Absolute Auto 2.4 X10*3/uL (1.2-4.9); Lymphocytes Percent Auto 44.9 % (20-40); Mean Corpuscular HGB Conc 33.5 g/dl (31.0-35.0); Mean Corpuscular Hemoglobin 31.2 pg (27.0-33.0); Mean Corpuscular Volume 93.1 fL (80.0-98.0); Mean Platelet Volume 10.7 fL (9.4-12.3); Monocytes Absolute Auto 0.4 X10*3/uL (0.1-1.2); Monocytes Percent Auto 7.1 % (2-11); Neutrophils Absolute Auto 2.5 x10*3/uL (2.0-8.3); Neutrophils Percent Auto 45.7 % (45-73); Platelet Count 265 X10*3/uL (160-400); Red Cell Distribution Width 11.9 % (11.0-16.0); White Blood Count 5.4 X10*3/uL (4.8-10.8)
[2024-10-07 08:13] LABS: Alanine Aminotransferase 10 U/L (0-31); Alkaline Phosphatase 63 U/L (39-117); Anion Gap 10 (12-20); Aspartate Amino Transferase 21 U/L (5-31); Bilirubin Total 1.4 mg/dL (0.0-1.0); Blood Urea Nitrogen 16 mg/dL (9-16); Calcium 9.1 mg/dL (8.4-10.2); Carbon Dioxide 28 mmol/L (22-29); Chloride 105 mmol/L (96-108); Cholesterol 137 mg/dL (<200); Estimated Glomerular Filt Rate > 60; Glucose Random 85 mg/dL (60-115); HDL Cholesterol 63 mg/dL (>40); Iron 129 mcg/dL (30-160); LDL Cholesterol Calculated 64 mg/dL (<100); Percent Iron Saturation 46 % (15-50); Potassium 3.8 mmol/L (3.3-5.1); Sodium 139 mmol/L (135-145); Total Iron Binding Capacity 282 mcg/dL (228-428); Total Protein 7.1 g/dL (6.5-8.0); Triglycerides 50 mg/dL (<150); Unsaturated Iron Binding 153 ug/dL
[2024-10-07 08:30] LABS: Vitamin B12 452 pg/mL (200-900)
[2024-10-07 08:38] LABS: Ferritin 46 ng/mL (10-122); Insulin 4 uU/mL (2-29); TSH reflex Free T4 2.91 uIU/mL (0.32-4.0); Vitamin D 25-OH Total 30.8 ng/mL (>30)
[2024-10-10 17:33] LABS: Zinc 66 mcg/dL (60-130)
[2024-10-11 01:19] LABS: Vitamin A 48 mcg/dL (38-98)
[2024-10-15 16:28] LABS: Vitamin B1 9 nmol/L (8-30)
== END 2024-10-07 06:58 | disposition home or self-care (01) ==
LOC: HO.LAB 06:57
PROVIDERS: Absent Provider Physician Assistant Surgical; PCP Internal Medicine; Visit Provider Surgery
DX: K91.2 Postsurgical malabsorption, not elsewhere classified (principal); Z90.3 Acquired absence of stomach [part of]
CPT/HCPCS: 36415; 80053; 80061; 82306; 82607; 82728; 83036; 83525; 83540; 84425; 84443; 84590; 84630; 85025; 85610; 85730; 86140

== ENCOUNTER 2024-10-12 05:44 | Day surgery (SDC) | payer OTHER, SELFPAY ==
--- OUTSIDE RECORDS SUMMARY | 2024-09-27 08:38 | XMS_ITS | Patient Health Record ---
Author Organization [facility] Address [address] [place] [address] Care Team Providers Care Burrer Hand Name Role Phone SHAHEENSHERRILL Primary Care Provider UnavailCher Jarrett Unavailable [phone] Allergies No Known Allergies Results Component Value Reference Range Notes Test, Urine Reviewed date:10/05/2023 11:42:20 AM Interpretation: Performing Lab: Notes/Report: Test, Urine Negative Test, Urine Reviewed date:05/09/2024 12:04:52 PM Interpretation: Performing Lab: Notes/Report: Test, Urine Negative Urinalysis Reviewed date:05/09/2024 12:05:02 PM Interpretation: Performing Lab: Notes/Report: NITRITE Positive PH 5.0 PROTEIN Moderate S.G 1.015 WBC Large GLUCOSE Neg KETONES Moderate UROBILINOGEN Moderate BILIRUBIN Moderate BLOOD Moderate Urinalysis Reviewed date:03/02/2024 01:03:49 PM Interpretation: Performing Lab: Notes/Report: PH 5.0 PROTEIN Neg GLUCOSE Neg BLOOD Neg Urinalysis, Complete-[id number] Reviewed date:06/02/2024 08:03:26 AM Interpretation: Performing Lab:[facility] [place], [address], [place], Phone - [phone], Director - Amos Notes/Report: Clinical Information:LEONARDO UTI SRC:UC Clinical Information:LEONARDO UTI SRC:UC Specific [place] 1.020 1.005-1.030 pH 6.5 5.0-7.5 Urine-Color Yellow [...] Calcium Oxalate N/A Bacteria Many None seen/Few Urinalysis, Complete-[id number] Reviewed date:05/11/2024 12:39:20 PM Interpretation: Performing Lab:[facility] [place], [address] [place] [address], Phone - [phone], Director - Amos Notes/Report: Specific [place] 1.020 1.005-1.030 pH 6.0 5.0-7.5 Urine-Color Yellow [...] None seen /lpf Bacteria Many None seen/Few hCG,Beta Subunit, Qnt-[id number] Reviewed date:05/10/2024 08:10:04 AM Interpretation: Performing Lab:[facility], [address] [place] [address], Phone - [phone], Director [facility] [place] [facility] Notes/Report: hCG,Beta Subunit,Qnt,Serum <1 <5 MIU/ML Males [...] as loss, preeclampsia, delivery and growth restriction. CBC With Differential/Platel et-880006 Reviewed date:05/10/2024 08:03:15 AM Interpretation: Performing Lab:[facility] [place], [address] [facility], [place], Phone - [phone], Director - Amos Notes/Report: WBC 9.2 3.4-10.8 x10E3/uL Effective May 16, 2024 profile 838373 WBC will be made non-orderable as a [...] % Immature Grans (Abs) 0.1 0.0-0.1 x10E3/uL Urine Culture, Routine-[id number] 7 Reviewed date:05/11/2024 12:38:46 PM Interpretation: Performing Lab:[facility] [place], [address] [facility], [place], Phone - [phone], Director - Amos Notes/Report: Urine Culture, Routine [...] S Tetracycline S Tobramycin S Trimethoprim/Sulfa R Urine Culture, Routine-54741 7 Reviewed date:06/02/2024 02:20:45 PM Interpretation: Performing Lab:[facility], [address] [facility], Phone - [phone], Director - Amos Notes/Report: Clinical Information:LEONARDO UTI SRC:UC Clinical Information:LEONARDO UTI SRC:UC Urine Culture, Routine Final report Result 1 Mixed urogenital karyna 50,000-100,000 colony forming units per mL 226567-Pyq IGP, CtNg Culture 30 Plus Reviewed date:03/08/2024 07:54:10 AM Interpretation: Performing Lab:[facility], [address] [place] [address], [address], Phone - [phone], Director - [facility] Notes/Report: Clinical Information:[id number] LMP / Prev Treat...XLO=[id number] Dates / Results....11/28/20 NIL No. of containers..01 ThinPrep Vial DIAGNOSIS: NEGATIVE FOR INTRAEPITHELIAL LESION OR MALIGNANCY. Specimen adequacy: Satisfactory for evaluation. Endocervical and/or squamous metaplastic cells (endocervical component) are present. Clinician provided ICD10: Z01.419 Z72.51 Performed by: Evelyne hodges, Electronics Recycler (ASCP) . . Note: The Pap smear [...] Negative Gonococcus, Nuc. Acid Amp Negative Negative PDF Report Reviewed date:03/08/2024 07:53:52 AM Interpretation: Performing Lab:[facility], [address], [address], [place], Phone - [phone], Director - Alexander Notes/Report: Clinical Information:[id number] LMP / Prev Treat...HGJ=[id number] Dates / Results....11/28/20 NIL No. of containers..01 ThinPrep Vial PDF Report Reviewed date:05/10/2024 08:02:50 AM Interpretation: Performing Lab:[facility], [address] [facility], Phone - [phone], Director Baljit Trinidad Notes/Report: PDF Report Reviewed date:05/10/2024 08:02:58 AM Interpretation: Performing Lab:[facility], [address] [place] [address], Phone - [phone], - Alexander Notes/Report: PDF Report Reviewed date:06/02/2024 08:01:52 AM Interpretation: Performing Lab:[facility], [address] [facility] [place], Phone - [phone], Director Baljit Trinidad Notes/Report: Clinical Information:LEONARDO UTI SRC:UC PDF Report Reviewed date:05/11/2024 12:33:09 PM Interpretation: Performing Lab:[facility] [address] [facility], [place], Phone - [phone], Director Baljit Trinidad Notes/Report: Reason For Referral No Information Medications Medication [...] Status Risk Notes Problem Contraception care education (065060831) Encounter for other general counseling and advice on contraception (Z30.09) Active confirmed Problem Morbid obesity (disorder) (273943513) Morbid (severe) obesity due to excess calories (E66.01) Active confirmed Problem Amenorrhea (14255317) Amenorrhea, unspecified (N91.2) Active confirmed Problem Irregular Menstruation (37364795) Other specified irregular menstruation (N92.5) Active confirmed Problem Abnormal vaginal bleeding (132488636) Other specified abnormal uterine and vaginal bleeding (N93.8) Active confirmed Problem Calculus of kidney (84296684) Calculus of kidney (592.0) Active confirmed Major Problem Gynecological examination normal (711891466262295) Routine gynecological examination (V72.31) Active confirmed Major Vital Signs Temperature 98.1 degrees Fahrenheit 05/09/2024 Blood pressure diastolic 68 mm Hg 05/09/2024 Height 63.5 in 05/09/2024 Blood pressure systolic 108 mm Hg 05/09/2024 Weight 132 lbs 05/09/2024 BMI 23.01 kg/m2 05/09/2024 Encounters Encounter Location Date Provider Diagnosis [facility] [address] [facility] [address] [place] [address] 10/05/2023 Cher Anderson Encounter for insertion of intrauterine contraceptive device Z30.430 [facility] [address] [facility] [address] [place] [address] 03/02/2024 Cher Anderson Encounter for gynecological examination (general) (routine) without abnormal findings Z01.419 ; High risk heterosexual behavior Z72.51 ; Encounter for surveillance of contraceptives, unspecified Z30.40 and Other specified counseling Z71.89 [facility] [place] [address] [place] [address] 05/09/2024 Cher Anderson Other specified abnormal uterine and vaginal bleeding N93.8 and Urinary tract infection, site not specified N39.0 [facility] [address] [address] [place] [address] 05/10/2024 [facility]va [facility] [address] [facility] [address] [place] [address] 10/05/2023 Cher Emanuelva [facility] [address] [place] [address] 03/02/2024 Cher Gonzalezueva [facility] [address] [place] [address] 05/09/2024 Cher Gonzalezueva [facility] [address] [place] [address] 05/11/2024 Cher Anderson [facility] [address] [place] [address] 05/30/2024 Cheremani Anderson Urinary tract infection, site not specified N39.[address] [place] [address] 06/02/2024 Cher Anderson Urgency of urination R39.15 [...] 06/02/2024 Urgency of urination (ICD-10 - R39.15) 05/09/2024 Urinary tract infection, site not specified (ICD-10 - N39.0) OFFICIAL UA AND URINE C/S INCREASE FLUID INTAKE. RX AND INSTRUCTIONS FOR BACTRIM DS WERE GIVEN. 03/02/2024 High risk heterosexual behavior (ICD-10 - Z72.51) GC & CHLAMYDIA TESTS WITH PAP SMEAR. OFFERED SERUM STD TESTS, PAT REFUSED. 03/02/2024 Encounter for surveillance of contraceptives, unspecified [...] PREP,HPV IF ASCUS, CT/GC (21-29YR) 12/31/2017 Urinalysis, Complete-325385 06/02/2024 Urine Culture, Routine-774157 06/02/2024 Next Appt Details Provider Name:Cher Gonzalez michellelinwood, 03/06/2025 09:00:00 AM, [address] [facility], [place], [address], Insurance Providers Payer Name Payer Address Payer Phone Subscriber Number Group Number Insured Name Patient Relationship to Insured Coverage Start Date Coverage End Date [facility] [address] [place] [address] [id number] EILEEN PILLAI Self - patient is [...]
--- OUTSIDE RECORDS SUMMARY | 2024-09-27 08:38 | XMS_ITS ---
Author Organization [employer] [facility] Address [address] [facility] [address] [place] [address] Care Team Providers Care Safety And Skill Based Pay Manager Name Role Phone SHERRILL JAMISON Primary Care Provider UnavailCher Jarrett Unavailable [phone] Results Component Value Reference Range Notes Urinalysis, Complete-845037 Reviewed date:06/02/2024 08:03:26 AM Interpretation: Performing Lab:[facility] [place], [facility], Phone - [phone], Director - Amos Notes/Report: Clinical Information:LEONARDO UTI SRC:UC Clinical Information:LEONARDO UTI SRC:UC Specific [place] 1.020 1.005-1.030 pH 6.5 5.0-7.5 Urine-Color Yellow [...] N/A Bacteria Many None seen/Few Urine Culture, Routine-03165 7 Reviewed date:06/02/2024 02:20:45 PM Interpretation: Performing Lab:[facility] [place], [address] [facility], [place], Phone - [phone], Director - Amos Notes/Report: Clinical Information:LEONARDO UTI SRC:UC Clinical Information:LEONARDO UTI SRC:UC Urine Culture, Routine Final report Result 1 Mixed urogenital karyna 50,000-100,000 colony forming units per mL PDF Report Reviewed date:06/02/2024 08:01:52 AM Interpretation: Performing Lab:[facility]well, [address] [facility], [place], Phone - [phone], Director - Amos Notes/Report: Clinical Information:LEONARDO UTI SRC:UC REASON FOR VISIT STILL FEELS LIKE UTI Encounters Encounter Location Date Provider Diagnosis [facility] [email or web address] [place] [address] 05/30/2024 Cher Anderson Urinary tract infection, site not specified N39.0 Assessments Encounter Date Diagnosis (ICD Code) Assessment Notes Treatment Notes Treatment Clinical Notes Section Notes 05/30/2024 Urinary tract infection, site not specified (ICD-10 - N39.0) Plan Of Treatment Next Appt Details Provider Name:Cher Gonzalez michellelinwood, 03/06/2025 09:00:00 AM, [email or web address], [place], [address], Progress Notes * EILEEN PILLAIDOB:1990 (33 yo F)Acc No.[id number]:05/30/2024 Patient:?EILEEN PILLAI :1990???Age:33 Y???Sex:Female Address:[address] [place] [address], [place], [address] Subjective: * Chief Complaints: * ???STILL FEELS LIKE UTI * Medical History:? * Surgical History:? * Hospitalization/Major Diagno stic Procedure:? * Medications:? Objective: * Vitals:? * Physical Examination:? Assessment: * Assessment: 1.?Urinary tract infection, site not specified - N39.0??? Plan: * Treatment: ? Value Reference Range ?Specific [place] 1.020 1.005- 1.030 - * ?pH 6.5 [...] - * LEONARDO UTI ?LAB: Urine Culture, Routine-[id number] (Collection Date & Time - 05/31/2024 11:08 [...] true * Date:? Generated for Printi ng/Faradhag/eTransmitting on:?09/27/2024 08:38 AM EDT
--- OUTSIDE RECORDS SUMMARY | 2024-09-27 08:38 | XMS_ITS ---
Author Organization [facility] [email or web address] [facility] Address [address] [place] [address] [address] [place] [address] Care Team Providers Care Solution Analyst Name Role Phone SHERRILL JAMISON Primary Care Provider Cher Velasquez Unavailable [phone] REASON FOR VISIT Urine Order Encounters Encounter Location Date Provider Diagnosis [email or web address] [employer] [address] [address] 06/02/2024 Cher Anderson Urgency of urination R39.15 Assessments Encounter Date Diagnosis (ICD Code) Assessment Notes Treatment Notes Treatment Clinical Notes Section Notes 06/02/2024 Urgency of urination (ICD-10 - R39.15) Plan Of Treatment Pending Test Test Name Order Date Urinalysis, Complete-[id number] 06/02/2024 Urine Culture, Routine-[id number] 06/02/2024 Next Appt Details Provider Name:Cher pascual, 03/06/2025 09:00:00 AM, [address] [place] [address], [address], [place], [address], Progress Notes * EILEEN PILLAIDOB:1990 (33 yo F)Acc No.[id number]:06/02/2024 Patient:?ROSASCLIVEYN :1990???Age:33 Y???Sex:Female Address:[address] [place] [address], [address] Subjective: * Chief Complaints: * ???Urine Order * Medical History:? * Surgical History:? * Hospitalization/Major Diagno stic Procedure:? * Medications:? Objective: * Vitals:? * Physical Examination:? Assessment: * Assessment: 1.?Urgency of urination - R3 9.15??? Plan: * Treatment: * Procedure Codes:? * true * Date:? Generated for Miguel jordan/Sergey/Gayle on:?09/27/2024 08:38 AM EDT
--- OUTSIDE RECORDS SUMMARY | 2024-09-27 08:38 | XMS_ITS | Clinical Summary ---
Author Organization [employer] Address [address] [place] [address] Care Team Providers Care Information Technology Security Analyst Name Role Phone Unavailable Primary Care Provider [...] 1-dose 75+ series) 10/28/2067 [place] [id number] [employer]
--- OUTSIDE RECORDS SUMMARY | 2024-09-27 08:38 | XMS_ITS ---
Author Organization [facility] Address [address] [place] [address] Care Team Providers Care Direct Response Consultant Name Role Phone SHERRILL JAMISON Primary Care Provider Cher Velasquez [phone] Medications Medication SIG (Take, Route, Fr equency, Duration) Notes Start Date End Date Status Augmentin 500-125 MG 1 tablet Orally Twi ce a day for 7 days 05/11/2024 Active Encounters Encounter Location Date Provider Diagnosis [facility] [address] [address] 05/11/2024 Cher Anderson Plan Of Treatment Medication Medication Name Sig Start Date Stop Date Notes Augmentin 500-125 MG 1 tablet Orally Twi ce a day for 7 days 05/11/2024 Next Appt Details Provider Name:Cher pascual, 03/06/2025 09:00:00 AM, [address] [place] [address], [address], [place], [address], Progress Notes * ROSAS EILEENDOB:1990 (33 yo F)Acc No.[id number]:05/11/2024 Patient:?EILEEN PILLAI :1990???Age:33 Y???Sex:Female Address:[address] [place] [address], [place], [address] * Refills? Start Augmentin Tablet, 500-125 MG, Orally, 14 Tablet, 1 tablet, Twice a day, 7 days, Refills=0 * true * Date:? Generated for Miguel jordan/Sergey/Gayle on:?09/27/2024 08:38 AM EDT
--- OUTSIDE RECORDS SUMMARY | 2024-09-27 08:39 | XMS_ITS | Data Portability ---
Author Organization [place] - [facility] Address [address] [place] [address] Assessment Encounter Date Assessment Date Assessment LastModified by Organization Details LastModified Time 10/10/2009 10/10/2009 SAMLL GANGLION CYST DBA_PATCH_ [id number] Not available 01/13/2011 02:10:01 02/24/2011 02/24/2011 20 yo female with CP assoc with URI/fever - suboptimal exam of lungs due to pt discomfort, CXR ordered - Mom to go to [facility] and await call from me with results, if neg would have pt seen in ED to determine cause, if + pneumonia will Rx with abx kcamera Not available 02/24/2011 17:56:50 Plan of Treatment Reminders Order Date Submit Date Provider Last Modified By Organization Details Last Modified Time Details Appointments None recorded. Lab pulse oximetry lab 2010 011 [facility], [address] [place] [address], [phone], 3 03:09:40 Referral None recorded. Procedures None recorded. Surgeries None recorded. Imaging x-ray, chest - CP with deep inspiration - rule out pneumonia or other pathology 2010 011 [facility] Not available 3 03:09:40 Medication Orders None recorded. Patient TargetsNo targets recorded. Patient Instructions Encounter Date Encounter Id Patient Instructions Last Modified By Organization Details Last Modified Time 10/10/2009 [id number] Rx: NONE AT PRESENT --- WILL CALL AREA BECOMES TENDER OR LARGER IN SIZE -> THEN TO HAND SURGEON DBA_PATCH_ Not available 01/13/2011 02:08:16 10/31/2009 [id number] cont diet and exercise; weight goal for next year 160's; gardasil info given [id number] Not available 01/13/2011 02:08:55 Reason for Referral None Reported. Results Created Date Observation Date Name Description Value Unit Range Abnormal Flag Note LastModifiedBy Organization Detail LastModifiedTime 02/25/20 11 02/24/2011 pulse oxime try lab O2 Saturation 98 Not Available [facility] [address] [place] [address], [address], 02/24/2011 17:32:10 02/25/20 11 02/24/2011 x-ray , chest No observ ation record ed. [address] [place], [place], [address], 01/07/2013 03:09:40 Result Notes None recorded. Problems Name Problem SNOMED Code Status Onset Date Resolution Date Notes Provider Name and Address Organization Details Recorded Time Acute conjunctivi tis 86688220 Active 2008 Not Available [facility] 3 03:01:06 Abnormal weight gain 724185860 Active 2006 Not Available [facility] 3 03:01:06 Parent-chil d problem 29485698 Active adopted Not Available [facility] 3 03:01:06 Open wound 088300347 Active 2008 Not Available [facility] 3 03:01:06 Ganglion cyst of tendon sheath 41118221 Active Not Available [facility] 3 03:01:06 Chest pain 96519681 Active Not Available [facility] 3 03:01:06 Problem Notes None recorded. Procedures Surgical History Date Name Laterality Status Provider Name and Address Organization Details Recorded Time 06/15/2011 Urologic completed Jonathon Bradley [place] - [facility] 07/28/2011 14:24:27 Imaging Results Imaging Date Name Status LastModified by Organiz ation Details LastModified Time 02/24/2011 x-ray, chest completed [address] [place], [place], [address], 01/07/2013 03:09:40 Procedure Notes None recorded. Medical [...] Details Last Updated DateTime 10/31/2009 162.56 cm 08317.81 134 g 31.2 kg/m2 114 mm[Hg] 62 mm[Hg] Mariely ware M.A[facility] 0 14:17:59 Social History Question [...] virus, trivalent, preservative 1 completed Not Available [facility] 07/02/2019 02:35:17 Novel [id number], nasal 9 completed Not Available [facility] 07/02/2019 02:34:48 varicella 11/04/200 8 completed Not Available [facility] 04/19/2011 03:16:44 influenza, unspecified formulation 8 completed Not Available [facility] 04/19/2011 03:19:09 Influenza, split virus, trivalent, preservative 0 completed Not Available [facility] 07/02/2019 02:34:45 Tdap 0 completed Not Available [facility] 07/02/2019 02:33:40 meningococcal ACWY, unspecified formulation 6 completed Not Available [facility] 04/19/2011 03:17:38 varicella 6 completed Not Available [facility] 04/19/2011 03:17:38 Td(adult) unspecified formulation 4 completed Not Available [facility] 04/19/2011 03:19:09 Influenza, split virus, trivalent, preservative 0 completed Not Available [facility] 07/02/2019 02:35:07 Past Encounters Encounter ID Performer Location Encounter Start Date Encounter Closed Date Diagnosis/Indication Diagnosis SNOMED-CT Code Diagnosis ICD10 Code Diagnosis Note [id number] [facility] [address] [place] [address] [place] [address] 12/30/2006 16:17:00 12/30/2006 16:51:47 [id number] [facility] [address] [place] [address] [place] [address] 03/03/2007 15:38:38 03/03/2007 16:25:03 [id number] [facility] [address] [place] [address] [place] [address] 04/18/2008 11:05:40 04/18/2008 11:51:40 [id number] [facility] [address] [place] [address] [place] [address] 06/12/2008 14:43:53 06/12/2008 15:00:56 [id number] [facility] [address] [place] [address] [place] [address] 07/07/2008 13:56:01 07/07/2008 14:19:32 [id number] [facility] [address] [place] [address] [place] [address] 08/13/2008 11:22:10 08/13/2008 12:03:42 [id number] [facility] [address] [place] [address] 08/15/2008 16:52:40 02/22/2009 01:23:50 [id number] [facility] [address] [place] [address] 10/10/2009 15:30:20 10/10/2009 16:29:57 [id number] [facility] [address] [place], [place] [address] 10/31/2009 14:12:30 10/31/2009 16:01:33 [id number] [facility] [address] [place] [address] 02/24/2011 16:59:51 02/24/2011 17:43:05 Health Concerns [...] *SELF PAY* Sarahy Schwartz 10/10/2009 1 [employer] [id number] Abi Walkerel [id number] Abi Walkerel 10/31/2009 1 [employer] [id number] Abi Walkerel [id number] Abi Schwartz 02/24/2011 1 [employer] [id number] Abi [place] [id number] Abi Schwartz Notes Date Note Type Note Provider Name and Address Organization Details Recorded Time 10/31/2009 text/html ROS neg; LMP 1 month ago, regular, pos cramps (midol); neg VSD Jonathon flores [place] - [facility] 10/31/2009 15:46:05 OBGyn Episode No OBEpisode recorded.
[2024-10-10 10:57] VITALS: BMI 22.5
--- NOTE | 2024-10-11 10:10 | HO.ANESPROP2 ---
Documented by User: Nati Calderon NP 10/11/24 10:11 HPI - Anesthesia Eval Consult details Narrative: 33yo F for Panniculectomy s/p gastric sleeve 2022 [facility] Active Problems Active Problems: All Active Problems Adult wellness visit (Acute) Excess skin (Acute) Breast asymmetry (Acute) Easy bruisability (Acute) Encounter for removal of sutures (Acute) Rash (Acute) Obesity (Acute) Vitamin B1 deficiency (Acute) Vitamin A deficiency (Acute) Vitamin B12 deficiency (Acute) Vitamin D deficiency (Acute) Anxiety, generalized (Acute) Major depression, recurrent (Acute) 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 (Acute) PTSD (post-traumatic stress disorder) (Acute) Past Medical History Medical History (Updated 10/12/24 @ 06:23 by Maranda Lombardo RN) Asthma Depression Anxiety Postgastrectomy malabsorption PTSD (post-traumatic stress disorder) History of kidney stones Family History Family History Sister Substance use disorder Mental health disorder Brother Substance use disorder Mental health disorder Mother Substance use disorder Mental health disorder Father Substance use disorder Mental health disorder Other Patient unsure of family history Family history of problems with anesthesia: No Surgical History Surgical History (Updated 10/10/24 @ 10:52 by Kia Muniz RN) S/P laparoscopic sleeve gastrectomy History of lithotripsy History of Problems with Anesthesia: No Social History Social History (Updated 10/10/24 @ 10:56 by Kia Muniz RN) Household Members: None Housing: Apartment Are you a primary insurance healthcare consultant to a significant other at home: No Do you presently have visiting nurse or other home services: No Patient Tobacco Use Status: Never used Tobacco e-Cigarette/Vaping Use: Currently Using Use of substances other than those prescribed or required for medical reasons: Yes Substance Use Type: Marijuana Are you DNR?: No Advance Directives on File: No : No Poor oral hygiene: No service: No Current occupational status: employed Cognitive needs: No Hearing needs: No Vision needs: Yes Meds Allergies Allergy/AdvReac Type Severity Reaction Status Date / Time No Known Allergies Allergy Verified 10/05/24 08:42 Exam Height,Weight and Vital Signs: Height 5 ft 3 in Weight 57.606 kg Pertinent Lab Results Pertinent Lab Results: Laboratory Tests 10/07/24 07:10 Blood Type O Positive Antibody Screen NEGATIVE Laboratory Tests 10/07/24 07:22 WBC 5.4 Hgb 13.1 Hct 39.1 Plt Count 265 Sodium 139 Potassium 3.8 Chloride 105 Carbon Dioxide 28 BUN 16 Creatinine 0.69 Assessment and Plan Assessment Anesthesia Assessment: Chart Reviewed Final Anesthetic Review Family History of Problems with Anesthesia: No History of Problems with Anesthesia: No Documented by User: Hilda Valencia MD 10/12/24 07:25 [facility] Past Medical History Medical History (Updated 10/12/24 @ 06:23 by Maranda Lombardo RN) Asthma Depression Anxiety Postgastrectomy malabsorption PTSD (post-traumatic stress disorder) History of kidney stones Family History Family History Sister Substance use disorder Mental health disorder Brother Substance use disorder Mental health disorder Mother Substance use disorder Mental health disorder Father Substance use disorder Mental health disorder Other Patient unsure of family history Surgical History Surgical History (Updated 10/10/24 @ 10:52 by Kia Muniz RN) S/P laparoscopic sleeve gastrectomy History of lithotripsy Social History Social History (Updated 10/10/24 @ 10:56 by Kia Muniz RN) Household Members: None Housing: Apartment Are you a primary insurance healthcare consultant to a significant other at home: No Do you presently have visiting nurse or other home services: No Patient Tobacco Use Status: Never used Tobacco e-Cigarette/Vaping Use: Currently Using Use of substances other than those prescribed or required for medical reasons: Yes Substance Use Type: Marijuana Are you DNR?: No Advance Directives on File: No : No Poor oral hygiene: No service: No Current occupational status: employed Cognitive needs: No Hearing needs: No Vision needs: Yes Meds Allergies Allergy/AdvReac Type Severity Reaction Status Date / Time No Known Allergies Allergy Verified 10/05/24 08:42 Exam Airway Mallampati Class: II TM Dist: >3cm Neck ROM: Full Heart: rrr Lungs: cta Assessment and Plan Assessment Anesthesia Assessment: Anesthesia Plan Discussed Final Anesthetic Review NPO: Yes ASA Class: II Final Preanesthetic Review: No Changes in Pt Med Stat, Meds/Allgs Chart Reviewed and Consent Obtained/Reviewed Patient Risk: Low Procedure Risk: Intermediate Anesthetic Plan Anesthetic Plan: GA Disposition: Standard PACU
[2024-10-12] VITALS (10 sets, daily range): BP systolic 96–125; BP diastolic 55–77; PULSE 53–99; RESP 12–20; TEMP 36.1–37.9; O2SAT 95–100; BMI 22.8
[2024-10-12 06:46] LABS: UPreg QC Valid YES; Urine Pregnancy NEGATIVE (NEGATIVE)
[2024-10-12] MEDS: Lactated Ringers 1,000 ML 100 ML IVCONT ×3 (06:49→22:08)
--- NOTE | 2024-10-12 07:30 | MHC.SHP ---
Pre-Procedural Eval Section A - 24 Hr Update-Section A only Date of Service: 10/12/24 The patient is an INPATIENT: No The patient has been examined within 24 hours of the surgical procedure. The History & Physical has been completed within 30 days and I have reviewed it.: Yes Section B - Complete if H&P > 30 days Chief Complaint: Excessive and redundant skin and subcutaneous tiss Relevant Family History (Specify if Yes): No Relevant Social History: None Present Medications: None Medical History: No relevant PMH History of Previous Operations: Relevant previous surgery/procedure and date(s) (Lap sleeve gastrectomy) Allergies: Allergies Allergy/AdvReac Type Severity Reaction Status Date / Time No Known Allergies Allergy Verified 10/05/24 08:42 Review of Systems Sugical H&P ROS: Negative: Constitution, Cardiovascular, Respiratory, Neurological, Psychiatric, Hem-Onc, Allergic/Immunologic, Gastrointestinal, Genitourinary, Musculoskeletal, Integumentary, Endocrine and Eyes/Ears/Nose/Throat Exam Surgical H&P Exam: Normal: HEENT, Normal: Heart, Normal: Lungs, Normal: Extremities, Normal: Abdomen, Normal: Skin and Normal: Neurological Plan Diagnosis/Plan: Unchanged I have reviewed the history and physical and performed a pertinent physical examination on my patient. No changes have occurred unless specified. Time Spent With Patient Time: Total time managing care of this patient today ____ minutes.
--- NOTE | 2024-10-12 07:32 | PM.OP ---
Brief Operative Note Date of Service: 10/12/24 Pre-op diagnosis: Excess skin Post-op diagnosis: same Procedure: PROCEDURE: Panniculectomy with umbilical transposition and bilateral subcutaneous fat flaps INDICATION: This a 33 year old female who underwent laparoscopic sleeve gastrectomy on 12/05/2022. She had an excellent result achieving a BMI of 27.4 kg/m2 with a total weight loss of 110.8lbs, or 46.6% of her TBWL. As a result, she has developed panniculitis which has not resolved despite continuous use of clotrimazole ointment as well as skin irritation. On exam she has extreme skin laxity due to massive weight loss, with the abdominal pannus completely hanging 4cm below the pubis. Panniculectomy was recommended. We discussed the two options for the panniculectomy of using a combined vertical and horizontal incisions or just a horizontal (bikini) incision. It was my recommendation to do only horizontal incision based on her body habitus and skin laxity. The patient agreed with this. Risks and complications were discussed with the patient including bleeding, infection, umbilical loss, flap necrosis, asymmetry, dehiscence, seroma, VTE. The patient understood the risks and was in agreement to proceed with surgery. PROCEDURE: The incisions were appropriately marked at the preop area with the patient standing and laying down. After induction of general anesthesia a Gary catheter and pneumatic compression devices were placed. The patient was prepped and draped in the usual sterile manner and the incisions were marked again and confirmed. The skin was infiltrated with lidocaine and epinephrine. The #10 blade scalpel was used for the large incisions and the #15 blade scalpel for the umbilicus. Cautery was used to divide the subcutaneous tissues until the fascia was identified. Then I used the cautery to separate the pannus from the fascia. The inferior incision was made initially and I mobilized the flap for a several centimeters cephalad to the umbilicus. The umbilicus was incised circumferentially and detached from the surrounding tissues all the way to the fascia while its stalk was preserved. With the patient in reflex position I confirmed that the skin flaps were appropriate and would allow for the tissues to come together with reasonable tension. At that point a horizontal incision was made 4 cm above the umbilicus. #10 blade was used for the skin, cautery for the dermis and for the remaining tissues. A subcutaneous fat flap was raised from the upper skin flap in order to fill the space under the skin and support the closure of the two flaps. In addition the inferior flap was mobilized caudally for a few centimeters to create a space for the subcutaneous fat flap as well as relieve tension from the closure. A circumferential incision was made at the area where the umbilicus would be re-implanted. The umbilicus was appropriately oriented and was delivered through the defect and was secured in place with a Barbra. No bleeding was noted anywhere. One GINI drain was placed from the left corner of the horizontal incision across the wound and was secured in place with a silk suture. The subcutaneous fat flap was secured under the inferior flap with several interrupted 3.0 Monocryl sutures. The two flaps were brought together and were attached at the midline of the horizontal incision with a #3.0 Monocryl suture. At that point the umbilicus was properly oriented and was re-approximated to the skin with 8 interrupted 3.0 Monocryl sutures. In a similar fashion the skin flaps were re-approximated with multiple 3.0 Monocryl sutures. The skin was closed in all incisions and umbilicus with 4.0 Monocryl sutures. Steri-strips, xeroform gauzes and gauzes were used to cover the incisions. An abdominal binder was also placed. The was awaken and was transferred to the recover room in a stable condition. I was present and performed the entire procedure. Ms. Parmar was the assistant professor of communication. Dioni Nicholson MD, PhD, FACS Surgeon: Tanner Nicholson MD Surgeon: Tanner Nicholson MD Anesthesia: GETA and local Was an Regulatory Submissions Associate used for this Procedure?: No Regulatory Submissions Associate: Sincere Landa Estimated blood loss (mL): 10 IV fluids (mL): 800 Urine output (mL): 0 (No Gary to record output) Pathology: other (Abdominal pannus) Condition: stable Disposition: PACU
--- NOTE | 2024-10-12 12:05 | P.PNGS_ITS ---
Subjective Subjective Date of Service: 10/13/24 Interval history: Feels well. Mild incisional pain. She is tolerating phase 3 bariatric diet Physical Exam Vital Signs: Vital Signs: Last Vital Signs Temp 99.1 F 10/12/24 11:46 Pulse 81 10/12/24 11:46 Resp 16 10/12/24 11:46 BP 117/72 10/12/24 11:46 Pulse Ox 97 10/12/24 11:46 O2 Del Method Room Air 10/12/24 11:46 BMI result Body Mass Index 22.8 GI: Inspection: Yes normal to inspection, Yes incision (Incision is healing well. Umbilicus viable with mild ischemia @ skin edges) and Yes other (Jerry drain with serosanguinous fluid) Palpation (GI): Soft to palpation Extrem: Right lower extremity: normal to inspection (no calf tenderness) Left lower extremity: normal to inspection (no calf tenderness) Objective Data Active Medications Fentanyl (Fentanyl Citrate/Pf 100 Mcg/2 Ml Vial) 50 mcg IVPUSH Q5M PRN PRN Reason: Pain, Moderate to Severe (Pain Scale 4-10) Stop: 10/12/24 14:21 Lactated Ringer's (Lr) 1,000 mls @ 100 mls/hr IVCONT .Q10H [facility] Last Admin: 10/12/24 06:49 Dose: 100 mls/hr Documented By: MARIO Lactated Ringer's (Lr) 1,000 mls @ 100 mls/hr IVCONT .Q10H [facility] Last Admin: 10/12/24 06:43 Dose: Not Given Documented By: MARIO Non-Admin Reason: duplicate Naloxone HCl (Naloxone Hcl 0.4 Mg/Ml Vial) 0.04 mg IVPUSH Q5M PRN PRN Reason: Excessive sedation or RR < 8 Ondansetron HCl (Ondansetron Hcl 4 Mg/2 Ml Vial) 4 mg IVPUSH ONCE PRN PRN Reason: Nausea and Vomiting Stop: 10/12/24 14:21 Oxycodone HCl (Oxycodone Hcl Immed Release 5 Mg Tablet) 5 mg PO ONCE PRN PRN Reason: Pain, Moderate(Pain Scale 4-6) if no IV Access Stop: 10/12/24 14:21 Labs Labs: Laboratory Results - last 24 hr 10/12/24 06:14 Urine Test NEGATIVE Procedures Date of Service Date of Service: 10/13/24 Progress Note: A&P Assessment and plan (1) S/P panniculectomy: Status: Acute Assessment and Plan: s/p panniculectomy Doing well The patient will be discharged home All instructions were discussed with patient and family Time Spent With Patient Time: Total time managing care of this patient today ____ minutes. Quality Stroke Does the patient have a stroke diagnosis?: No VTE Prior VTE?: No VTE Risk Level:: Surgical - moderate VTE Device Contraindication: N/A - Device Ordered VTE Drug Contraindication: Treatment Not Indicated
--- NOTE | 2024-10-12 12:40 | PHA.MEDREC ---
Addendum entered by Tejas Zhou RPh 10/12/24 12:43: Reviewed by [facility] Original Note: Pharmacy Consult ? Medication Reconciliation Pharmacy has reviewed the medication reconciliation done by nursing. Claims match med list.
[2024-10-12] MEDS: HYDROmorphone HCl 0.5 MG/0.5 ML SYRINGE 0.25 MG IVPUSH ×2 (12:49→17:03)
[2024-10-12] MEDS: ceFAZolin Sodium/Dextrose,Iso 2 GM/50 ML PIGGYBACK IV (13:35)
[2024-10-12] MEDS: Metoclopramide HCl 10 MG/2 ML VIAL IVPUSH (14:36)
[2024-10-12] MEDS: Acetaminophen 1,000 MG/100 ML PIGGYBACK 16.7 MG IV ×2 (15:17→21:16)
[2024-10-12] MEDS: ondansetron HCL 4 MG/2 ML VIAL IVPUSH (17:10)
[2024-10-13 03:07] VITALS: BP 96/52; PULSE 55; RESP 20; TEMP 36.6; O2SAT 97
[2024-10-13] MEDS: Acetaminophen 1,000 MG/100 ML PIGGYBACK 16.7 MG IV (03:13)
[2024-10-13 07:02] VITALS: PULSE 60; TEMP 36.3; O2SAT 99
--- NOTE | 2024-10-13 07:28 | HO.POSTANES ---
Post Anesthesia Evaluation Post Anesthesia Evaluation Date of Service: 10/13/24 Vital Signs: Vital Signs Temp Pulse Resp BP Pulse Ox O2 Del Method 10/13/24 07:02 97.4 F 60 99 Room Air 10/13/24 03:07 97.9 F 55 20 96/52 L 97 Room Air 10/12/24 23:25 97.0 F 53 20 101/55 L 96 Room Air Anesthesia: General Endotracheal-GETA Mental Status: Awake Pain Control: Satisfactory Nausea/Vomiting: None Hydration: Adequate Anesthesia-Related Issues: No Anes. Related Issues
--- NOTE | 2024-10-13 07:51 | PM.DS ---
DS: Providers Provider Date of Service: 10/13/24 Date of discharge: 10/13/24 Primary care physician: Dorothy Batista MD DS: Diagnosis Discharge Diagnosis (1) S/P panniculectomy: Status: Acute DS: Summary Hospital Course Hospital Course: ADMITTING DIAGNOSIS: excess skin, ? DISCHARGE DIAGNOSIS: same, s/p panniculectomy ? PAST SURGICAL HISTORY: LSG ? PROCEDURE: panniculectomy ? DISCHARGE SUMMARY: ? History of Present Illness: ? The patient is a?33 year-old woman with a BMI of?22.9 kg/m2 and associated co-morbidities as described above. The patient had extensive work-up, was treated multiple times for recurrent dermatitis and was scheduled for panniculectomy. Risks and complications of the surgery were discussed with the patient in advance, particularly the possibility of , pulmonary embolism, bleeding, bowel injury, GERD, cardiac, renal or pulmonary complications. The patient understood all the risks and was in agreement with the surgical plan. ? Hospital Course: ? The patient underwent an uneventful panniculectomy on the day of admission. Postoperatively, the patient was transferred to the surgical floor. The patient received IV Acetaminophen and IV dilaudid for pain control. Patient was started on bariatric phase 3 diet POD #0. On postoperative day one, the patient was feeling well without nausea, vomiting, fevers, or tachycardia. The patient had some mild incisional pain and the abdomen was soft. Since the patient is doing well, we decided that the patient was ready to be discharged. The patient was given instructions to follow-up with me next week and to call my office for any fever over 101, persistent abdominal pain, nausea, vomiting, GERD, symptoms of DVT such as calf tenderness, or leg swelling, or pulmonary embolism such as chest pain or shortness of breath. The patient was also instructed to stay in bed except for bathroom, requiring assistance to get OOB. The patient had been given prescriptions for Tylenol for pain, Zofran prn for nausea, and antibiotics. The patient was encouraged to use the incentive spirometer. All of these instructions were given to the patient personally. All questions were answered and the patient understood all instructions, the instructions were also given to the patient in print. Time Attestation Total time managing care of this patient today: 25 mintues. Discharge Coordination Time (in mins): 25 Quality: Safe Use of Opioids Does Pt have an Active Cancer Diagnosis on the Problem List?: No Quality: Stroke Does the patient have a stroke diagnosis?: No Physical Exam Vital Signs: Vital Signs: Last Vital Signs Temp 97.4 F 10/13/24 07:02 Pulse 60 10/13/24 07:02 Resp 20 10/13/24 03:07 BP 96/52 L 10/13/24 03:07 Pulse Ox 99 10/13/24 07:02 O2 Del Method Room Air 10/13/24 07:02 BMI result Body Mass Index 22.8 DS: Data Data Completed and Pending Completed studies during hospitalization [Text1]: Procedures Excision of Stomach, Percutaneous Endoscopic Approach, Vertical (12/05/22) Pending studies at discharge: Pending at discharge 10/12/24 10:26 Surgical [PTH] Routine Discharge Plan Discharge Patient Disposition: Home, Self-Care Referrals: Dorothy Batista MD [Primary Care Provider] - 1 Week Discharge Medications: No Action cephalexin 500 mg capsule 500 mg PO Q12H Qty: 60 2RF ondansetron 4 mg tablet,disintegrating 4 mg PO Q12H Qty: 20 0RF docusate sodium [Colace] 100 mg capsule 100 mg PO DAILY Qty: 90 0RF Discharge Orders: Discharge Order (Routine); Ordered 10/13/24 Ordered By: Tanner Nicholson Activity Restrictions/Additional Instructions: 1) Start Keflex antibiotic 2) No showers. Only sponge baths 3) Avoid any tension at the abdomen and always have help getting up. Keep knees slighly bent and upper torso flexed forward. No abdominal stretching 4) Take 1 tab of Colace and one tablespoon of Metamucil daily Diet: 4 Orgain protein shakes with 1 scoop in 8oz of almond milk each one and one Fit Crunch bar until you have a bowel movement. Once you have a bowel movement please change diet plan to one Orgain shake (HALF scoop in 8oz almond milk) at 9am-11am, one Fit Crunch protein bar (buy at [employer]) at 12pm-2pm, one Orgain shake (HALF scoop in 8oz almond milk at 3pm-5pm, one meal at 6pm (6 forks of protein and 6 forks of salad or vegetables). If needed, do another HALF bar at 8pm-9pm if you feel hungry. This will improve weight loss and healing after surgery. Do not stop or reduce shakes and bars. They are very important for your healing 5) Change dressings daily and send pictures to Dr. Nicholson. Replace loose steri-strips and xeroform gauze along the incisions.On top of the xeroform gauzes place 4x4 dressings and paper tape 6) Supplies needed: Kerlex rolls, 4x4 dressings, xeroform gauze, 1/2'' steri-strips, paper tape. You will need to use several of the above supplies on a daily basis. 7) Avoid heavy lifting for 3 weeks 8) Take Tylenol 500mg every 4 hours, around the clock for the next 3-4 days. If pain has improved you may slowly reduce its frequency 9) Avoid aspirin, Motrin, Aleve, Advil, Naproxyn, Ibuprofen for 2 weeks 7) Call Dr. Nicholson at [phone] for fever >101F, persistent incisional pain,, discharge from any of the incisions, swelling, redness, shortness of breath, calf pain 8) A visiting nurse will be seeing you daily to help with dressing changes 9) Measure accurately the drain output and record it in a paper for 24 hour periods (7am to 7am). Please bring that sheet with you at your next office appointment.? Print Language: Setswana
[2024-10-13] MEDS: Docusate Sodium 100 MG CAPSULE PO (08:23)
== END 2024-10-13 08:42 | disposition home or self-care (01) ==
LOC: HO.SSS 07:36 → HO.S3 11:48
PROVIDERS: Nurse Practitioner; PCP Internal Medicine; Visit Provider Surgery
PROC: 0JB80ZZ Excision of Abdomen Subcutaneous Tissue and Fascia, Open Approach (ICD-10-PCS; CPT 15830; principal; 2024-10-12 07:30)
DX: L98.7 Excessive and redundant skin and subcutaneous tissue (principal); E65 Localized adiposity; M79.3 Panniculitis, unspecified; K91.2 Postsurgical malabsorption, not elsewhere classified; Y83.8 Other surgical procedures as the cause of abnormal reaction of the patient, or of later complication, without mention of misadventure at the time of the procedure; G89.18 Other acute postprocedural pain; Z98.84 Bariatric surgery status; Z90.3 Acquired absence of stomach [part of]; Z79.899 Other long term (current) drug therapy; Z87.442 Personal history of urinary calculi
CPT/HCPCS: 15830; 15847; 81025; 86850; 86900; 86901; 88304; J0131; J0690; J1100; J1171; J2003; J2004; J2250; J2405; J2704; J2765; J3010; J3370; J7120

== ENCOUNTER → 2024-10-12 05:44 | Outpatient (BNV) | payer OTHER, SELFPAY | PROVIDERS: PCP Internal Medicine; Visit Provider Surgery | DX: L98.7 Excessive and redundant skin and subcutaneous tissue (principal); Z98.890 Other specified postprocedural states | CPT/HCPCS: 15830; 99024; 99499 ==

== ENCOUNTER 2024-10-19 09:27 | Outpatient (AMB) | payer OTHER, SELFPAY ==
--- NOTE | 2024-10-19 09:39 | MHC.OFFVISWM ---
VS Expanded 10/19/24 09:55 BP 108/61 Blood Pressure Location Rt brachial Blood Pressure Position Sitting Pulse 57 Pulse Source Pulse Oximeter Temp 97.5 F Temperature Source Temporal Artery Scan Pulse Oximetry 99 Oxygen Delivery Method Room Air Intake Visit Reasons: OV PO Panniculectomy 10/12/24 Allergies No Known Allergies Allergy (Verified 10/19/24 09:55) HPI Comments Details: Patient is a pleasant 33-year-old female who returns to the office today in follow-up. She is status post panniculectomy on 10/12/2024. She reports overall doing fairly well. Has no significant complaints. Tolerating antibiotics and following the meal plan. She reports proximally 25-30 mL serosanguineous fluid from the collection bulb. Additionally, she did get a reactionary dermatitis from the binder. Advised to place a barrier between her skin in the binder such as a T-shirt or tank top. PENDING SALE TO [facility] Medical History (Updated 10/15/24 @ 00:01 by Lili Amato) Asthma Depression Anxiety Postgastrectomy malabsorption PTSD (post-traumatic stress disorder) History of kidney stones Surgical History (Updated 10/19/24 @ 09:56 by Deepthi Archer CMA) S/P panniculectomy S/P laparoscopic sleeve gastrectomy History of lithotripsy Family History Sister Substance use disorder Mental health disorder Brother Substance use disorder Mental health disorder Mother Substance use disorder Mental health disorder Father Substance use disorder Mental health disorder Other Patient unsure of family history Social History Household Members: Significant Other Housing: Apartment Are you a primary manager career to a significant other at home: No Do you presently have visiting nurse or other home services: No Patient Tobacco Use Status: Never used Tobacco e-Cigarette/Vaping Use: Currently Using Substance Use Type: Marijuana service: No Current occupational status: employed Cognitive needs: No Hearing needs: No Vision needs: Yes Physical Exam Vital Signs: Last Vital Signs Temp 97.5 F 10/19/24 09:55 Pulse 57 10/19/24 09:55 BP 108/61 10/19/24 09:55 Pulse Ox 99 10/19/24 09:55 Oxygen Delivery Method Room Air 10/19/24 09:55 Skin Other: Transverse incision healing nicely. No evidence of dehiscence or infection. Umbilicus is also healing nicely. No evidence of infection. Some very mild cyanosis at the incision suture line, base completely normal. Assessment & Plan Assessment & Plan (1) S/P panniculectomy: Code(s): Z98.890 - Other specified postprocedural states Category: Surgical Plan: Status post panniculectomy on 10/12/2024. Continue to monitor drain output. Continue antibiotics and meal plan. Continue abdominal binder. Return to clinic 1 week.
[2024-10-19 09:55] VITALS: BP 108/61; PULSE 57; TEMP 36.4; O2SAT 99
--- OUTSIDE RECORDS SUMMARY | 2024-10-19 10:13 | XMS_ITS | Patient Health Record ---
Author Organization [facility] Address [address] [place] [address] Care Team Providers Care Liner Helper Name Role Phone SHERRILL JAMISON Primary Care Provider UnavailCher Jarrett Unavailable [phone] Allergies No Known Allergies Results Component Value Reference Range Notes Urine Culture, Routine-[id number] Reviewed date:05/11/2024 12:38:46 PM Interpretation: Performing Lab:[facility], [address] [facility], Phone - [phone], Director - Amos Notes/Report: Urine Culture, Routine [...] Tobramycin S Trimethoprim/Sulfa R CBC With Differential/Platel et-[id number] Reviewed date:05/10/2024 08:03:15 AM Interpretation: Performing Lab:[facility], [address] [facility], Phone - [phone], Director - Amos Notes/Report: WBC 9.2 3.4-10.8 x10E3/uL Effective May 16, 2024 profile [id number] WBC will be made non-orderable as a [...] Grans (Abs) 0.1 0.0-0.1 x10E3/uL hCG,Beta Subunit, Qnt-[id number] Reviewed date:05/10/2024 08:10:04 AM Interpretation: Performing Lab:[facility], [address] [place] [address], Phone - [phone], Director - Alexander Notes/Report: hCG,Beta Subunit,Qnt,Serum <1 [...] loss, preeclampsia, delivery and growth restriction. Urinalysis, Complete-[id number] Reviewed date:05/11/2024 12:39:20 PM Interpretation: Performing Lab:[facility], [address] [facility], Phone - [phone], Director - Amos Notes/Report: Specific Grethel 1.020 1.005-1.030 pH 6.0 5.0-7.5 Urine-Color Yellow [...] Lab: Notes/Report: Test, Urine Negative Urinalysis Reviewed date:03/02/2024 01:03:49 PM Interpretation: Performing Lab: Notes/Report: PH 5.0 PROTEIN Neg GLUCOSE Neg BLOOD Neg 405815-Oil IGP, CtNg Culture 30 Plus Reviewed date:03/08/2024 07:54:10 AM Interpretation: Performing Lab:[facility], [address], [address], [place], Phone - [phone], Director - Alexander Notes/Report: Clinical Information:[id number] LMP / Prev Treat...QVW=[id number] Dates / Results....11/28/20 NIL No. of containers..01 ThinPrep Vial DIAGNOSIS: NEGATIVE FOR INTRAEPITHELIAL LESION OR MALIGNANCY. Specimen adequacy: Satisfactory for evaluation. Endocervical and/or squamous metaplastic cells (endocervical component) are present. Clinician provided ICD10: Z01.419 Z72.51 Performed by: Evelyne hodges, Linux System Administrator (ASCP) . . Note: The Pap smear [...] date:03/08/2024 07:53:52 AM Interpretation: Performing Lab:[facility], [address] [place] [address], Suite [facility], [place], Phone - [phone], Director - Alexander Notes/Report: Clinical Information:[id number] LMP / Prev Treat...NFN=[id number] Dates / Results....11/28/20 NIL No. of containers..01 ThinPrep Vial Urinalysis, Complete-[id number] Reviewed date:06/02/2024 08:03:26 AM Interpretation: Performing Lab:[facility], [address] [facility] [place], Phone - [phone], Director - Amos Notes/Report: Clinical Information:LEONARDO UTI SRC:UC Clinical Information:LEONARDO UTI SRC:UC Specific Grethel 1.020 1.005-1.030 pH 6.5 5.0-7.5 Urine-Color Yellow [...] N/A Bacteria Many None seen/Few Urine Culture, Routine-[id number] Reviewed date:06/02/2024 02:20:45 PM Interpretation: Performing Lab[facility], Phone - [phone], Director - Amos Notes/Report: Clinical Information:LEONARDO UTI SRC:UC Clinical Information:LEONARDO UTI SRC:UC Urine Culture, Routine Final report Result 1 Mixed urogenital karyna 50,000-100,000 colony forming units per mL PDF Report Reviewed date:06/02/2024 08:01:52 AM Interpretation: Performing Lab:[facility], Phone - [phone], Director - Amos Notes/Report: Clinical Information:LEONARDO UTI SRC:UC PDF Report Reviewed date:05/10/2024 08:02:58 AM Interpretation: Performing Lab:[facility], [address] [place] [address], Phone - [phone], Director - Alexander Notes/Report: PDF Report Reviewed date:05/10/2024 08:02:50 AM Interpretation: Performing Lab:[facility], Phone - [phone], Director - Amos Notes/Report: PDF Report Reviewed date:05/11/2024 12:33:09 PM Interpretation: Performing Lab:[facility] [place], Phone - [phone], - Amos Notes/Report: Reason For Referral No Information Medications [...] Status Risk Notes Problem Contraception care education (090136343) Encounter for other general counseling and advice on contraception (Z30.09) Active confirmed Problem Morbid obesity (disorder) (986210652) Morbid (severe) obesity due to excess calories (E66.01) Active confirmed Problem Amenorrhea (96017557) Amenorrhea, unspecified (N91.2) Active confirmed Problem Irregular Menstruation (96213896) Other specified irregular menstruation (N92.5) Active confirmed Problem Abnormal vaginal bleeding (907458708) Other specified abnormal uterine and vaginal bleeding (N93.8) Active confirmed Problem Calculus of kidney (74636615) Calculus of kidney (592.0) Active confirmed Major Problem Gynecological examination normal (028204899015148) Routine gynecological examination (V72.31) Active confirmed Major Vital Signs Temperature 98.1 degrees Fahrenheit 05/09/2024 Blood pressure diastolic 68 mm Hg 05/09/2024 Height 63.5 in 05/09/2024 Blood pressure systolic 108 mm Hg 05/09/2024 Weight 132 lbs 05/09/2024 BMI 23.01 kg/m2 05/09/2024 Encounters Encounter Location Date Provider Diagnosis [facility] [place] [address] [place] [phone] 03/02/2024 Cher Anderson Encounter for gynecological examination (general) (routine) without abnormal findings Z01.419 ; High risk heterosexual behavior Z72.51 ; Encounter for surveillance of contraceptives, unspecified Z30.40 and Other specified counseling Z71.89 [facility] [address] [address] 05/09/2024 Cheremani Anderson Other specified abnormal uterine and vaginal bleeding N93.8 and Urinary tract infection, site not specified N39.[address] [facility] [address] [address] 05/10/2024 Cheremani GonzalezAnderson [facility] [address] [facility] [address] [address] 03/02/2024 Cher Anderson [facility] [address] [address] 05/09/2024 Cher Anderson [facility] [address] [facility] [address] [address] 05/11/2024 Cher Anderson [facility] [address] [address] 05/30/2024 Cher Anderson Urinary tract infection, site not specified N39.0 [facility] [address] [facility] [address] [address] [address] 06/02/2024 Cheremani Emanuelva Urgency of urination R39.15 [...] PREP,HPV IF ASCUS, CT/GC (21-29YR) 12/31/2017 Urinalysis, Complete-[id number] 06/02/2024 Urine Culture, Routine-[id number] 06/02/2024 Next Appt Details Provider Name:Cher pascual, 03/06/2025 09:00:00 AM, [address], [place], [address], Insurance Providers Payer Name Payer Address Payer Phone Subscriber Number Group Number Insured Name Patient Relationship to Insured Coverage Start Date Coverage End Date [facility] [address] [facility] [place] [id number] EILEEN PILLAI Self - patient is [...]
--- OUTSIDE RECORDS SUMMARY | 2024-10-19 10:13 | XMS_ITS ---
Author Organization [facility] Address [address] [facility] [address] [place] [address] Care Team Providers Care Donor Services Manager Name Role Phone SHERRILL JAMISON Primary Care Provider UnavailCher Jarrett Unavailable [phone] Results Component Value Reference Range Notes Urinalysis, Complete-[id number] Reviewed date:06/02/2024 08:03:26 AM Interpretation: Performing Lab:[facility] [place], [employer] [facility], Phone - [phone], Director - Amos Notes/Report: Clinical Information:LEONARDO UTI SRC:UC Clinical Information:LEONARDO UTI SRC:UC Specific Holt 1.020 1.005-1.030 pH 6.5 5.0-7.5 Urine-Color Yellow [...] N/A Bacteria Many None seen/Few Urine Culture, Routine-[id number] Reviewed date:06/02/2024 02:20:45 PM Interpretation: Performing Lab:[facility] [place], [address] [facility], [place], Phone - [phone], Director - Amos Notes/Report: Clinical Information:LEONARDO UTI SRC:UC Clinical Information:LEONARDO UTI SRC:UC Urine Culture, Routine Final report Result 1 Mixed urogenital karyna 50,000-100,000 colony forming units per mL PDF Report Reviewed date:06/02/2024 08:01:52 AM Interpretation: Performing Lab:[facility], [address] [facility], [place], Phone - [phone], Director - Amos Notes/Report: Clinical Information:LEONARDO UTI SRC:UC REASON FOR VISIT STILL FEELS LIKE UTI Encounters Encounter Location Date Provider Diagnosis [facility] [address] [place] [address] 05/30/2024 Cher Anderson Urinary tract infection, site not specified N39.0 Assessments Encounter Date Diagnosis (ICD Code) Assessment Notes Treatment Notes Treatment Clinical Notes Section Notes 05/30/2024 Urinary tract infection, site not specified (ICD-10 - N39.0) Plan Of Treatment Next Appt Details Provider Name:Cher Gonzalez [facility], 03/06/2025 09:00:00 AM, [address], [address], [place], [address], Progress Notes * EILEEN PILLAIDOB:1990 (33 yo F)Acc No.[id number]:05/30/2024 Patient:?EILEEN PILLAI :1990???Age:33 Y???Sex:Female Address:[address] [place] [address], [place], [address] Subjective: * Chief Complaints: * ???STILL FEELS LIKE UTI * Medical History:? * Surgical History:? * Hospitalization/Major Diagno stic Procedure:? * Medications:? Objective: * Vitals:? * Physical Examination:? Assessment: * Assessment: 1.?Urinary tract infection, site not specified - N39.0??? Plan: * Treatment: ? Value Reference Range ?Specific Holt 1.020 1.005- 1.030 - * ?pH 6.5 [...] - * LEONARDO UTI ?LAB: Urine Culture, Routine-[id number] (Collection Date & Time - 05/31/2024 11:08 [...] Codes:? * true * Date:? Generated for Martini ng/Sergey/eTransmitting on:?10/19/2024 10:13 AM EDT
--- OUTSIDE RECORDS SUMMARY | 2024-10-19 10:14 | XMS_ITS | Data Portability ---
Author Organization [place] - [facility] Address [address] [place] [address] Assessment Encounter Date Assessment Date Assessment LastModified by Organization Details LastModified Time 10/10/2009 10/10/2009 SAMLL GANGLION CYST DBA_PATCH_ [id number] Not available 01/13/2011 02:10:01 02/24/2011 02/24/2011 20 yo female with CP assoc with URI/fever - suboptimal exam of lungs due to pt discomfort, CXR ordered - Mom to go to [facility] and await call from me with results, if neg would have pt seen in ED to determine cause, if + pneumonia will Rx with abx kcamera Not available 02/24/2011 17:56:50 Plan of Treatment Reminders Order Date Submit Date Provider Last Modified By Organization Details Last Modified Time Details Appointments None recorded. Lab pulse oximetry lab 2010 011 [facility], [address] [place] [address], [phone], 3 03:09:40 Referral None recorded. Procedures None recorded. Surgeries None recorded. Imaging x-ray, chest - CP with deep inspiration - rule out pneumonia or other pathology 2010 011 [facility] Not available 3 03:09:40 Medication Orders None recorded. Patient TargetsNo targets recorded. Patient Instructions Encounter Date Encounter Id Patient Instructions Last Modified By Organization Details Last Modified Time 10/10/2009 [id number] Rx: NONE AT PRESENT --- WILL CALL AREA BECOMES TENDER OR LARGER IN SIZE -> THEN TO HAND SURGEON DBA_PATCH_ Not available 01/13/2011 02:08:16 10/31/2009 [id number] cont diet and exercise; weight goal for next year 160's; gardasil info given [id number] Not available 01/13/2011 02:08:55 Reason for Referral None Reported. Results Created Date Observation Date Name Description Value Unit Range Abnormal Flag Note LastModifiedBy Organization Detail LastModifiedTime 02/25/20 11 02/24/2011 pulse oxime try lab O2 Saturation 98 Not Available [facility] [address] [place] [address], [phone], 02/24/2011 17:32:10 02/25/20 11 02/24/2011 x-ray , chest No observ ation record ed. [address] [place], [place], [address], 01/07/2013 03:09:40 Result Notes None recorded. Problems Name Problem SNOMED Code Status Onset Date Resolution Date Notes Provider Name and Address Organization Details Recorded Time Acute conjunctivi tis 08029922 Active 2008 Not Available [facility] 3 03:01:06 Abnormal weight gain 440820067 Active 2006 Not Available [facility] 3 03:01:06 Parent-chil d problem 95985213 Active adopted Not Available [facility] 3 03:01:06 Open wound 392286082 Active 2008 Not Available [facility] 3 03:01:06 Ganglion cyst of tendon sheath 49727599 Active Not Available [facility] 3 03:01:06 Chest pain 22778352 Active Not Available [facility] 3 03:01:06 Problem Notes None recorded. Procedures Surgical History Date Name Laterality Status Provider Name and Address Organization Details Recorded Time 06/15/2011 Urologic completed Jonathon Bradley [place] - [facility] 07/28/2011 14:24:27 Imaging Results Imaging Date Name Status LastModified by Organiz ation Details LastModified Time 02/24/2011 x-ray, chest completed [address] [place], [place], [address], 01/07/2013 03:09:40 Procedure Notes None recorded. Medical [...] Details Last Updated DateTime 10/31/2009 162.56 cm 69976.81 134 g 31.2 kg/m2 114 mm[Hg] 62 mm[Hg] Mariely ware [facility] 0 14:17:59 Social History Question [...] virus, trivalent, preservative 1 completed Not Available [facility] 07/02/2019 02:35:17 Novel [id number], nasal 9 completed Not Available [facility] 07/02/2019 02:34:48 varicella 11/04/200 8 completed Not Available [facility] 04/19/2011 03:16:44 influenza, unspecified formulation 8 completed Not Available [facility] 04/19/2011 03:19:09 Influenza, split virus, trivalent, preservative 0 completed Not Available [facility] 07/02/2019 02:34:45 Tdap 0 completed Not Available [facility] 07/02/2019 02:33:40 meningococcal ACWY, unspecified formulation 6 completed Not Available [facility] 04/19/2011 03:17:38 varicella 6 completed Not Available [facility] 04/19/2011 03:17:38 Td(adult) unspecified formulation 4 completed Not Available [facility] 04/19/2011 03:19:09 Influenza, split virus, trivalent, preservative 0 completed Not Available [facility] 07/02/2019 02:35:07 Past Encounters Encounter ID Performer Location Encounter Start Date Encounter Closed Date Diagnosis/Indication Diagnosis SNOMED-CT Code Diagnosis ICD10 Code Diagnosis Note [id number] Jonathon Bradley MD [facility] [address] [place] [address] 12/30/2006 16:17:00 12/30/2006 16:51:47 [id number] Jonathon Bradley MD [facility] [address] [address] [place] [address] 03/03/2007 15:38:38 03/03/2007 16:25:03 [id number] Jonathon Bradley MD [facility] [address] [place] [address] 04/18/2008 11:05:40 04/18/2008 11:51:40 [id number] Jonathon Bradley MD [facility] [address] [place] [address] 06/12/2008 14:43:53 06/12/2008 15:00:56 [id number] Sourav Benson MD [facility] [address] [place] [address] 07/07/2008 13:56:01 07/07/2008 14:19:32 [id number] Mary Quiroga MD [facility] [address] [place] [address] 08/13/2008 11:22:10 08/13/2008 12:03:42 [id number] Ayala Fletcher MD [facility] [address] [place] [address] 08/15/2008 16:52:40 02/22/2009 01:23:50 [id number] Sourav Benson MD [facility] [address] [place] [address] 10/10/2009 15:30:20 10/10/2009 16:29:57 [id number] Jonathon Bradley MD [facility] [address] [address] [place] [address] 10/31/2009 14:12:30 10/31/2009 16:01:33 [id number] Mya Swift MD [facility] [address] [place] [address] 02/24/2011 16:59:51 02/24/2011 17:43:05 Health Concerns Section Related Observation LastModified by Organization Detai ls LastModified Time None Recorded Concern Status LastModified by Organization Details LastModified Time None Recorded Advance Directives Directive None Recorded Payers Encounter Date Sequence Insurance Name Policy Number Policy Jackman Covered Member ID Jackman Member ID Guarantor Name 08/13/2008 1 *SELF PAY* Li sa Lana 08/15/2008 1 *SELF PAY* Li sa Lana 10/10/2009 1 [employer] [id number] [place]i [place] [id number] Abi [place] 10/31/2009 1 [employer] [id number] Abi Lana [id number] Abi Lana 02/24/2011 1 [employer] [id number] Abi [place] [id number] Abi Lana Notes Date Note Type Note Provider Name and Address Organization Details Recorded Time 10/31/2009 text/html ROS neg; LMP 1 month ago, regular, pos cramps (midol); neg VSD Jonathon Bradley [place], [place] - [facility] 10/31/2009 15:46:05 OBGyn Episode No OBEpisode recorded.
--- OUTSIDE RECORDS SUMMARY | 2024-10-19 10:14 | XMS_ITS | Clinical Summary ---
Author Organization [facility] Address [address] [place] [address] Care Team Providers Care Bunk Assembler Name Role Phone Unavailable Primary Care Provider [...] 1-dose 75+ series) 10/28/2067 [place] [id number] [employer]
--- OUTSIDE RECORDS SUMMARY | 2024-10-19 10:14 | XMS_ITS ---
Author Organization [facility] Address [address] [place] [address] [address] [place] [address] Care Team Providers Care Medical Support Specialist Name Role Phone SHERRILL JAMISON Primary Care Provider Cher Velasquez Unavailable [phone] REASON FOR VISIT Urine Order Encounters Encounter Location Date Provider Diagnosis [facility] [address] [address] 06/02/2024 Cher Anderson Urgency of urination R39.15 Assessments Encounter Date Diagnosis (ICD Code) Assessment Notes Treatment Notes Treatment Clinical Notes Section Notes 06/02/2024 Urgency of urination (ICD-10 - R39.15) Plan Of Treatment Pending Test Test Name Order Date Urinalysis, Complete-[id number] 06/02/2024 Urine Culture, Routine-[id number] 06/02/2024 Next Appt Details Provider Name:Cher pascual, 03/06/2025 09:00:00 AM, [address] [place] [address], [address], [place], [address], Progress Notes * EILEEN PILLAIDOB:1990 (33 yo F)Acc No.[id number]:06/02/2024 Patient:?ROSASCLIVEYN :1990???Age:33 Y???Sex:Female Address:[address] [place] [address], [place], [address] Subjective: * Chief Complaints: * ???Urine Order * Medical History:? * Surgical History:? * Hospitalization/Major Diagno stic Procedure:? * Medications:? Objective: * Vitals:? * Physical Examination:? Assessment: * Assessment: 1.?Urgency of urination - R3 9.15??? Plan: * Treatment: * Procedure Codes:? * true * Date:? Generated for Miguel jordan/Sergey/Gayle on:?10/19/2024 10:14 AM EDT
--- OUTSIDE RECORDS SUMMARY | 2024-10-19 10:14 | XMS_ITS ---
Author Organization [facility] Address [address] [place] [address] Care Team Providers Care Medical Records Assistant Name Role Phone SHERRILL JAMISON Primary Care Provider Cher Velasquez [phone] Medications Medication SIG (Take, Route, Fr equency, Duration) Notes Start Date End Date Status Augmentin 500-125 MG 1 tablet Orally Twi ce a day for 7 days 05/11/2024 Active Encounters Encounter Location Date Provider Diagnosis [facility] [address] [address] 05/11/2024 Cher Anderson Plan Of Treatment Medication Medication Name Sig Start Date Stop Date Notes Augmentin 500-125 MG 1 tablet Orally Twi ce a day for 7 days 05/11/2024 Next Appt Details Provider Name:Cher pascual, 03/06/2025 09:00:00 AM, [address] [place] [address], [address], [place], [address], Progress Notes * ROSAS EILEENDOB:1990 (33 yo F)Acc No.[id number]:05/11/2024 Patient:?EILEEN PILLAI :1990???Age:33 Y???Sex:Female Address:[address] [place] [address], [place], [address] * Refills? Start Augmentin Tablet, 500-125 MG, Orally, 14 Tablet, 1 tablet, Twice a day, 7 days, Refills=0 * true * Date:? Generated for Miguel jordan/Sergey/Gayle on:?10/19/2024 10:13 AM EDT
== END 2024-10-19 10:08 | disposition home or self-care (01) ==
LOC: HO.HBS 09:28
PROVIDERS: PCP Internal Medicine; Visit Provider Physician Assistant Surgical
DX: Z98.890 Other specified postprocedural states (principal)
CPT/HCPCS: 99024

== ENCOUNTER 2024-10-27 09:12 | Outpatient (AMB) | payer OTHER, SELFPAY ==
--- NOTE | 2024-10-27 09:34 | A.OFFVIS_ITS ---
VS Expanded 10/27/24 09:38 BP 89/55 L Blood Pressure Location Lt brachial Blood Pressure Position Sitting Pulse 67 Pulse Source Pulse Oximeter Temp 98.2 F Temperature Source Temporal Artery Scan Pulse Oximetry 97 Oxygen Delivery Method Room Air Intake Visit Reasons: OV PO Panniculectomy 10/12/24 Allergies No Known Allergies Allergy (Verified 10/27/24 09:39) HPI Comments Details: 34-year-old female returns to the office today in follow-up. She is status post panniculectomy on 10/12/2024. She continues to take the antibiotics as prescribed as well as following the meal plan as directed by Dr. Nicholson. She reports a proximally 15-20 mL of serous fluid from the collection bulb. [facility] Medical History (Updated 10/15/24 @ 00:01 by Lili Amato) Asthma Depression Anxiety Postgastrectomy malabsorption PTSD (post-traumatic stress disorder) History of kidney stones Surgical History S/P panniculectomy S/P laparoscopic sleeve gastrectomy History of lithotripsy Family History Sister Substance use disorder Mental health disorder Brother Substance use disorder Mental health disorder Mother Substance use disorder Mental health disorder Father Substance use disorder Mental health disorder Other Patient unsure of family history Social History Household Members: Significant Other Housing: Apartment Are you a primary toddler caregiver to a significant other at home: No Do you presently have visiting nurse or other home services: No Patient Tobacco Use Status: Never used Tobacco e-Cigarette/Vaping Use: Currently Using Substance Use Type: Marijuana service: No Current occupational status: employed Cognitive needs: No Hearing needs: No Vision needs: Yes Physical Exam Skin Other: Transverse and umbilical incisions healing nicely. No evidence of dehiscence or infection. Assessment & Plan Assessment & Plan (1) S/P panniculectomy: Code(s): Z98.890 - Other specified postprocedural states Category: Surgical Plan: Overall doing very well. Continue to monitor drain output. Continue to wear abdominal binder. Continue antibiotics and meal plan. Return to clinic 1 week.
[2024-10-27 09:38] VITALS: BP 89/55; PULSE 67; TEMP 36.8; O2SAT 97
--- OUTSIDE RECORDS SUMMARY | 2024-10-27 09:47 | XMS_ITS | Clinical Summary ---
Author Organization [facility] Address [address] [place] [address] Care Team Providers Care Vault Worker Name Role Phone Unavailable Primary Care Provider [...] 2024 Influenza Vaccine (Season Ended) 2025 03/31/20 22 RSV Vaccine (SCDM) (1 - 1-dose 75+ series) 10/28/2067 [place] [id number] [employer]
--- OUTSIDE RECORDS SUMMARY | 2024-10-27 09:47 | XMS_ITS | Data Portability ---
Author Organization [place] - [facility], [facility] Address [address] [place] [address] Assessment Encounter Date Assessment Date Assessment LastModified by Organization Details LastModified Time 10/10/2009 10/10/2009 SAMLL GANGLION CYST DBA_PATCH_ 801 Not available 01/13/2011 02:10:01 02/24/2011 02/24/2011 20 yo female with CP assoc with URI/fever - suboptimal exam of lungs due to pt discomfort, CXR ordered - Mom to go to [facility] and await call from me with results, if neg would have pt seen in ED to determine cause, if + pneumonia will Rx with abx kcamera Not available 02/24/2011 17:56:50 Plan of Treatment Reminders Order Date Submit Date Provider Last Modified By Organization Details Last Modified Time Details Appointments None recorded. Lab pulse oximetry lab 2010 011 [facility], [address] [place] [address], [phone], 3 03:09:40 Referral None recorded. Procedures None recorded. Surgeries None recorded. Imaging x-ray, chest - CP with deep inspiration - rule out pneumonia or other pathology 2010 011 [facility] Not available 3 03:09:40 Medication Orders None recorded. Patient TargetsNo targets recorded. Patient Instructions Encounter Date Encounter Id Patient Instructions Last Modified By Organization Details Last Modified Time 10/10/2009 [id number] Rx: NONE AT PRESENT --- WILL CALL AREA BECOMES TENDER OR LARGER IN SIZE -> THEN TO HAND SURGEON DBA_PATCH_ Not available 01/13/2011 02:08:16 10/31/2009 [id number] cont diet and exercise; weight goal for next year 160's; gardasil info given [id number]_[id number] Not available 01/13/2011 02:08:55 Reason for Referral None Reported. Results Created Date Observation Date Name Description Value Unit Range Abnormal Flag Note LastModifiedBy Organization Detail LastModifiedTime 02/25/20 11 02/24/2011 pulse oxime try lab O2 Saturation 98 Not Available [facility] [address] [place] [address], [address], 02/24/2011 17:32:10 02/25/20 11 02/24/2011 x-ray , chest No observ ation record ed. [address] [place], [place], [address], 01/07/2013 03:09:40 Result Notes None recorded. Problems Name Problem SNOMED Code Status Onset Date Resolution Date Notes Provider Name and Address Organization Details Recorded Time Acute conjunctivi tis 74052123 Active 2008 Not Available [facility] 3 03:01:06 Abnormal weight gain 756896705 Active 2006 Not Available [facility] 3 03:01:06 Parent-chil d problem 59929229 Active adopted Not Available [facility] 3 03:01:06 Open wound 196544411 Active 2008 Not Available [facility] 3 03:01:06 Ganglion cyst of tendon sheath 72208273 Active Not Available [facility] 3 03:01:06 Chest pain 52293857 Active Not Available [facility] 3 03:01:06 Problem Notes None recorded. Procedures Surgical History Date Name Laterality Status Provider Name and Address Organization Details Recorded Time 06/15/2011 Urologic completed Jonathon Bradley [place] - [facility] 07/28/2011 14:24:27 Imaging Results Imaging Date Name Status LastModified by Organiz ation Details LastModified Time 02/24/2011 x-ray, chest completed [address] [place], [place], [address], 01/07/2013 03:09:40 Procedure Notes None recorded. Medical [...] Details Last Updated DateTime 10/31/2009 162.56 cm 37254.81 134 g 31.2 kg/m2 114 mm[Hg] 62 mm[Hg] Mariely ware M.A. [facility] 0 14:17:59 Social History Question [...] virus, trivalent, preservative 1 completed Not Available [facility] 07/02/2019 02:35:17 Novel [id number]-[id number], nasal 9 completed Not Available [facility] 07/02/2019 02:34:48 varicella 11/04/200 8 completed Not Available [facility] 04/19/2011 03:16:44 influenza, unspecified formulation 8 completed Not Available [facility] 04/19/2011 03:19:09 Influenza, split virus, trivalent, preservative 0 completed Not Available [facility] 07/02/2019 02:34:45 Tdap 0 completed Not Available [facility] 07/02/2019 02:33:40 meningococcal ACWY, unspecified formulation 6 completed Not Available [facility] 04/19/2011 03:17:38 varicella 6 completed Not Available [facility] 04/19/2011 03:17:38 Td(adult) unspecified formulation 4 completed Not Available [facility] 04/19/2011 03:19:09 Influenza, split virus, trivalent, preservative 0 completed Not Available [facility] 07/02/2019 02:35:07 Past Encounters Encounter ID Performer Location Encounter Start Date Encounter Closed Date Diagnosis/Indication Diagnosis SNOMED-CT Code Diagnosis ICD10 Code Diagnosis Note [id number] Jonathon Bradley MD [facility] [place] [address] 12/30/2006 16:17:00 12/30/2006 16:51:47 [id number] Jonathon Bradley MD [facility] [address] [place] [address] 03/03/2007 15:38:38 03/03/2007 16:25:03 [id number] Jonathon Bradley MD [facility] [address] [place] [address] 04/18/2008 11:05:40 04/18/2008 11:51:40 [id number] Jonathon Bradley MD [facility] [address] [place] [address] 06/12/2008 14:43:53 06/12/2008 15:00:56 [id number] Sourav Benson MD [facility] [address] [place] [address] 07/07/2008 13:56:01 07/07/2008 14:19:32 [id number] Mary Quiroga MD [facility] [place] [address] 08/13/2008 11:22:10 08/13/2008 12:03:42 [id number] Ayala Fletcher MD [facility] [place] [address] 08/15/2008 16:52:40 02/22/2009 01:23:50 [id number] Sourav Benson MD [facility] [address] [facility] [place] [address] 10/10/2009 15:30:20 10/10/2009 16:29:57 [id number] Jonathon Bradley MD [facility] [address] [place] [address] 10/31/2009 14:12:30 10/31/2009 16:01:33 [id number] Mya Swift MD [facility] [address] [place] [address] 02/24/2011 16:59:51 02/24/2011 17:43:05 Health Concerns [...] PAY* Li sa Lana 10/10/2009 1 [employer] [id number] Abi Lana [id number] Abi Lana 10/31/2009 1 [employer] [id number] Abi [place] [id number] Abi Lana 02/24/2011 1 [employer] [id number] Abi Lana [id number] Abi [place] Notes Date Note Type Note Provider Name and Address Organization Details Recorded Time 10/31/2009 text/html ROS neg; LMP 1 month ago, regular, pos cramps (midol); neg VSD Jonathon Bradley [place], [place] - [facility] 10/31/2009 15:46:05 OBGyn Episode No OBEpisode recorded.
--- OUTSIDE RECORDS SUMMARY | 2024-10-27 09:47 | XMS_ITS | Patient Health Record ---
Author Organization [facility] Address [address] [facility] [address] [place] [address] Care Team Providers Care Carton Forming Machine Helper Name Role Phone SHAHEEN ROSHNIHafsa Primary Care Provider UnavailCher Jarrett Unavailable [phone] Allergies No Known Allergies Results Component Value Reference Range Notes Urinalysis, Complete-[id number] Reviewed date:05/11/2024 12:39:20 PM Interpretation: Performing Lab:[facility] [place], [address] [facility], Phone - [phone], Director - Amos Notes/Report: Specific [place] 1.020 1.005-1.030 pH 6.0 5.0-7.5 Urine-Color Yellow [...] /lpf Bacteria Many None seen/Few hCG,Beta Subunit, Qnt-[id number] Reviewed date:05/10/2024 08:10:04 AM Interpretation: Performing Lab:[facility], [address] [place] [address], Phone - [phone], Director - JULIUScox northmendoza Notes/Report: hCG,Beta Subunit,Qnt,Serum <1 <5 MIU/ML Males [...] delivery and growth restriction. CBC With Differential/Platel et-[id number] Reviewed date:05/10/2024 08:03:15 AM Interpretation: Performing Lab:[facility] [place], [address] [place] [address], [place], Phone - [phone], Director - Amos Notes/Report: WBC 9.2 3.4-10.8 x10E3/uL Effective May 16, 2024 profile [id number] WBC will be made non-orderable as a [...] Grans (Abs) 0.1 0.0-0.1 x10E3/uL Urine Culture, Routine-32875 7 Reviewed date:05/11/2024 12:38:46 PM Interpretation: Performing Lab:[facility], [address] [facility], Phone - [phone], Director - Amos Notes/Report: Urine Culture, Routine [...] Report Reviewed date:05/10/2024 08:02:58 AM Interpretation: Performing Lab:[facility], [address] [place] [address], Phone - [phone], Director - Alexander Notes/Report: PDF Report Reviewed date:05/10/2024 08:02:50 AM Interpretation: Performing Lab:[facility], [address] [facility], Phone - [phone], Director - Amos Notes/Report: [id number] IGP, CtNg Culture 30 Plus Reviewed date:03/08/2024 07:54:10 AM Interpretation: Performing Lab:[facility], [address], [address], [place], Phone - [phone], Director - Alexander Notes/Report: Clinical Information:[id number] LMP / Prev Treat...VSJ=[id number] Dates / Results....11/28/20 NIL No. of containers..01 ThinPrep Vial DIAGNOSIS: NEGATIVE FOR INTRAEPITHELIAL LESION OR MALIGNANCY. Specimen adequacy: Satisfactory for evaluation. Endocervical and/or squamous metaplastic cells (endocervical component) are present. Clinician provided ICD10: Z01.419 Z72.51 Performed by: Evelyne hodges, Clinical Social Work Aide ([facility]) . . Note: The Pap smear is [...] Nuc. Acid Amp Negative Negative Urinalysis Reviewed date:05/09/2024 12:05:02 PM Interpretation: Performing Lab: Notes/Report: NITRITE Positive PH 5.0 PROTEIN Moderate S.G 1.015 WBC Large GLUCOSE Neg KETONES Moderate UROBILINOGEN Moderate BILIRUBIN Moderate BLOOD Moderate Urinalysis Reviewed date:03/02/2024 01:03:49 PM Interpretation: Performing Lab: Notes/Report: PH 5.0 PROTEIN Neg GLUCOSE Neg BLOOD Neg Test, Urine Reviewed date:05/09/2024 12:04:52 PM Interpretation: Performing Lab: Notes/Report: Test, Urine Negative PDF Report Reviewed date:05/11/2024 12:33:09 PM Interpretation: Performing Lab:[facility], [address] [facility], Phone - [phone], Director Baljit Trinidad Notes/Report: PDF Report Reviewed date:06/02/2024 08:01:52 AM Interpretation: Performing Lab:[facility], [address] [facility], Phone - [phone], Director Baljit Trinidad Notes/Report: Clinical Information:LEONARDO UTI SRC:UC PDF Report Reviewed date:03/08/2024 07:53:52 AM Interpretation: Performing Lab:[facility] [place], [address], [address], [place], Phone - [phone], Director - [facility] Notes/Report: Clinical Information:[id number] LMP / Prev Treat...ZYS=[id number] Dates / Results....11/28/20 NIL No. of containers..01 ThinPrep Vial Urine Culture, Routine-[id number] 7 Reviewed date:06/02/2024 02:20:45 PM Interpretation: Performing Lab:[facility] [place], [address] [facility], [place], Phone - [phone], Director - Amos Notes/Report: Clinical Information:LEONARDO UTI SRC:UC Clinical Information:LEONARDO UTI SRC:UC Urine Culture, Routine Final report Result 1 Mixed urogenital karyna 50,000-100,000 colony forming units per mL Urinalysis, Complete-[id number] Reviewed date:06/02/2024 08:03:26 AM Interpretation: Performing Lab:[facility] [place], [address] [facility], [place], Phone - [phone], Director - Amos Notes/Report: Clinical Information:LEONARDO UTI SRC:UC Clinical Information:LEONARDO UTI SRC:UC Specific [place] 1.020 1.005-1.030 pH 6.5 5.0-7.5 Urine-Color Yellow [...] Calcium Oxalate N/A Bacteria Many None seen/Few Reason For Referral No Information Medications Medication [...] Status Risk Notes Problem Contraception care education (606680203) Encounter for other general counseling and advice on contraception (Z30.09) Active confirmed Problem Morbid obesity (disorder) (795915928) Morbid (severe) obesity due to excess calories (E66.01) Active confirmed Problem Amenorrhea (35138907) Amenorrhea, unspecified (N91.2) Active confirmed Problem Irregular Menstruation (74814247) Other specified irregular menstruation (N92.5) Active confirmed Problem Abnormal vaginal bleeding (225435333) Other specified abnormal uterine and vaginal bleeding (N93.8) Active confirmed Problem Calculus of kidney (79590865) Calculus of kidney (592.0) Active confirmed Major Problem Gynecological examination normal (771699878319819) Routine gynecological examination (V72.31) Active confirmed Major Vital Signs Temperature 98.1 degrees Fahrenheit 05/09/2024 Blood pressure diastolic 68 mm Hg 05/09/2024 Height 63.5 in 05/09/2024 Blood pressure systolic 108 mm Hg 05/09/2024 Weight 132 lbs 05/09/2024 BMI 23.01 kg/m2 05/09/2024 Encounters Encounter Location Date Provider Diagnosis [facility] [place] [address] [place] [address] 03/02/2024 Cher Anderson Encounter for gynecological examination (general) (routine) without abnormal findings Z01.419 ; High risk heterosexual behavior Z72.51 ; Encounter for surveillance of contraceptives, unspecified Z30.40 and Other specified counseling Z71.89 [address] [address] 05/09/2024 Cheremani Anderson Other specified abnormal uterine and vaginal bleeding N93.8 and Urinary tract infection, site not specified N39.[address] [facility] [address] [address] 05/10/2024 Cheremani GonzalezAnderson Total [address] [employer] [address] [address] 03/02/2024 Cher Anderson Total [address] [address] 05/09/2024 Cher Anderson Total [address] [employer] [address] [address] 05/11/2024 Cher Anderson Total [address] [address] 05/30/2024 Cher Anderson Urinary tract infection, site not specified N39.0 [address] [address] 06/02/2024 Cheremani Emanuelva Urgency of urination R39.15 [...] PREP,HPV IF ASCUS, CT/GC (21-29YR) 12/31/2017 Urinalysis, Complete-[id number] 06/02/2024 Urine Culture, Routine-[id number] 06/02/2024 Next Appt Details Provider Name:Cher pascual, 03/06/2025 09:00:00 AM, [address], [address], [place], [address], Insurance Providers Payer Name Payer Address Payer Phone Subscriber Number Group Number Insured Name Patient Relationship to Insured Coverage Start Date Coverage End Date [facility] [address] [facility] [place] [id number] EILEEN PILLAI Self - patient is [...]
== END 2024-10-27 09:52 | disposition home or self-care (01) ==
LOC: HO.HBS 09:13
PROVIDERS: PCP Internal Medicine; Visit Provider Physician Assistant Surgical
DX: Z98.890 Other specified postprocedural states (principal)
CPT/HCPCS: 99024

== ENCOUNTER → 2024-10-27 09:12 | Outpatient (BNVA) | payer OTHER, SELFPAY | PROVIDERS: PCP Internal Medicine; Visit Provider Physician Assistant Surgical ==

== ENCOUNTER 2024-11-02 08:48 | Outpatient (AMB) | payer OTHER, SELFPAY ==
[2024-11-02 09:15] VITALS: BP 103/55; PULSE 68; TEMP 36.7; O2SAT 99
--- NOTE | 2024-11-02 09:15 | MHC.OFFVISWM ---
VS Expanded 11/02/24 09:15 BP 103/55 L Blood Pressure Location Rt brachial Blood Pressure Position Sitting Pulse 68 Pulse Source Pulse Oximeter Temp 98.1 F Temperature Source Temporal Artery Scan Pulse Oximetry 99 Oxygen Delivery Method Room Air Intake Visit Reasons: OV PO Panniculectomy 10/12/24 Allergies No Known Allergies Allergy (Verified 11/02/24 09:15) HPI Comments Details: Patient is a pleasant 34-year-old female who returns to the office today in follow-up. She is status post panniculectomy on 10/12/2024. She continues to take antibiotics, following meal plan. She reports approximately 10-15 mL of fluid from the collection bulb over the last 7 days. Denies any pain. [facility] Medical History (Updated 10/15/24 @ 00:01 by Lili Amato) Asthma Depression Anxiety Postgastrectomy malabsorption PTSD (post-traumatic stress disorder) History of kidney stones Surgical History S/P panniculectomy S/P laparoscopic sleeve gastrectomy History of lithotripsy Family History Sister Substance use disorder Mental health disorder Brother Substance use disorder Mental health disorder Mother Substance use disorder Mental health disorder Father Substance use disorder Mental health disorder Other Patient unsure of family history Social History Household Members: Significant Other Housing: Apartment Are you a primary client care representative to a significant other at home: No Do you presently have visiting nurse or other home services: No Patient Tobacco Use Status: Never used Tobacco e-Cigarette/Vaping Use: Currently Using Substance Use Type: Marijuana service: No Current occupational status: employed Cognitive needs: No Hearing needs: No Vision needs: Yes Physical Exam Vital Signs: Last Vital Signs Temp 98.1 F 11/02/24 09:15 Pulse 68 11/02/24 09:15 BP 103/55 L 11/02/24 09:15 Pulse Ox 99 11/02/24 09:15 Oxygen Delivery Method Room Air 11/02/24 09:15 Skin Other: Transverse and umbilical incisions healing nicely. No evidence of infection or dehiscence. Approximately 10 mL of serous fluid within the collection bulb. Assessment & Plan Assessment & Plan (1) S/P panniculectomy: Code(s): Z98.890 - Other specified postprocedural states Category: Surgical Plan: Patient doing well post panniculectomy. Drain was removed today, covered with dry clean dressing. She may shower in 48 hours. She will continue to wear her abdominal binder. Continue antibiotics for 1 more week. No walking outside the house. Text with any questions or concerns. Return to the office in 2 weeks.
--- OUTSIDE RECORDS SUMMARY | 2024-11-02 10:05 | XMS_ITS | Clinical Summary ---
Author Organization [facility] Address [address] [place] [address] Care Team Providers Care Jd Edwards Developer Name Role Phone Unavailable Primary Care Provider [...] 1-dose 75+ series) 10/28/2067 [place] [id number] [employer]
--- OUTSIDE RECORDS SUMMARY | 2024-11-02 10:05 | XMS_ITS | Data Portability ---
Author Organization [place] - [facility] Address [address] [place] [address] Assessment Encounter Date Assessment Date Assessment LastModified [...] recorded. Lab pulse oximetry lab [address] [facility], [address] [place] [address], [phone], 3 03:09:40 Referral None recorded. Procedures None recorded. Surgeries None recorded. Imaging x-ray, chest - CP with deep inspiration - rule out pneumonia or other pathology 2010 011 [facility] Not available 3 03:09:40 Medication Orders None recorded. Patient TargetsNo targets recorded. Patient Instructions Encounter Date Encounter Id Patient Instructions Last Modified By Organization Details Last Modified Time 10/10/2009 [id number] Rx: NONE AT PRESENT --- WILL CALL AREA BECOMES TENDER OR LARGER IN SIZE -> THEN TO HAND SURGEON [email or web address] Not available 01/13/2011 02:08:16 10/31/2009 [id number] cont diet and exercise; weight goal for next year 160's; gardasil info given [id number] Not available 01/13/2011 02:08:55 Reason for Referral None Reported. Results Created Date Observation Date Name Description Value Unit Range Abnormal Flag Note LastModifiedBy Organization Detail LastModifiedTime 02/25/20 11 02/24/2011 pulse oxime try lab O2 Saturation 98 Not Available [facility] [address] [place] [address], [phone], 02/24/2011 17:32:10 02/25/20 11 02/24/2011 x-ray , chest No observ ation record ed. [address] [place], [place], [address], 01/07/2013 03:09:40 Result Notes None recorded. Problems Name Problem SNOMED Code Status Onset Date Resolution Date Notes Provider Name and Address Organization Details Recorded Time Acute conjunctivi tis 85592821 Active 2008 Not Available [facility] 3 03:01:06 Abnormal weight gain 613659355 Active 2006 Not Available [facility] 3 03:01:06 Parent-chil d problem 50890677 Active adopted Not Available [facility] 3 03:01:06 Open wound 475089478 Active 2008 Not Available [facility] 3 03:01:06 Ganglion cyst of tendon sheath 44783278 Active Not Available [facility] 3 03:01:06 Chest pain 42768138 Active Not Available [facility] 3 03:01:06 Problem Notes None recorded. Procedures Surgical History Date Name Laterality Status Provider Name and Address Organization Details Recorded Time 06/15/2011 Urologic completed Jonathon Bradley [place] - [facility] 07/28/2011 14:24:27 Imaging Results Imaging Date Name Status LastModified by Organiz ation Details LastModified Time 02/24/2011 x-ray, chest completed [address] [place], [place], [address], 01/07/2013 03:09:40 Procedure Notes None recorded. Medical [...] Details Last Updated DateTime 10/31/2009 162.56 cm 59597.81 134 g 31.2 kg/m2 114 mm[Hg] 62 mm[Hg] Mariely ware M.A. [facility] 0 14:17:59 Social History Question Answer [...] virus, trivalent, preservative 1 completed Not Available [facility] 07/02/2019 02:35:17 Novel [id number], nasal 9 completed Not Available [facility] 07/02/2019 02:34:48 varicella 11/04/200 8 completed Not Available [facility] 04/19/2011 03:16:44 influenza, unspecified formulation 8 completed Not Available [facility] 04/19/2011 03:19:09 Influenza, split virus, trivalent, preservative 0 completed Not Available [facility] 07/02/2019 02:34:45 Tdap 0 completed Not Available [facility] 07/02/2019 02:33:40 meningococcal ACWY, unspecified formulation 6 completed Not Available [facility] 04/19/2011 03:17:38 varicella 6 completed Not Available [facility] 04/19/2011 03:17:38 Td(adult) unspecified formulation 4 completed Not Available [facility] 04/19/2011 03:19:09 Influenza, split virus, trivalent, preservative 0 completed Not Available [facility] 07/02/2019 02:35:07 Past Encounters Encounter ID Performer Location Encounter Start Date Encounter Closed Date Diagnosis/Indication Diagnosis SNOMED-CT Code Diagnosis ICD10 Code Diagnosis Note [id number] Jonathon Bradley MD [facility] [address] [place] [address] 12/30/2006 16:17:00 12/30/2006 16:51:47 [id number] Jonathon Bradley MD [facility] [address] [place] [address] 03/03/2007 15:38:38 03/03/2007 16:25:03 [id number] Jonathon Bradley MD [facility] [address] [place] [address] 04/18/2008 11:05:40 04/18/2008 11:51:40 [id number] Jonathon Bradley MD [facility] [address] [place] [address] 06/12/2008 14:43:53 06/12/2008 15:00:56 [id number] Sourav Benson MD [facility] [address] [place] [address] 07/07/2008 13:56:01 07/07/2008 14:19:32 [id number] Mary Quiroga MD [facility] [address] [place] [address] 08/13/2008 11:22:10 08/13/2008 12:03:42 [id number] Ayala Fletcher MD [facility] [address] [place] [address] 08/15/2008 16:52:40 02/22/2009 01:23:50 [id number] Sourav Benson MD [facility] [address] [facility]note [facility] [place] [address] 10/10/2009 15:30:20 10/10/2009 16:29:57 [id number] Jonathon Bradley MD [facility] [address] [place] [address] 10/31/2009 14:12:30 10/31/2009 16:01:33 [id number] Mya Swift MD [facility] [address] [place] [address] 02/24/2011 16:59:51 02/24/2011 17:43:05 Health Concerns [...] PAY* Li sa Lana 10/10/2009 1 [employer] [id number] Abi Lana [id number] Abi Lana 10/31/2009 1 [employer] [id number] [place] [id number] Abi Lana 02/24/2011 1 [employer] [id number] Abi Lana [id number] Abi [place] Notes Date Note Type Note Provider Name and Address Organization Details Recorded Time 10/31/2009 text/html ROS neg; LMP 1 month ago, regular, pos cramps (midol); neg VSD Jonathon Bradley [place], [place] - [facility] 10/31/2009 15:46:05 OBGyn Episode No OBEpisode recorded.
--- OUTSIDE RECORDS SUMMARY | 2024-11-02 10:05 | XMS_ITS | Patient Health Record ---
Author Organization [facility] Address [address] [place] [address] Care Team Providers Care Tie Worker Name Role Phone SHERRILL JAMISON Primary Care Provider UnavailCher Jarrett Unavailable [phone] Allergies No Known Allergies Results Component Value Reference Range Notes Urinalysis Reviewed date:03/02/2024 01:03:49 PM Interpretation: Performing Lab: Notes/Report: PH 5.0 PROTEIN Neg GLUCOSE Neg BLOOD Neg [id number] IGP, CtNg Culture 30 Plus Reviewed date:03/08/2024 07:54:10 AM Interpretation: Performing Lab:[facility], [address], [address], [place], Phone - [phone], Director - [facility] Notes/Report: Clinical Information:[id number] LMP / Prev Treat...[id number] Dates / Results....11/28/20 NIL No. of containers..01 ThinPrep Vial DIAGNOSIS: NEGATIVE FOR INTRAEPITHELIAL LESION OR MALIGNANCY. Specimen adequacy: Satisfactory for evaluation. Endocervical and/or squamous metaplastic cells (endocervical component) are present. Clinician provided ICD10: Z01.419 Z72.51 Performed by: Evelyne hodges, Rail Car Painter/Sandblaster (ASCP) . . Note: The Pap smear [...] [address], [address], [place], Phone - [phone], Director - [facility] Notes/Report: Clinical Information:[id number] LMP / Prev Treat...[id number] Dates / Results....11/28/20 NIL No. of containers..01 ThinPrep Vial Test, Urine Reviewed date:05/09/2024 12:04:52 PM Interpretation: Performing Lab: Notes/Report: Test, Urine Negative Urinalysis Reviewed date:05/09/2024 12:05:02 PM Interpretation: Performing Lab: Notes/Report: NITRITE Positive PH 5.0 PROTEIN Moderate S.G 1.015 WBC Large GLUCOSE Neg KETONES Moderate UROBILINOGEN Moderate BILIRUBIN Moderate BLOOD Moderate Urinalysis, Complete-[id number] Reviewed date:05/11/2024 12:39:20 PM Interpretation: Performing Lab:[facility], [address] [facility], [place], Phone - [phone], Director - [facility] Notes/Report: Specific Palms 1.020 1.005-1.030 pH 6.0 5.0-7.5 Urine-Color Yellow [...] /lpf Bacteria Many None seen/Few hCG,Beta Subunit, Qnt-[id number] Reviewed date:05/10/2024 08:10:04 AM Interpretation: Performing Lab:[facility], [address] [place] [address], Phone - [phone], Director - Alexander Notes/Report: hCG,Beta Subunit,Qnt,Serum <1 [...] delivery and growth restriction. CBC With Differential/Platel et-[id number] Reviewed date:05/10/2024 08:03:15 AM Interpretation: Performing Lab:[facility], [address] [place] [address], Phone - [phone], Director - Amos Notes/Report: WBC 9.2 3.4-10.8 x10E3/uL Effective May 16, 2024 profile [id number] WBC will be made non-orderable as a [...] Grans (Abs) 0.1 0.0-0.1 x10E3/uL Urine Culture, Routine-[id number] Reviewed date:05/11/2024 12:38:46 PM Interpretation: Performing Lab:Sheldon Ts[facility], Phone - [phone], Director - Amos Notes/Report: Urine Culture, Routine [...] Tobramycin S Trimethoprim/Sulfa R PDF Report Reviewed date:05/11/2024 12:33:09 PM Interpretation: Performing Lab:[facility]ldon Ts[facility] [place], Phone - [phone], Director - Amos Notes/Report: Urinalysis, Complete-[id number] Reviewed date:06/02/2024 08:03:26 AM Interpretation: Performing Lab:[facility]ldon Ts[facility] [place], Phone - [phone], Director Baljit Trinidad Notes/Report: Clinical Information:LEONARDO UTI SRC:UC Clinical Information:LEONARDO UTI SRC:UC Specific Palms 1.020 1.005-1.030 pH 6.5 5.0-7.5 Urine-Color Yellow [...] N/A Bacteria Many None seen/Few Urine Culture, Routine-40335 7 Reviewed date:06/02/2024 02:20:45 PM Interpretation: Performing Lab:[facility], [address] [place] [address], Phone - [phone], Director - Amos Notes/Report: Clinical Information:LEONARDO UTI SRC:UC Clinical Information:LEONARDO UTI SRC:UC Urine Culture, Routine Final report Result 1 Mixed urogenital karyna 50,000-100,000 colony forming units per mL PDF Report Reviewed date:06/02/2024 08:01:52 AM Interpretation: Performing Lab:[facility], [address] [place] [address], Phone - [phone], Director - Amos Notes/Report: Clinical Information:LEONARDO UTI SRC:UC PDF Report Reviewed date:05/10/2024 08:02:50 AM Interpretation: Performing Lab:[facility] [address] [place] [address], Phone - [phone], Director - Amos Notes/Report: PDF Report Reviewed date:05/10/2024 08:02:58 AM Interpretation: Performing Lab:[facility], [address] [place] [address], Phone - [phone], Director - [facility] Notes/Report: Reason For Referral No Information Medications [...] Status Risk Notes Problem Contraception care education (317342779) Encounter for other general counseling and advice on contraception (Z30.09) Active confirmed Problem Morbid obesity (disorder) (962250439) Morbid (severe) obesity due to excess calories (E66.01) Active confirmed Problem Amenorrhea (15509766) Amenorrhea, unspecified (N91.2) Active confirmed Problem Irregular Menstruation (35697542) Other specified irregular menstruation (N92.5) Active confirmed Problem Abnormal vaginal bleeding (286984461) Other specified abnormal uterine and vaginal bleeding (N93.8) Active confirmed Problem Calculus of kidney (40849981) Calculus of kidney (592.0) Active confirmed Major Problem Gynecological examination normal (885776881607658) Routine gynecological examination (V72.31) Active confirmed Major Vital Signs Temperature 98.1 degrees Fahrenheit 05/09/2024 Blood pressure diastolic 68 mm Hg 05/09/2024 Height 63.5 in 05/09/2024 Blood pressure systolic 108 mm Hg 05/09/2024 Weight 132 lbs 05/09/2024 BMI 23.01 kg/m2 05/09/2024 Encounters Encounter Location Date Provider Diagnosis [place] [address] [place] [phone] 03/02/2024 Cher Anderson Encounter for gynecological examination (general) (routine) without abnormal findings Z01.419 ; High risk heterosexual behavior Z72.51 ; Encounter for surveillance of contraceptives, unspecified Z30.40 and Other specified counseling Z71.89 [address] [address] 05/09/2024 Cheremani Anderson Other specified abnormal uterine and vaginal bleeding N93.8 and Urinary tract infection, site not specified N39.[address] [facility] [address] [address] 05/10/2024 Cheremani GonzalezAnderson Total [address] [employer] [address] [address] 03/02/2024 Cher Anderson Total [address] [address] 05/09/2024 Cher Anderson Total [address] [employer] [address] [address] 05/11/2024 Cher Anderson Total [address] [address] 05/30/2024 Cher Anderson Urinary tract infection, site not specified N39.0 [address] [address] 06/02/2024 Cheremani Emanuelva Urgency of urination R39.15 [...] PREP,HPV IF ASCUS, CT/GC (21-29YR) 12/31/2017 Urinalysis, Complete-[id number] 06/02/2024 Urine Culture, Routine-[id number] 06/02/2024 Next Appt Details Provider Name:Cher pascual, 03/06/2025 09:00:00 AM, [address], [place], [address], Insurance Providers Payer Name Payer Address Payer Phone Subscriber Number Group Number Insured Name Patient Relationship to Insured Coverage Start Date Coverage End Date [facility] [address] [facility] [place] [id number] [phone] [id number] EILEEN PILLAI Self - patient is [...]
== END 2024-11-02 09:39 | disposition home or self-care (01) ==
LOC: HO.HBS 08:49
PROVIDERS: PCP Internal Medicine; Visit Provider Physician Assistant Surgical
DX: Z98.890 Other specified postprocedural states (principal)
CPT/HCPCS: 99024

== ENCOUNTER → 2024-11-02 08:48 | Outpatient (BNVA) | payer OTHER, SELFPAY | PROVIDERS: PCP Internal Medicine; Visit Provider Physician Assistant Surgical ==

== ENCOUNTER 2024-11-10 09:01 | Outpatient (AMB) | payer OTHER, SELFPAY ==
--- NOTE | 2024-11-10 09:12 | MHC.OFFVISWM ---
VS Expanded 11/10/24 09:16 BP 105/52 L Blood Pressure Location Rt brachial Blood Pressure Position Sitting Pulse 67 Pulse Source Pulse Oximeter Temp 35.9 F L Temperature Source Temporal Artery Scan Pulse Oximetry 98 Oxygen Delivery Method Room Air Intake Visit Reasons: OV PO Panniculectomy 10/12/24 Allergies No Known Allergies Allergy (Verified 11/10/24 09:16) HPI Comments Details: 34-year-old female returns to the office today in follow-up. She is approximately 1 month status post panniculectomy performed on 10/12/2024. Drain was removed at her last visit. She had continued antibiotics as instructed. She continues to follow the meal plan as directed. Has no complaints at today's visit. [facility] Medical History (Updated 10/15/24 @ 00:01 by Lili Amato) Asthma Depression Anxiety Postgastrectomy malabsorption PTSD (post-traumatic stress disorder) History of kidney stones Surgical History S/P panniculectomy S/P laparoscopic sleeve gastrectomy History of lithotripsy Family History Sister Substance use disorder Mental health disorder Brother Substance use disorder Mental health disorder Mother Substance use disorder Mental health disorder Father Substance use disorder Mental health disorder Other Patient unsure of family history Social History Household Members: Significant Other Housing: Apartment Are you a primary caregivers homecare to a significant other at home: No Do you presently have visiting nurse or other home services: No Patient Tobacco Use Status: Never used Tobacco e-Cigarette/Vaping Use: Currently Using Substance Use Type: Marijuana service: No Current occupational status: employed Cognitive needs: No Hearing needs: No Vision needs: Yes Physical Exam Vital Signs: Last Vital Signs Temp 35.9 F L 11/10/24 09:16 Pulse 67 11/10/24 09:16 BP 105/52 L 11/10/24 09:16 Pulse Ox 98 11/10/24 09:16 Oxygen Delivery Method Room Air 11/10/24 09:16 Skin Other: All incisions are healing very nicely. Umbilicus is viable. Assessment & Plan Assessment & Plan (1) S/P panniculectomy: Code(s): Z98.890 - Other specified postprocedural states Category: Surgical Plan: Patient is doing very well. Incisions healing very nicely. She will continue her current meal plan. Continue abdominal binder. We will have her return to the office in a proximally 2 weeks.
[2024-11-10 09:16] VITALS: BP 105/52; PULSE 67; TEMP 2.2; TEMP 35.9; O2SAT 98
--- OUTSIDE RECORDS SUMMARY | 2024-11-10 09:23 | XMS_ITS | Patient Health Record ---
Author Organization [facility] Address [address] [place] [address] Care Team Providers Care Casing Cooker Name Role Phone SHERRILL JAMISON Primary Care Provider UnavailCher Jarrett Unavailable [phone] Allergies No Known Allergies Results Component Value Reference Range Notes PDF Report Reviewed date:05/10/2024 08:02:58 AM Interpretation: Performing Lab:[facility], [address] [place] [address], Phone - [phone], Director - Alexander Notes/Report: PDF Report Reviewed date:05/10/2024 08:02:50 AM Interpretation: Performing Lab:[facility], [address] [facility], [place], Phone - [phone], Director - Amos Notes/Report: Urinalysis Reviewed date:03/02/2024 01:03:49 PM Interpretation: Performing Lab: Notes/Report: PH 5.0 PROTEIN Neg GLUCOSE Neg BLOOD Neg [id number]-Kpy IGP, CtNg Culture 30 Plus Reviewed date:03/08/2024 07:54:10 AM Interpretation: Performing Lab:[facility] [place], [address], [address], [place], Phone - [phone], Director - Alexander Notes/Report: Clinical Information:[id number] LMP / Prev Treat...[id number] Dates / Results....11/28/20 NIL No. of containers..01 ThinPrep Vial DIAGNOSIS: NEGATIVE FOR INTRAEPITHELIAL LESION OR MALIGNANCY. Specimen adequacy: Satisfactory for evaluation. Endocervical and/or squamous metaplastic cells (endocervical component) are present. Clinician provided ICD10: Z01.419 Z72.51 Performed by: Evelyne hodges, Cast Iron Drain Pipe Layer (ASCP) . . Note: The Pap smear [...] date:03/08/2024 07:53:52 AM Interpretation: Performing Lab:[facility] Mcneal, [facility] [address], [address] [place] [address], Phone - [phone], Director - [facility] Notes/Report: Clinical Information:[id number] LMP / Prev Treat...[id number] Dates / Results....11/28/20 NIL No. of containers..01 ThinPrep Vial Test, Urine Reviewed date:05/09/2024 12:04:52 PM Interpretation: Performing Lab: Notes/Report: Test, Urine Negative Urinalysis Reviewed date:05/09/2024 12:05:02 PM Interpretation: Performing Lab: Notes/Report: NITRITE Positive PH 5.0 PROTEIN Moderate S.G 1.015 WBC Large GLUCOSE Neg KETONES Moderate UROBILINOGEN Moderate BILIRUBIN Moderate BLOOD Moderate Urinalysis, Complete-[id number] Reviewed date:05/11/2024 12:39:20 PM Interpretation: Performing Lab:[facility], [address] [facility], Phone - [phone], Director - [facility] Notes/Report: Specific [place] 1.020 1.005-1.030 pH 6.0 5.0-7.5 Urine-Color Yellow [...] /lpf Bacteria Many None seen/Few hCG,Beta Subunit, Qnt-[id number] Reviewed date:05/10/2024 08:10:04 AM Interpretation: Performing Lab:[facility], [address] [place] [address], Phone - [phone], Director - Alexander Notes/Report: hCG,Beta Subunit,Qnt,Serum <1 [...] delivery and growth restriction. CBC With Differential/Platel et-[id number] Reviewed date:05/10/2024 08:03:15 AM Interpretation: Performing Lab:[facility] [place], [address], [place], Phone - [phone], Director - Amos Notes/Report: WBC 9.2 3.4-10.8 x10E3/uL Effective May 16, 2024 profile 156114 WBC will be made non-orderable as a [...] Grans (Abs) 0.1 0.0-0.1 x10E3/uL Urine Culture, Routine-[id number] 7 Reviewed date:05/11/2024 12:38:46 PM Interpretation: Performing Lab:[facility], [address] [place] [address], [place], Phone - [phone], Director - Amos Notes/Report: Urine Culture, Routine [...] Report Reviewed date:05/11/2024 12:33:09 PM Interpretation: Performing Lab:[facility] [place], [facility], Phone - [phone], Director - Amos Notes/Report: Urinalysis, Complete-[id number] Reviewed date:06/02/2024 08:03:26 AM Interpretation: Performing Lab:[facility] [place], [facility], Phone - [phone], Director - [facility] Notes/Report: Clinical Information:LEONARDO UTI SRC:UC Clinical Information:LEONARDO UTI SRC:UC Specific Deland 1.020 1.005-1.030 pH 6.5 5.0-7.5 Urine-Color Yellow [...] N/A Bacteria Many None seen/Few Urine Culture, Routine-05115 7 Reviewed date:06/02/2024 02:20:45 PM Interpretation: Performing Lab:[facility] [place], [address] [place] [address], Phone - [phone], Director - Amos Notes/Report: Clinical Information:LEONARDO UTI SRC:UC Clinical Information:LEONARDO UTI SRC:UC Urine Culture, Routine Final report Result 1 Mixed urogenital karyna 50,000-100,000 colony forming units per mL PDF Report Reviewed date:06/02/2024 08:01:52 AM Interpretation: Performing Lab:[facility] [place], [facility], Phone - [phone], Director - Amos Notes/Report: Clinical Information:LEONARDO UTI [...] Status Risk Notes Problem Contraception care education (182915976) Encounter for other general counseling and advice on contraception (Z30.09) Active confirmed Problem Morbid obesity (disorder) (954710237) Morbid (severe) obesity due to excess calories (E66.01) Active confirmed Problem Amenorrhea (33567568) Amenorrhea, unspecified (N91.2) Active confirmed Problem Irregular Menstruation (72808926) Other specified irregular menstruation (N92.5) Active confirmed Problem Abnormal vaginal bleeding (769172460) Other specified abnormal uterine and vaginal bleeding (N93.8) Active confirmed Problem Calculus of kidney (96236177) Calculus of kidney (592.0) Active confirmed Major Problem Gynecological examination normal (571275330619688) Routine gynecological examination (V72.31) Active confirmed Major Vital Signs Temperature 98.1 degrees Fahrenheit 05/09/2024 Blood pressure diastolic 68 mm Hg 05/09/2024 Height 63.5 in 05/09/2024 Blood pressure systolic 108 mm Hg 05/09/2024 Weight 132 lbs 05/09/2024 BMI 23.01 kg/m2 05/09/2024 Encounters Encounter Location Date Provider Diagnosis [place] [address] [place] [address] 03/02/2024 Cher Anderson Encounter for gynecological examination (general) (routine) without abnormal findings Z01.419 ; High risk heterosexual behavior Z72.51 ; Encounter for surveillance of contraceptives, unspecified Z30.40 and Other specified counseling Z71.89 [address] [address] 05/09/2024 Cheremani Anderson Other specified abnormal uterine and vaginal bleeding N93.8 and Urinary tract infection, site not specified N39.[address] [employer] [address] [address] 05/10/2024 Cheremani GonzalezAnderson Total [address] [employer] [address] [address] 03/02/2024 Cher Anderson Total [address] [address] 05/09/2024 Cher Anderson Total [address] [employer] [address] [address] 05/11/2024 Cher Anderson Total [address] [address] 05/30/2024 Cher Anderson Urinary tract infection, site not specified N39.0 [address] [address] 06/02/2024 Cheremani Emanuelva Urgency of urination R39.15 [...] PREP,HPV IF ASCUS, CT/GC (21-29YR) 12/31/2017 Urinalysis, Complete-[id number] 06/02/2024 Urine Culture, Routine-[id number] 06/02/2024 Next Appt Details Provider Name:Cher pascual, 03/06/2025 09:00:00 AM, [address], [address], [place], [address], Insurance Providers Payer Name Payer Address Payer Phone Subscriber Number Group Number Insured Name Patient Relationship to Insured Coverage Start Date Coverage End Date [facility] [address] [facility] [place] [id number] EILEEN PILLAI Self - patient is [...]
== END 2024-11-10 09:26 | disposition home or self-care (01) ==
LOC: HO.HBS 09:02
PROVIDERS: PCP Internal Medicine; Visit Provider Physician Assistant Surgical
DX: Z98.890 Other specified postprocedural states (principal)
CPT/HCPCS: 99024

== ENCOUNTER 2024-11-24 09:31 | Outpatient (AMB) | payer OTHER, SELFPAY ==
--- NOTE | 2024-11-24 09:33 | A.OFFVIS_ITS ---
VS Expanded 11/24/24 09:41 BP 118/76 Blood Pressure Location Rt brachial Blood Pressure Position Sitting Pulse 79 Pulse Source Pulse Oximeter Temp 95.8 F L Temperature Source Temporal Artery Scan Pulse Oximetry 100 Oxygen Delivery Method Room Air Height 5 ft 3 in Weight 127 lb 3.2 oz BMI 22.5 Body Fat % 28.6 Body Fat Mass 36.4 Fat Free Mass 90.6 Visceral Fat Rating 3.0 Body Water % 51.2 Body Water Mass 65.0 Muscle Mass/Score 86.0 Basal Metabolic Rate/Score 1,256 Intake Visit Reasons: OV PO Panniculectomy 10/12/24 Allergies No Known Allergies Allergy (Verified 11/24/24 09:42) HPI Comments Details: Patient is a pleasant 34-year-old female who returns to the office today in follow-up. She is status post panniculectomy performed on 10/12/2024. Weight today is 127.2 lb with a BMI of 22.5. She is doing very well and has no significant complaints. She continues to follow her meal plan: Orgain 1 scoop Fit crunch bar Meal with 6 forks of protein and 6 forks of vegetables [facility] Medical History (Updated 10/15/24 @ 00:01 by Lili Amato) Asthma Depression Anxiety Postgastrectomy malabsorption PTSD (post-traumatic stress disorder) History of kidney stones Surgical History S/P panniculectomy S/P laparoscopic sleeve gastrectomy History of lithotripsy Family History Sister Substance use disorder Mental health disorder Brother Substance use disorder Mental health disorder Mother Substance use disorder Mental health disorder Father Substance use disorder Mental health disorder Other Patient unsure of family history Social History Household Members: Significant Other Housing: Apartment Are you a primary resident care provider to a significant other at home: No Do you presently have visiting nurse or other home services: No Patient Tobacco Use Status: Never used Tobacco e-Cigarette/Vaping Use: Currently Using Substance Use Type: Marijuana service: No Current occupational status: employed Cognitive needs: No Hearing needs: No Vision needs: Yes Physical Exam Skin Other: Transverse and umbilical incisions healing very nicely. No evidence of dehiscence or infection Assessment & Plan Assessment & Plan (1) S/P panniculectomy: Code(s): Z98.890 - Other specified postprocedural states Category: Surgical Plan: Patient is doing very well status post panniculectomy performed on 10/12/2024. She may begin to walk around outside. She was told by Dr. Nicholson that she no longer needs to wear her abdominal binder. Return to clinic 2 weeks
[2024-11-24 09:41] VITALS: BP 118/76; PULSE 79; TEMP 35.4; O2SAT 100; BMI 22.5
--- OUTSIDE RECORDS SUMMARY | 2024-11-24 10:26 | XMS_ITS | Patient Health Record ---
Author Organization [facility] Address [address] [place] [address] Care Team Providers Care Enrober Name Role Phone SHAHEEN ROSHNIHafsa Primary Care Provider UnavailCher Jarrett Unavailable [phone] Allergies No Known Allergies Results Component Value Reference Range Notes PDF Report Reviewed date:06/02/2024 08:01:52 AM Interpretation: Performing Lab:[facility] [place], [employer] [place], Phone - [phone], Director - Amos Notes/Report: Clinical Information:LEONARDO UTI SRC:UC Urine Culture, Routine-[id number] Reviewed date:06/02/2024 02:20:45 PM Interpretation: Performing Lab:[facility], [employer], Phone - [phone], Director - Amos Notes/Report: Clinical Information:LEONARDO UTI SRC:UC Clinical Information:LEONARDO UTI SRC:UC Urine Culture, Routine Final report Result 1 Mixed urogenital karyna 50,000-100,000 colony forming units per mL Urinalysis, Complete-[id number] Reviewed date:06/02/2024 08:03:26 AM Interpretation: Performing Lab:[employer], [employer] Count Includes [facility], Phone - [phone], Director - Amos Notes/Report: Clinical Information:LEONARDO UTI SRC:UC Clinical Information:LEONARDO UTI SRC:UC Specific [place] 1.020 1.005-1.030 pH 6.5 5.0-7.5 Urine-Color Yellow [...] Calcium Oxalate N/A Bacteria Many None seen/Few PDF Report Reviewed date:05/11/2024 12:33:09 PM Interpretation: Performing Lab:[facility] [place], [address] [place] [address], Phone - [phone], Director - Amos Notes/Report: Urine Culture, Routine-[id number] Reviewed date:05/11/2024 12:38:46 PM Interpretation: Performing Lab:[facility] [place], [address] [place] [address], Phone - [phone], Director - Amos Notes/Report: Urine Culture, Routine [...] Tobramycin S Trimethoprim/Sulfa R CBC With Differential/Platel et-[id number] Reviewed date:05/10/2024 08:03:15 AM Interpretation: Performing Lab:[facility] [place], [address] [place] [address], [place], Phone - [phone], Director - Amos Notes/Report: WBC 9.2 3.4-10.8 x10E3/uL Effective May 16, 2024 profile [id number] WBC will be made non-orderable as a [...] Grans (Abs) 0.1 0.0-0.1 x10E3/uL hCG,Beta Subunit, Qnt-[id number] Reviewed date:05/10/2024 08:10:04 AM Interpretation: Performing Lab:[facility], [address] [place] [address], Phone - [phone], Director - [facility] Notes/Report: hCG,Beta Subunit,Qnt,Serum <1 <5 MIU/ML [...] loss, preeclampsia, delivery and growth restriction. Urinalysis, Complete-[id number] Reviewed date:05/11/2024 12:39:20 PM Interpretation: Performing Lab:Colette Boswell, [address] [facility], Phone - [phone], Director - Amos Notes/Report: Specific [place] 1.020 1.005-1.030 pH 6.0 5.0-7.5 Urine-Color Yellow [...] Notes/Report: Test, Urine Negative PDF Report Reviewed date:05/10/2024 08:02:58 AM Interpretation: Performing Lab:[facility], [address] [place] [address], Phone - [phone], Director - Alexander Notes/Report: PDF Report Reviewed date:05/10/2024 08:02:50 AM Interpretation: Performing Lab:[facility], [address] [place] [address], Phone - [phone], Director - Amos Notes/Report: Urinalysis Reviewed date:03/02/2024 01:03:49 PM Interpretation: Performing Lab: Notes/Report: PH 5.0 PROTEIN Neg GLUCOSE Neg BLOOD Neg [id number]-Ebj IGP, CtNg Culture 30 Plus Reviewed date:03/08/2024 07:54:10 AM Interpretation: Performing Lab:[facility] McnealÁlvaro, [address], [place], Phone - [phone], Director - [facility] Notes/Report: Clinical Information:[id number] LMP / Prev Treat...JWL=[id number] Dates / Results....11/28/20 NIL No. of containers..01 ThinPrep Vial DIAGNOSIS: NEGATIVE FOR INTRAEPITHELIAL LESION OR MALIGNANCY. Specimen adequacy: Satisfactory for evaluation. Endocervical and/or squamous metaplastic cells (endocervical component) are present. Clinician provided ICD10: Z01.419 Z72.51 Performed by: Evelyne hodges, Dental Claims Processor (ASCP) . . Note: The Pap smear [...] Reviewed date:03/08/2024 07:53:52 AM Interpretation: Performing Lab:Colette McnealÁlvaro, [address], [place], Phone - [phone], Director - [facility] Notes/Report: Clinical Information:[id number] LMP / Prev Treat...[id number]=[id number] Dates / Results....11/28/20 NIL No. of containers..01 ThinPrep Vial Reason For Referral No Information Medications Medication [...] Status Risk Notes Problem Contraception care education (990468180) Encounter for other general counseling and advice on contraception (Z30.09) Active confirmed Problem Morbid obesity (disorder) (650831412) Morbid (severe) obesity due to excess calories (E66.01) Active confirmed Problem Amenorrhea (77927908) Amenorrhea, unspecified (N91.2) Active confirmed Problem Irregular Menstruation (08423076) Other specified irregular menstruation (N92.5) Active confirmed Problem Abnormal vaginal bleeding (486477038) Other specified abnormal uterine and vaginal bleeding (N93.8) Active confirmed Problem Calculus of kidney (99263638) Calculus of kidney (592.0) Active confirmed Major Problem Gynecological examination normal (310758082246261) Routine gynecological examination (V72.31) Active confirmed Major Vital Signs Temperature 98.1 degrees Fahrenheit 05/09/2024 Blood pressure diastolic 68 mm Hg 05/09/2024 Height 63.5 in 05/09/2024 Blood pressure systolic 108 mm Hg 05/09/2024 Weight 132 lbs 05/09/2024 BMI 23.01 kg/m2 05/09/2024 Encounters Encounter Location Date Provider Diagnosis [place] [address] [address] [place] [address] 03/02/2024 Cher Anderson Encounter for gynecological examination (general) (routine) without abnormal findings Z01.419 ; High risk heterosexual behavior Z72.51 ; Encounter for surveillance of contraceptives, unspecified Z30.40 and Other specified counseling Z71.89 [address] [address] 05/09/2024 Cheremani Anderson Other specified abnormal uterine and vaginal bleeding N93.8 and Urinary tract infection, site not specified N39.[address] [facility] [address] [address] 05/10/2024 Cheremani GonzalezAnderson Total [address] [facility] [address] [address] 03/02/2024 Cher Anderson Total [address] [address] 05/09/2024 Cher Anderson Total [address] [place] [address] [address] 05/11/2024 Cher Anderson Total [address] [address] 05/30/2024 Cher Anderson Urinary tract infection, site not specified N39.0 [address] [address] 06/02/2024 Cheremani Emanuelva Urgency of urination R39.15 [...] PREP,HPV IF ASCUS, CT/GC (21-29YR) 12/31/2017 Urinalysis, Complete-[id number] 06/02/2024 Urine Culture, Routine-[id number] 06/02/2024 Next Appt Details Provider Name:Cher pascual, 03/06/2025 09:00:00 AM, [address], [address], [place], [address], Insurance Providers Payer Name Payer Address Payer Phone Subscriber Number Group Number Insured Name Patient Relationship to Insured Coverage Start Date Coverage End Date [facility] [address] [facility] [place] [id number] EILEEN PILLAI Self - patient is [...]
== END 2024-11-24 09:58 | disposition home or self-care (01) ==
LOC: HO.HBS 09:31
PROVIDERS: PCP Internal Medicine; Visit Provider Physician Assistant Surgical
DX: Z98.890 Other specified postprocedural states (principal)
CPT/HCPCS: 99024

== ENCOUNTER → 2024-11-24 09:31 | Outpatient (BNVA) | payer OTHER, SELFPAY | PROVIDERS: PCP Internal Medicine; Visit Provider Physician Assistant Surgical ==

== ENCOUNTER 2024-12-07 10:01 | Outpatient (AMB) | payer OTHER, SELFPAY ==
--- NOTE | 2024-12-07 10:15 | MHC.OFFVISWM ---
VS Expanded 12/07/24 10:21 BP 115/75 Blood Pressure Location Rt brachial Blood Pressure Position Sitting Pulse 81 Pulse Source Pulse Oximeter Temp 96.1 F L Temperature Source Temporal Artery Scan Pulse Oximetry 99 Oxygen Delivery Method Room Air Height 5 ft 3 in Weight 129 lb 3.2 oz BMI 22.9 Body Fat % 26.6 Body Fat Mass 34.4 Fat Free Mass 94.8 Visceral Fat Rating 3.0 Body Water % 52.7 Body Water Mass 68.2 Muscle Mass/Score 90.0 Basal Metabolic Rate/Score 1,300 Intake Visit Reasons: OV PO Panniculectomy 10/12/24 Allergies No Known Allergies Allergy (Verified 11/24/24 09:42) HPI Comments Details: Patient is a pleasant 34-year-old female who returns to the office today in follow-up. She is status post panniculectomy on 10/12/2024. She had her 1st menstrual period since her surgery and developed significant lower abdominal bloating. This has caused some discomfort. She is moving her bowels without difficulty. Tolerating her meal plan without difficulty Meal plan: Orgain 1 scoop in 8 oz of almond milk Fit crunch bar Meal with 3 forks protein and 3 forks vegetables Another meal Weight today is 129.2 lb with a BMI of 22.9. [facility] Medical History (Updated 10/15/24 @ 00:01 by Lili Amato) Asthma Depression Anxiety Postgastrectomy malabsorption PTSD (post-traumatic stress disorder) History of kidney stones Surgical History S/P panniculectomy S/P laparoscopic sleeve gastrectomy History of lithotripsy Family History Sister Substance use disorder Mental health disorder Brother Substance use disorder Mental health disorder Mother Substance use disorder Mental health disorder Father Substance use disorder Mental health disorder Other Patient unsure of family history Social History Household Members: Significant Other Housing: Apartment Are you a primary health care coach to a significant other at home: No Do you presently have visiting nurse or other home services: No Patient Tobacco Use Status: Never used Tobacco e-Cigarette/Vaping Use: Currently Using Substance Use Type: Marijuana service: No Current occupational status: employed Cognitive needs: No Hearing needs: No Vision needs: Yes Physical Exam GI Other: Suprapubic fullness Skin Other: Transverse and umbilical incisions healing very nicely. Assessment & Plan Assessment & Plan (1) S/P panniculectomy: Code(s): Z98.890 - Other specified postprocedural states Category: Medical Plan: Healing very nicely. Patient will contact her digital pre press operator regarding abnormal menstrual cycle and abdominal bloating. Instructed to avoid exercise over the next couple of days. She had been doing a significant amount of walking while on vacation up in [place] although the abdominal bloating started right after her menstrual period started. This was yesterday. She had returned from vacation on Thursday.
[2024-12-07 10:21] VITALS: BP 115/75; PULSE 81; TEMP 35.6; O2SAT 99; BMI 22.9
--- OUTSIDE RECORDS SUMMARY | 2024-12-07 11:30 | XMS_ITS | Patient Health Record ---
Author Organization [facility] Address [address] [facility] [address] [place] [address] Care Team Providers Care Operating Room Technologist Name Role Phone SHERRILL JAMISON Primary Care Provider UnavailCher Jarrett Unavailable [phone] Allergies No Known Allergies Results Component Value Reference Range Notes Urinalysis Reviewed date:03/02/2024 01:03:49 PM Interpretation: Performing Lab: Notes/Report: PH 5.0 PROTEIN Neg GLUCOSE Neg BLOOD Neg [id number]-Atr IGP, CtNg Culture 30 Plus Reviewed date:03/08/2024 07:54:10 AM Interpretation: Performing Lab:[facility] Mcneal, Álvaro Carole Jiménez, [address], [place], Phone - [phone], Director - [facility] Notes/Report: Clinical Information:[id number] LMP / Prev Treat...QSF=[id number] Dates / Results....11/28/20 NIL No. of containers..01 ThinPrep Vial DIAGNOSIS: NEGATIVE FOR INTRAEPITHELIAL LESION OR MALIGNANCY. Specimen adequacy: Satisfactory for evaluation. Endocervical and/or squamous metaplastic cells (endocervical component) are present. Clinician provided ICD10: Z01.419 Z72.51 Performed by: Evelyne hodges, Tie Puller (ASCP) . . Note: The Pap smear [...] Álvaro Jiménez, [address], [place], Phone - [phone], Director - [facility] Notes/Report: Clinical Information:[id number] LMP / Prev Treat...HNC=[id number] Dates / Results....11/28/20 NIL No. of containers..01 ThinPrep Vial Test, Urine Reviewed date:05/09/2024 12:04:52 PM Interpretation: Performing Lab: Notes/Report: Test, Urine Negative Urinalysis Reviewed date:05/09/2024 12:05:02 PM Interpretation: Performing Lab: Notes/Report: NITRITE Positive PH 5.0 PROTEIN Moderate S.G 1.015 WBC Large GLUCOSE Neg KETONES Moderate UROBILINOGEN Moderate BILIRUBIN Moderate BLOOD Moderate Urinalysis, Complete-[id number] Reviewed date:05/11/2024 12:39:20 PM Interpretation: Performing Lab:[facility], [address] [facility], [place], Phone - [phone], Director - Amos Notes/Report: Specific [place] 1.020 1.005-1.030 pH 6.0 5.0-7.5 Urine-Color Yellow [...] /lpf Bacteria Many None seen/Few hCG,Beta Subunit, Qnt-[id number] Reviewed date:05/10/2024 08:10:04 AM Interpretation: Performing Lab:[facility], [address] [place] [address], Phone - [phone], Director - Alexander Notes/Report: hCG,Beta Subunit,Qnt,Serum <1 [...] delivery and growth restriction. CBC With Differential/Platel et-[id number] Reviewed date:05/10/2024 08:03:15 AM Interpretation: Performing Lab:Colette Boswell, [address] [place] [address], Phone - [phone], Director - Amos Notes/Report: WBC 9.2 3.4-10.8 x10E3/uL Effective May 16, 2024 profile 762315 WBC will be made non-orderable as a [...] Grans (Abs) 0.1 0.0-0.1 x10E3/uL Urine Culture, Routine-[id number] Reviewed date:05/11/2024 12:38:46 PM Interpretation: Performing Lab:Colette Boswell, [address] [facility], Phone - [phone], Director - Amos Notes/Report: Urine Culture, Routine [...] Report Reviewed date:05/10/2024 08:02:58 AM Interpretation: Performing Lab:[facility], [address] [place] [address], Phone - [phone], Director - Alexander Notes/Report: PDF Report Reviewed date:05/10/2024 08:02:50 AM Interpretation: Performing Lab:[facility], [address] [facility], [place], Phone - [phone], - Amos Notes/Report: Urinalysis, Complete-[id number] Reviewed date:06/02/2024 08:03:26 AM Interpretation: Performing Lab:[facility], [address] [place] [address], Phone - [phone], Director - Amos Notes/Report: Clinical Information:LEONARDO UTI SRC:UC Clinical Information:LEONARDO UTI SRC:UC Specific [place] 1.020 1.005-1.030 pH 6.5 5.0-7.5 Urine-Color Yellow [...] N/A Bacteria Many None seen/Few Urine Culture, Routine-[id number] Reviewed date:06/02/2024 02:20:45 PM Interpretation: Performing Lab:[facility], [address] [place] [address], Phone - [phone], Director - Amos Notes/Report: Clinical Information:LEONARDO UTI SRC:UC Clinical Information:LEONARDO UTI SRC:UC Urine Culture, Routine Final report Result 1 Mixed urogenital karyna 50,000-100,000 colony forming units per mL PDF Report Reviewed date:06/02/2024 08:01:52 AM Interpretation: Performing Lab:[facility], [address] [place] [address], Phone - [phone], Director - Amos Notes/Report: Clinical Information:LEONARDO UTI SRC:UC PDF Report Reviewed date:05/11/2024 12:33:09 PM Interpretation: Performing Lab:[facility], [address] [place] [address], Phone - [phone], Director - Amos Notes/Report: Reason For Referral No [...] Status Risk Notes Problem Contraception care education (433536090) Encounter for other general counseling and advice on contraception (Z30.09) Active confirmed Problem Morbid obesity (disorder) (505633523) Morbid (severe) obesity due to excess calories (E66.01) Active confirmed Problem Amenorrhea (78059519) Amenorrhea, unspecified (N91.2) Active confirmed Problem Irregular Menstruation (65605206) Other specified irregular menstruation (N92.5) Active confirmed Problem Abnormal vaginal bleeding (175534987) Other specified abnormal uterine and vaginal bleeding (N93.8) Active confirmed Problem Calculus of kidney (20033803) Calculus of kidney (592.0) Active confirmed Major Problem Gynecological examination normal (168644273370605) Routine gynecological examination (V72.31) Active confirmed Major Vital Signs Temperature 98.1 degrees Fahrenheit 05/09/2024 Blood pressure diastolic 68 mm Hg 05/09/2024 Height 63.5 in 05/09/2024 Blood pressure systolic 108 mm Hg 05/09/2024 Weight 132 lbs 05/09/2024 BMI 23.01 kg/m2 05/09/2024 Encounters Encounter Location Date Provider Diagnosis [place] [address] [employer] [address] [place] [address] 03/02/2024 Cher Anderson Encounter for gynecological examination (general) (routine) without abnormal findings Z01.419 ; High risk heterosexual behavior Z72.51 ; Encounter for surveillance of contraceptives, unspecified Z30.40 and Other specified counseling Z71.89 [facility] [address] [address] 05/09/2024 Cher Anderson Other specified abnormal uterine and vaginal bleeding N93.8 and Urinary tract infection, site not specified N39.[address] [facility] [address] [address] 03/02/2024 Cheremani GonzalezAnderson Total [address] [facility] [address] [address] 05/09/2024 Cher Anderson Total [address] [address] 05/10/2024 Cher Anderson Total [address] [facility] [address] [address] 05/11/2024 Cher Anderson Total [address] [address] 05/30/2024 Cher Anderson Urinary tract infection, site not specified N39.0 [facility] [address] [address] 06/02/2024 Cheremani Emanuelva Urgency of urination R39.15 [...] PREP,HPV IF ASCUS, CT/GC (21-29YR) 12/31/2017 Urinalysis, Complete-[id number] 06/02/2024 Urine Culture, Routine-[id number] 06/02/2024 Next Appt Details Provider Name:Cher pascual, 03/06/2025 09:00:00 AM, [address], [address], [place], [address], Insurance Providers Payer Name Payer Address Payer Phone Subscriber Number Group Number Insured Name Patient Relationship to Insured Coverage Start Date Coverage End Date [facility] [address] [facility] [place] [id number] [phone] [id number] EILENE PILLAI Self - patient is the insured [...]
== END 2024-12-07 10:36 | disposition home or self-care (01) ==
PROVIDERS: PCP Internal Medicine; Visit Provider Physician Assistant Surgical
DX: Z98.890 Other specified postprocedural states (principal)
CPT/HCPCS: 99024

== ENCOUNTER 2025-01-20 10:00 | Outpatient (AMB) | payer OTHER, SELFPAY ==
--- OUTSIDE RECORDS SUMMARY | 2025-01-20 10:04 | XMS_ITS | Patient Health Record ---
Author Organization [facility] Address [address] [place] [address] Care Team Providers Care Performance Test Engineer Name Role Phone SHAHEEN ROSHNIHafsa Primary Care Provider UnavailCher Jarrett Unavailable [phone] Allergies No Known Allergies Results Component Value Reference Range Notes Test, Urine Reviewed date:05/09/2024 12:04:52 PM Interpretation: Performing Lab: Notes/Report: Test, Urine Negative Urinalysis Reviewed date:05/09/2024 12:05:02 PM Interpretation: Performing Lab: Notes/Report: NITRITE Positive PH 5.0 PROTEIN Moderate S.G 1.015 WBC Large GLUCOSE Neg KETONES Moderate UROBILINOGEN Moderate BILIRUBIN Moderate BLOOD Moderate Urinalysis, Complete-[id number] Reviewed date:05/11/2024 12:39:20 PM Interpretation: Performing Lab:[facility] [place], [address] [facility], [place], Phone - [phone], Director - Amos Notes/Report: Specific [place] 1.020 1.005-1.030 pH 6.0 5.0-7.5 Urine-Color Yellow [...] /lpf Bacteria Many None seen/Few hCG,Beta Subunit, Qnt-[id number] Reviewed date:05/10/2024 08:10:04 AM Interpretation: Performing Lab:[facility], [address] [place] [address], Phone - [phone], Director - Alexander Notes/Report: hCG,Beta Subunit,Qnt,Serum <1 [...] delivery and growth restriction. CBC With Differential/Platel et-[id number] Reviewed date:05/10/2024 08:03:15 AM Interpretation: Performing Lab:[facility], [address] [place] [address], Phone - [phone], Director - Amos Notes/Report: WBC 9.2 3.4-10.8 x10E3/uL Effective May 16, 2024 profile 299271 WBC will be made non-orderable as a [...] Grans (Abs) 0.1 0.0-0.1 x10E3/uL Urine Culture, Routine-[id number] 7 Reviewed date:05/11/2024 12:38:46 PM Interpretation: Performing Lab:[facility] [address] [place] [address], Phone - [phone], Director - Amos Notes/Report: Urine Culture, Routine [...] date:05/11/2024 12:33:09 PM Interpretation: Performing Lab:[facility] [place], Phone - [phone], Director - Amos Notes/Report: Urinalysis, Complete-[id number] Reviewed date:06/02/2024 08:03:26 AM Interpretation: Performing Lab:[facility] [place], Phone - [phone], Director - Amos Notes/Report: Clinical Information:LEONARDO UTI SRC:UC Clinical Information:LEONARDO UTI SRC:UC Specific [place] 1.020 1.005-1.030 pH 6.5 5.0-7.5 Urine-Color Yellow [...] N/A Bacteria Many None seen/Few Urine Culture, Routine-87117 7 Reviewed date:06/02/2024 02:20:45 PM Interpretation: Performing Lab:[facility], [address] [place] [address], Phone - [phone], Director - Amos Notes/Report: Clinical Information:LEONARDO UTI SRC:UC Clinical Information:LEONARDO UTI SRC:UC Urine Culture, Routine Final report Result 1 Mixed urogenital karyna 50,000-100,000 colony forming units per mL PDF Report Reviewed date:06/02/2024 08:01:52 AM Interpretation: Performing Lab:[facility], [address] [place] [address], Phone - [phone], Director - Amos Notes/Report: Clinical Information:LEONARDO UTI SRC:UC PDF Report Reviewed date:05/10/2024 08:02:58 AM Interpretation: Performing Lab:[facility], [address] [place] [address], Phone - [phone], Director - Alexander Notes/Report: PDF Report Reviewed date:05/10/2024 08:02:50 AM Interpretation: Performing Lab:[facility], [address] [place] [address], Phone - [phone], - Amos Notes/Report: Urinalysis Reviewed date:03/02/2024 01:03:49 PM Interpretation: Performing Lab: Notes/Report: PH 5.0 PROTEIN Neg GLUCOSE Neg BLOOD Neg 599180-Jsc IGP, CtNg Culture 30 Plus Reviewed date:03/08/2024 07:54:10 AM Interpretation: Performing Lab:[facility], [address], [place], Phone - [phone], Director - [facility] Notes/Report: Clinical Information:[id number] LMP / Prev Treat...[id number] Dates / Results....11/28/20 NIL No. of containers..01 ThinPrep Vial DIAGNOSIS: NEGATIVE FOR INTRAEPITHELIAL LESION OR MALIGNANCY. Specimen adequacy: Satisfactory for evaluation. Endocervical and/or squamous metaplastic cells (endocervical component) are present. Clinician provided ICD10: Z01.419 Z72.51 Performed by: Evelyne hodges, Sluice Tender (ASCP) . . Note: The Pap smear [...] Reviewed date:03/08/2024 07:53:52 AM Interpretation: Performing Lab:[facility] [address], [address], [place], Phone - [phone], Director - [facility] Notes/Report: Clinical Information:[id number] LMP / Prev Treat...[id number] Dates / Results....11/28/20 NIL No. of containers..01 ThinPrep Vial Reason For Referral No Information Medications Medication SIG (Take, Route, Frequency, Duration) Notes Start Date End Date Status Norethindrone Acetate 5 MG 1 tablet Oral ly EVERY 6 HRS D1, Q 6 HRS D2, TWICE DAILY FOR 14 DAYS; Duration: 30 days 05/09/2024 Active Bactrim DS 800-160 MG 1 tablet Orally TW ICE A DAY; Duration: 7 days 05/09/2024 Active Augmentin 500-125 MG 1 tablet Orally Twi ce a day; Duration: 7 days 05/11/2024 Active Multi-Vitamin - 1 tablet Orally Once a day; Duration: 30 day(s) Active miSOPROStol 200 MCG 2 Orally night befor e procedure; Duration: 1 days 05/10/2024 Active Immunizations Vaccine Route [...] Status Risk Notes Problem Contraception care education (464496099) Encounter for other general counseling and advice on contraception (Z30.09) Active confirmed Problem Morbid obesity (disorder) (802027125) Morbid (severe) obesity due to excess calories (E66.01) Active confirmed Problem Amenorrhea (98931282) Amenorrhea, unspecified (N91.2) Active confirmed Problem Irregular Menstruation (74145237) Other specified irregular menstruation (N92.5) Active confirmed Problem Abnormal vaginal bleeding (186567249) Other specified abnormal uterine and vaginal bleeding (N93.8) Active confirmed Problem Calculus of kidney (99863743) Calculus of kidney (592.0) Active confirmed Major Problem Gynecological examination normal (545100103458635) Routine gynecological examination (V72.31) Active confirmed Major Vital Signs Temperature 98.1 degrees Fahrenheit 05/09/2024 Blood pressure diastolic 68 mm Hg 05/09/2024 Height 63.5 in 05/09/2024 Blood pressure systolic 108 mm Hg 05/09/2024 Weight 132 lbs 05/09/2024 BMI 23.01 kg/m2 05/09/2024 Encounters Encounter Location Date Provider Diagnosis [place] [address] [employer] [address] [address] 03/02/2024 Cher Anderson Encounter for gynecological examination (general) (routine) without abnormal findings Z01.419 ; High risk heterosexual behavior Z72.51 ; Encounter for surveillance of contraceptives, unspecified Z30.40 and Other specified counseling Z71.[address] [employer] [address] [address] 05/09/2024 Cher Anderson Other specified abnormal uterine and vaginal bleeding N93.8 and Urinary tract infection, site not specified N39.[address] [employer] [address] [address] 03/02/2024 Cheremani GonzalezAnderson Total [address] [address] 05/09/2024 Cher Anderson Total [address] [address] 05/10/2024 Cher Anderson Total [address] [address] 05/11/2024 Cheremani GonzalezAnderson Total [address] [address] 05/30/2024 Cher Anderson Urinary tract infection, site not specified N39.[address] [address] 06/02/2024 Cher Anderson Urgency of urination R39.15 [...] PREP,HPV IF ASCUS, CT/GC (21-29YR) 12/31/2017 Urinalysis, Complete-[id number] 06/02/2024 Urine Culture, Routine-[id number] 06/02/2024 Next Appt Details Provider Name:Cher pascual, 03/06/2025 09:00:00 AM, [address] [facility] [facility], [address], [place], [address], Insurance Providers Payer Name Payer Address Payer Phone Subscriber Number Group Number Insured Name Patient Relationship to Insured Coverage Start Date Coverage End Date [employer] [address] [facility] [place] [id number] EILEEN PILLAI Self - patient is [...]
--- OUTSIDE RECORDS SUMMARY | 2025-01-20 10:04 | XMS_ITS | Clinical Summary ---
Author Organization [facility] Address [address] [place] [address] Care Team Providers Care Signals Collector/Analyst Name Role Phone Unavailable Primary Care Provider Unavailabl e Immunizations Immunization Administration Dates Next Due Influenza, Quad Single [...] ( - 2023- season) 2024 Influenza Vaccine (#1) 2025 03/31/2022 RSV Vaccine (SCDM) (1 - 1-dose 75+ series) 10/28/2067 [place] [id number] [employer]
--- NOTE | 2025-01-20 10:11 | A.OFFVIS_ITS ---
VS Expanded 01/20/25 10:23 BP 129/78 Blood Pressure Location Rt brachial Blood Pressure Position Sitting Pulse 85 Pulse Source Pulse Oximeter Temp 97.0 F Temperature Source Temporal Artery Scan Pulse Oximetry 99 Oxygen Delivery Method Room Air Height 5 ft 3 in Weight 125 lb 12.8 oz BMI 22.3 Body Fat % 26.3 Body Fat Mass 33.0 Fat Free Mass 92.6 Visceral Fat Rating 2.0 Body Water % 52.8 Body Water Mass 66.4 Muscle Mass/Score 88.0 Basal Metabolic Rate/Score 1,273 Intake Visit Reasons: OV PO Panniculectomy 10/12/24 Spinner [employer] Required: No Allergies No Known Allergies Allergy (Verified 01/20/25 10:25) Medication List - Last Reconciled 01/20/25 by J CARLOS Elkins docusate sodium (Colace) 100 mg PO DAILY ondansetron 4 mg PO Q12H HPI Comments Details: Patient is a pleasant 34-year-old female who returns to the office today in follow-up. She is status post panniculectomy on 10/12/2024 and sleeve gastrectomy on 11/2022. Weight today is 125.8 pounds, with a BMI of 22.3.? There has been a 112.2 pound weight loss,(initial weight 238 pounds) since starting the program on 10/20/22 reflecting a 47.1% total body weight loss and a weight loss of 90.9 pounds since surgery (operative weight 216.7 pounds) reflecting a 41.9% TBWL since surgery. Meal plan: Fit crunch bar x2 and half a chicken breast at night. [facility] Medical History (Updated 10/15/24 @ 00:01 by Lili Amato) Asthma Depression Anxiety Postgastrectomy malabsorption PTSD (post-traumatic stress disorder) History of kidney stones Surgical History S/P panniculectomy S/P laparoscopic sleeve gastrectomy History of lithotripsy Family History Sister Substance use disorder Mental health disorder Brother Substance use disorder Mental health disorder Mother Substance use disorder Mental health disorder Father Substance use disorder Mental health disorder Other Patient unsure of family history Social History (Reviewed 01/20/25 @ 10:25 by FROILAN Barrios Household Members: Significant Other Housing: Apartment Are you a primary acute care clinical nurse specialist to a significant other at home: No Do you presently have visiting nurse or other home services: No Patient Tobacco Use Status: Never used Tobacco e-Cigarette/Vaping Use: Currently Using Substance Use Type: Marijuana service: No Current occupational status: employed Cognitive needs: No Hearing needs: No Vision needs: Yes Physical Exam Vital Signs: Last Vital Signs Temp 97.0 F 01/20/25 10:23 Pulse 85 01/20/25 10:23 BP 129/78 01/20/25 10:23 Pulse Ox 99 01/20/25 10:23 Oxygen Delivery Method Room Air 01/20/25 10:23 BMI result Body Mass Index 22.3 Skin Other: Well healed transverse and abdominal incisions. Assessment & Plan Assessment & Plan (1) S/P laparoscopic sleeve gastrectomy: Comment: 2022 Code(s): Z98.84 - Bariatric surgery status Category: Medical Plan: Patient is status post panniculectomy on 10/12/2024. She has also post sleeve gastrectomy on 11/2022. Recommend changing her meal plan: Orgain 1 scoop in the morning Fit crunch bar late morning, approximately 11-1 Another fit crunch bar at 3-5 Meal at 7 with 6 forks protein and 6 forks vegetables. She may return to the gym and exercise without restriction. She may return to yoga. We will have her return to the office in 6-8 weeks
[2025-01-20 10:23] VITALS: BP 129/78; PULSE 85; TEMP 36.1; O2SAT 99; BMI 22.3
== END 2025-01-20 10:55 | disposition home or self-care (01) ==
LOC: HO.HBS 10:01
PROVIDERS: PCP Internal Medicine; Visit Provider Physician Assistant Surgical
DX: Z71.3 Dietary counseling and surveillance (principal); Z98.84 Bariatric surgery status
CPT/HCPCS: 99213